=== PATIENT | female | born 1980 | race Caucasian/White ===

== ENCOUNTER 2018-09-05 20:48 | Emergency (ER) | payer SELFPAY ==
[~2018-09-05] VITALS: Ht 167.6 cm; Wt 99.8 kg
[~2018-09-05 20:48] MED LIST: ACHYD1T PO; CIPR500T78 PO; DCS100C PO; HYDR-3720 PO; IBP800T PO; METR500T PO; NITR100C3 PO; PHEN-566 PO; PREN1TAB14 PO; PREN1TAB19 PO
--- OUTSIDE RECORDS SUMMARY | 2018-09-05 20:53 | XMS REPORT ---
Author Author [facility] Address [address] [place] [address] Care Team Providers Care Quality Director Name Role Phone ALCIDES SANTILLAN Unavailable PROBLEMS Type Condition ICD9-CM Code FWP07-AV Code Onset Dates Condition Status SNOMED Code Problem Chronic pain syndrome G89.4 Active 924010389 Problem Long-term use of high-risk medication Z79.899 Active 043804510 Problem Low back pain M54.5 Active 729908520 Problem Obesity E66.9 Active 739041322 ALLERGIES No Known Allergies ENCOUNTERS Encounter Location Date Diagnosis [place] [id number] [place] [address] 61178- 2966 Apr, [facility] [place] [id number] [place] [address] 23529- 9684 Apr, Obesity E66.9 and Low back pain M54.5 [place] [id number] [place] [address] 21015- 4509 Mar, Chronic pain syndrome G89.4 [place] [id number] [place] [address] 63740- 8504 Feb, Chronic pain syndrome G89.4 ; Low back pain M54.5 ; Nipple discharge N64.52 ; Submandibular lymphadenopathy R59.0 and Obesity E66.9 [facility] [place] [id number] [place] [address] 85639- 6707 Jan, Low back pain M54.5 [place] [id number] [place] [address] 05622- 8130 Dec, Low back pain M54.5 [place] [address] 62896- 3427 Nov, [facility] [place] [id number] [place] [address] 80361- 0671 Nov, Low back pain M54.5 [facility] [place] [id number] [place] [address] 85623- 0715 Nov, Long-term use of high-risk medication Z79.899 ; Obesity E66.9 and Low back pain M54.5 [facility] [place] [id number] [place] [address] 70568- 5099 Nov, Obesity E66.9 ; Low back pain M54.5 and Long-term use of high-risk medication Z79.899 [facility] [place] [id number] [place] [address] 75122- 7759 Nov, [facility] [place] [id number] [place] [address] 88817- 6489 Oct, Low back pain M54.5 [facility] [place] [id number] [place] [address] 67314- 6778 September, Low back pain M54.5 and Obesity E66.9 [facility] [place] [address] 51627- 3445 Aug, Low back pain M54.5 [facility] [place] [id number] [place] [address] 33905- 0143 Jul, Low back pain M54.5 [facility] [place] [id number] [place] [address] 96042- 5133 Jul, [facility] [place] [id number] [place] [address] 01802- 5599 Jul, Low back pain M54.5 ; Obesity E66.9 and Submandibular lymphadenopathy R59.0 [facility] [place] [id number] [place] [address] 37802- 5440 May, Low back pain M54.5 [facility] [place] [address] 21400- 5226 Apr, Low back pain M54.5 [facility] [place] [address] [facility] [place] [id number] [place] [address] 52235- 2785 Mar, Low back pain M54.5 [facility] [place] [address] [facility] [id number] [place] [address] 74735- 1619 Feb, Low back pain M54.5 [facility] [place] [id number] [place] [address] 93584- 1450 Feb, Low back pain M54.5 [facility] [place] [id number] [place] [address] 44138- 1030 Jan, Low back pain M54.5 [facility] [place] [id number] [place] [address] 34790- 2022 Dec, Low back pain M54.5 ; Chronic pain syndrome G89.4 ; Anterior cervical adenopathy R59.0 and Overweight E66.3 [facility] [place] [id number] [place] [address] 43564- 0586 Dec, Low back pain M54.5 [facility] [place] [id number] [place] [address] 62624- 9084 Nov, Low back pain M54.5 [facility] [place] [id number] [place] [address] 09611- 9709 Oct, Low back pain M54.5 [facility] [place] [id number] [place] [address] 64721- 0174 September, Low back pain M54.5 ; Chronic pain syndrome G89.4 and Obesity E66.9 [facility] [place] [id number] [place] [address] 32265- 2993 September, Low back pain M54.5 [facility] [place] [id number] [place] [address] 00985- 4946 Aug, Low back pain M54.5 [facility] [place] [id number] [place] [address] 47899- 2479 Jul, Low back pain M54.5 [facility] [place] [id number] [place] [address] 88305- 9991 Jul, Anterior cervical adenopathy R59.0 [facility] [place] [id number] [place] [address] 87670- 0510 Jul, [facility] [place] [id number] [place] [address] 53636- 0464 Jul, Low back pain M54.5 ; Obesity E66.9 and Anterior cervical adenopathy R59.0 [facility] [place] [id number] [place] [address] 77154- 0486 May, [facility] [place] [id number] [place] [address] 90567- 4451 Apr, [facility] [place] [id number] [place] [address] 52773- 4942 Mar, Low back pain M54.5 and Obesity E66.9 [facility] [place] [id number] [place] [address] 15921- 7245 Feb, [facility] [place] [id number] [place] [address] 30345- 7813 Jan, [facility] [place] [id number] [place] [address] 88849- 3471 Jan, [facility] [place] [id number] [place] [address] 35721- 6556 Dec, Low back pain M54.5 and Obesity E66.9 [facility] [place] [id number] [place] [address] 31399- 9464 Nov, Low back pain M54.5 and Obesity E66.9 [facility] [place] [id number] [place] [address] 47821- 8024 Oct, Low back pain M54.5 and Obesity E66.9 [facility] [place] [id number] [place] [address] 78291- 4945 Oct, Low back pain M54.5 ; Obesity E66.9 and Long-term use of high-risk medication Z79.899 [facility] [place] [id number] [place] [address] 78416- 5103 September, [facility] [place] [address] 12921- 3378 September, Low back pain M54.5 ; Obesity E66.9 and Otitis externa of left ear H60.92 [facility] [place] [id number] [place] [address] 92654- 5979 Jul, [facility] [place] [id number] [place] [address] 31208- 1322 Jul, [facility] [place] [id number] [place] [address] 67640- 5458 Jul, Low back pain M54.5 and Obesity E66.9 [facility] [place] [id number] [place] [address] 51716- 5682 May, Low back pain M54.5 ; Obesity E66.9 and History of long- term use of multiple prescription drugs Z92.29 [facility] [id number] [place] [address] [id number] Apr, Encounter for dental examination Z01.20 [facility] [id number] [place] [address] [id number] Apr, Encounter for dental examination Z01.20 [facility] [place] [id number] [place] [address] 56529- 8821 Apr, [facility] [place] [id number] [place] [address] 78328- 0627 Apr, Low back pain M54.5 and Obesity E66.9 [facility] [place] [id number] [place] [address] 17517- 1184 Mar, Low back pain M54.5 and Obesity E66.9 [facility] [place] [id number] [place] [address] 17984- 8149 Feb, Lumbago 724.2 and Obesity, unspecified 278.00 [facility] [place] [id number] [place] [address] 45157- 7495 Jan, Unspecified episodic mood disorder 296.90 and Anxiety state , unspecified 300.00 [place] [address] 79100- 0995 Jan, Lumbago 724.2 and Obesity, unspecified 278.00 [place] [address] 63735- 2039 Jan, [place] [id number] [place] [address] 88380- 6794 Dec, Lumbago 724.2 and Obesity, unspecified 278.00 [place] [id number] [place] [address] 58983- 5103 Nov, Lumbago 724.2 and Obesity, unspecified 278.00 [place] [id number] [place] [address] 91271- 4969 Oct, Lumbago 724.2 and Obesity, unspecified 278.00 [place] [id number] [place] [address] 35552- 7859 September, Otitis externa of left ear 380.10 ; Ear pain 388.70 and Tooth decayed 521.00 [place] [id number] [place] [address] 56637- 8010 September, Lumbago 724.2 ; Obesity, unspecified 278.00 ; Other chronic pain 338.29 and Unspecified symptom associated with female genital organs 625.9 [place] [id number] [place] [address] 31201- 1471 Aug, [place] [address] 27363- 2546 Aug, [facility] [place] [facility] [address] [id number] [place] [address]- 7910 Jul, [facility] [place] [facility] [address] [id number] [place] [address]- 1331 Jul, [facility] [place] [facility] [address] [id number] [place] [address]- 7185 Jul, [facility] [place] [facility] [address] [id number] [place] [address]- 5996 Jul, [facility] [place] [facility] [address] [id number] [place] [address]- 2210 May, [facility] [place] [facility] [address] [id number] [place] [address]- 4183 May, [facility] [place] [facility] [address] [id number] [address]- 0238 May, [facility] [place] [facility] [address] [id number] [place] [address]- 2025 May, [facility] [place] [facility] [address] [id number] [place] [address]- 4803 Apr, [facility] [place] [facility] [address] [id number] [place] [address]- 5450 Apr, [facility] [place] [facility] [address] [id number] [place] [address]- 7530 Mar, [facility] [place] [facility] [address] [id number] [place] [address]- 0461 Mar, [facility] [place] [facility] [address] [id number] [place] [address]- 3126 Feb, [facility] [place] [facility] [address] [id number] [place]- 5465 Feb, [facility] [place] [facility] [address] [id number] [place] [address]- 4239 Jan, [facility] [place] [facility] [address] [id number] [place] [address]- 6712 Jan, [facility] [place] [facility] [address] [id number] [place] [address]- 6223 Dec, [facility] [place] [facility] [address] [id number] [place] [address]- 0986 Dec, [facility] [place] [facility] [address] [id number] [place] [address]- 4643 Nov, [facility] [place] [facility] [address] [id number] [place] [address]- 3984 Nov, [facility] [place] [facility] [address] [id number] [place] [address]- 3712 Nov, [facility] [place] [facility] [address] [id number] [place] [address]- 3342 Nov, [facility] [place] [facility] [address] [id number] [place] [address]- 4230 Oct, [facility] [place] [facility] [address] [id number] [place] [address]- 6764 Oct, [facility] [place] [facility] [address] [id number] [place] [address]- 2874 Apr, [facility] [place] [facility] [address] [id number] [place] [address]- 8184 Apr, [facility] [place] [facility] [address] [id number] [place] [address]- 6937 Nov, [facility] [place] [facility] [address] [id number] [place] [address]- 2659 Nov, [facility] [place] [facility] [address] [id number] [place] [address]- 2546 Jul, [facility] [place] [facility] [address] [id number] [place] [address]- 2546 Jul, [facility] [place] [facility] [address] [id number] [place] [address]- 2772 Jan, [facility] [place] [address] [facility] [id number] [place] [address]- 2156 Jul, IMMUNIZATIONS No Known Immunizations SOCIAL HISTORY Never Assessed REASON FOR VISIT Weight and pain management Rad Mckeon MA PLAN OF CARE Activity Details Follow Up 4 Weeks. 3 Months Reason:weight. Pain VITAL SIGNS Height 66 in 2018-05-10 Weight 216.2 lbs 2018-05-10 Temperature 97.9 degrees Fahrenheit 2018-05-10 Heart Rate 63 bpm 2018-05-10 Respiratory Rate 18 2018-05-10 BMI 34.89 kg/m2 2018-05-10 Blood pressure systolic 122 mmHg 2018-05-10 Blood pressure diastolic 70 mmHg 2018-05-10 MEDICATIONS Medication Instructions Dosage Frequency Start Date End Date Duration Status Hydrocodone-Acetaminophen 10-325 MG Orally every 8 hours PRN pain- Must last 28 days 1 Tablet Apr, 28 days Active Phentermine HCl 37.5 mg Orally Once a day 1 tablet 24h 28 days Active RESULTS No Results PROCEDURES No Known procedures INSTRUCTIONS MEDICATIONS ADMINISTERED No Known Medications MEDICAL (GENERAL) HISTORY Type Description Date Medical History chronic pain Medical History obesity Medical History hernia Medical History headache Medical History PCOS (Polycystic Ovary Syndrome) Surgical History cholecystectomy Berger) 02/2008 Surgical History hernia repair-umbilical 02/2008 Surgical History partial hysterectomy (Александр) 08/2013 Surgical History section 2007,2012,2013 Surgical History carpal tunnel release (B) Surgical History salpingectomy (R) r/t ectopic Hospitalization History Surgery(s)/Childbirth(s) only
--- OUTSIDE RECORDS SUMMARY | 2018-09-05 20:53 | XMS REPORT ---
Author Author Migration, Doctor Organization [facility] Address Unknown Phone Unavailable Care Team Providers Care Deputy General Counsel Name Role Phone Migration, Doctor Unavailable Unavailable PROBLEMS Type Condition ICD9-CM Code [id number] Code Onset Dates Condition Status SNOMED Code Problem Long-term use of high-risk medication Z79.899 Active 471842377 Problem Chronic pain syndrome G89.4 Active 810752101 Problem Obesity E66.9 Active 212563358 Problem Low back pain M54.5 Active 810751197 ALLERGIES No Information ENCOUNTERS Encounter Location Date Diagnosis [place] [id number] [place] [address] 78980- 8570 Aug, [facility] [address] 9[address]23- 2240 Jul, Low back pain M54.5 [facility] [id number] [place] [address] 47583- 8223 Jul, Low back pain M54.5 [facility] [id number] [place] [address] 51409- 5949 May, Low back pain M54.5 [facility] [id number] [place] [address] 54638- 0618 Apr, [facility] [address] 01223- 5582 Apr, Obesity E66.9 and Low back pain M54.5 [facility] [address] 23381- 0324 Mar, Chronic pain syndrome G89.4 [facility] [id number] [place] [address] 54689- 5905 17 Feb, 2018 Chronic pain syndrome G89.4 ; Low back pain M54.5 ; Nipple discharge N64.52 ; Submandibular lymphadenopathy R59.0 and Obesity E66.9 [facility] [id number] [place] [address] 39837- 4740 Jan, Low back pain M54.5 [facility] [id number] [place] [address] 87863- 3983 Dec, Low back pain M54.5 [facility] [address] 14655- 0077 Nov, [facility] [id number] [place] [address] 48442- 1126 Nov, Low back pain M54.5 [facility] [id number] [place] [address] 66856- 4073 Nov, Long-term use of high-risk medication Z79.899 ; Obesity E66.9 and Low back pain M54.5 [facility] [id number] [place] [address] 06949- 5791 Nov, Obesity E66.9 ; Low back pain M54.5 and Long-term use of high-risk medication Z79.899 [facility] [id number] [place] [address] 60174- 5519 Nov, [facility] [id number] [place] [address] 39979- 5474 Oct, Low back pain M54.5 [facility] [id number] [place] [address] 13262- 7771 September, Low back pain M54.5 and Obesity E66.9 [facility] [id number] [place] [address] 77132- 9635 Aug, Low back pain M54.5 [facility] [id number] [place] [address] 67929- 7843 Jul, Low back pain M54.5 [facility] [address] 64567- 9329 Jul, [facility] [address] [facility] [id number] [place] [address] 14065- 7619 Jul, Low back pain M54.5 ; Obesity E66.9 and Submandibular lymphadenopathy R59.0 [facility] [id number] [place] [address] 68608- 8114 May, Low back pain M54.5 [facility] [address] 62329- 0628 Apr, Low back pain M54.5 [facility] [address] 85374- 9077 Mar, Low back pain M54.5 [facility] [id number] [place] [address] 13486- 6417 Feb, Low back pain M54.5 [facility] [address] 00824- 3299 Feb, Low back pain M54.5 [facility] [address] 19783- 1793 Jan, Low back pain M54.5 [facility] [id number] [place] [address] 04675- 2713 Dec, Low back pain M54.5 ; Chronic pain syndrome G89.4 ; Anterior cervical adenopathy R59.0 and Overweight E66.3 [facility] [id number] [place] [address] 35776- 3029 Dec, Low back pain M54.5 [facility] [id number] [place] [address] 85976- 4606 Nov, Low back pain M54.5 [facility] [id number] [place] [address] 53832- 8823 Oct, Low back pain M54.5 [facility] [id number] [place] [address] 93592- 3375 September, Low back pain M54.5 ; Chronic pain syndrome G89.4 and Obesity E66.9 [facility] [id number] [place] [address] 89575- 8361 September, Low back pain M54.5 [facility] [id number] [place] [address] 07698- 1205 Aug, Low back pain M54.5 [facility] [id number] [place] [address] 00213- 8575 Jul, Low back pain M54.5 [facility] [id number] [place] [address] 32047- 8132 Jul, Anterior cervical adenopathy R59.0 [facility] [id number] [place] [address] 55669- 1379 Jul, [facility] [id number] [place] [address] 97645- 8062 Jul, Low back pain M54.5 ; Obesity E66.9 and Anterior cervical adenopathy R59.0 [facility] [id number] [place] [address] 80195- 5129 May, [facility] [id number] [place] [address] 75728- 6221 Apr, [facility] [id number] [place] [address] 62217- 9255 Mar, Low back pain M54.5 and Obesity E66.9 [facility] [id number] [place] [address] 13665- 3329 Feb, [facility] [id number] [place] [address] 06921- 2382 22 Jan, 2016 [facility] [id number] [place] [address] 91950- 8259 19 Jan, 2016 [facility] [id number] [place] [address] 53235- 9450 Dec, Low back pain M54.5 and Obesity E66.9 [facility] [id number] [place] [address] 61174- 8237 Nov, Low back pain M54.5 and Obesity E66.9 [facility] [id number] [place] [address] 67207- 2067 Oct, Low back pain M54.5 and Obesity E66.9 [facility] [id number] [place] [address] 55492- 1873 Oct, Low back pain M54.5 ; Obesity E66.9 and Long-term use of high-risk medication Z79.899 [facility] [id number] [place] [address] 27157- 3309 September, [place] [address] 65410- 2314 September, Low back pain M54.5 ; Obesity E66.9 and Otitis externa of left ear H60.92 [facility] [id number] [place] [address] 19305- 9694 Jul, [facility] [id number] [place] [address] 99974- 4171 Jul, [facility] [id number] [place] [address] 00656- 6009 Jul, Low back pain M54.5 and Obesity E66.9 [facility] [id number] [place] [address] 26857- 2125 May, Low back pain M54.5 ; Obesity E66.9 and History of long- term use of multiple prescription drugs Z92.29 [facility] [id number] [place] [address] [id number] Apr, Encounter for dental examination Z01.20 [facility] [id number] [place] [address] [id number] Apr, Encounter for dental examination Z01.20 [facility] [id number] [place] [address] 62909- 9863 Apr, [facility] [id number] [place] [address] 665851- 9624 Apr, Low back pain M54.5 and Obesity E66.9 [place] [address] 264473- 4370 Mar, Low back pain M54.5 and Obesity E66.9 [place] [id number] [place] [address] 64363- 4429 Feb, Lumbago 724.2 and Obesity, unspecified 278.00 [place] [id number] [place] [address] 19483- 4003 Jan, Unspecified episodic mood disorder 296.90 and Anxiety state , unspecified 300.00 [place] [id number] [place] [address] 52291- 9328 Jan, Lumbago 724.2 and Obesity, unspecified 278.00 [place] [id number] [place] [address] 39806- 8209 Jan, [facility] [id number] [place] [address] 13732- 9408 Dec, Lumbago 724.2 and Obesity, unspecified 278.00 [place] [id number] [place] [address] 40431- 3017 Nov, Lumbago 724.2 and Obesity, unspecified 278.00 [place] [id number] [place] [address] 95667- 7352 Oct, Lumbago 724.2 and Obesity, unspecified 278.00 [place] [id number] [place] [address] [id number]- 9424 September, Otitis externa of left ear 380.10 ; Ear pain 388.70 and Tooth decayed 521.00 [facility] [address] [address]- 6239 September, Lumbago 724.2 ; Obesity, unspecified 278.00 ; Other chronic pain 338.29 and Unspecified symptom associated with female genital organs 625.9 [facility] [address] [address]- 2143 Aug, [facility] [id number] [address]- 7736 Aug, [facility] [address] [address]- 4786 Jul, [facility] [id number] [address]- 9586 Jul, [facility] [address] [address]- 2946 Jul, [facility] [address] [address]- 8076 Jul, [facility] [address] [address]- 9938 May, [facility] [address] [address]- 9006 May, [facility] [address] [address]- 7418 May, [facility] [address] [address]- 5116 May, [facility] [address] [address]- 7356 Apr, [facility] [address] [address]- 5856 Apr, [facility] [id number] [address]- 7036 Mar, [facility] [id number] [place] [address]- 5137 Mar, [facility] [place] [facility] [address] [id number] [place] [address]- 0608 Feb, [facility] [place] [facility] [address] [id number] [place] [address]- 6040 Feb, [facility] [place] [facility] [address] [id number] [place] [address]- 2669 Jan, [facility] [place] [facility] [address] [id number] [place] [address]- 3721 Jan, [facility] [place] [facility] [address] [id number] [place] [address]- 8829 Dec, [facility] [place] [facility] [address] [id number] [place] [address]- 2850 Dec, [facility] [place] [facility] [address] [id number] [place] [address]- 3125 Nov, [facility] [place] [facility] [address] [id number] [place] [address]- 9894 Nov, [facility] [place] [facility] [address] [id number] [place] [address]- 4020 Nov, [facility] [place] [facility] [address] [id number] [place] [address]- 1742 Nov, [facility] [place] [facility] [address] [id number] [place] [address]- 6991 Oct, [facility] [place] [facility] [address] [id number] [place] [address]- 4542 Oct, [facility] [place] [facility] [address] [id number] [place] [address]- 5329 Apr, [facility] [place] [facility] [address] [id number] [place] [address]- 6486 Apr, [facility] [place] [facility] [address] [id number] [place] [address]- 0302 Nov, [facility] [address] [facility] [id number] [address]- 6816 Nov, [facility] [address] [facility] [id number] [address]- 2546 Jul, [facility] [address] [facility] [id number] [address]- 2546 Jul, [facility] [id number] [address]- 2546 Jan, [facility] [address] [facility] [id number] [address]- 7256 Jul, IMMUNIZATIONS No Known Immunizations SOCIAL HISTORY Never Assessed [place]AS[place]ISIT [facility] [place] VITAL SIGNS MEDICATIONS Medication Instructions Dosage Frequency Start Date End Date Duration Status Hydrocodone-Acetaminophen 10-325 mg 1 Tablet by Oral route every 8 hours PRN MUST LAST 30 DAYS Jul, Active phentermine 37.5 mg 1 capsule by Oral route 1 time per day for 30 day(s) DX - OBESITY May, Active RESULTS No Results PROCEDURES No Known [...]
--- OUTSIDE RECORDS SUMMARY | 2018-09-05 20:54 | XMS REPORT ---
Author Author KING ALCIDES [facility] Address [address] [place] [address] Care Team Providers Care [employer] Maintenance Consultant Name Role Phone ALCIDES SANTILLAN Unavailable PROBLEMS Type Condition ICD9-CM Code CFK87-WT Code Onset Dates Condition Status SNOMED Code Problem Chronic pain syndrome G89.4 Active 806124411 Problem Long-term use of high-risk medication Z79.899 Active 940674123 Problem Low back pain M54.5 Active 251296301 Problem Obesity E66.9 Active 373077580 ALLERGIES No Information ENCOUNTERS Encounter Location Date Diagnosis [place] [id number] [address] Mar, [facility] [address] [address] Mar, Chronic pain syndrome G89.4 [facility] [address] [address]- [address] Feb, Chronic pain syndrome G89.4 ; Low back pain M54.5 ; Nipple discharge N64.52 ; Submandibular lymphadenopathy R59.0 and Obesity E66.9 [facility] [address] [place] [id number] [place] [address]01- 2282 Jan, Low back pain M54.5 [facility] [address] [place] [id number] [place] [address] 21202- 5906 Dec, Low back pain M54.5 [facility] [address] [address]- [address] Nov, [facility] [address] 327[address]- 9965 Nov, Low back pain M54.5 [facility] [address] [place] [id number] [place] [address] 76215- 8511 Nov, Long-term use of high-risk medication Z79.899 ; Obesity E66.9 and Low back pain M54.5 [facility] [address] [place] [id number] [place] [address] 31291- 8568 Nov, Obesity E66.9 ; Low back pain M54.5 and Long-term use of high-risk medication Z79.899 [facility] [address] [place] [id number] [place] [address] 94494- 4419 Nov, [facility] [address] [place] [id number] [place] [address] 70397- 8831 Oct, Low back pain M54.5 [facility] [address] [place] [id number] [place] [address] 45245- 4891 September, Low back pain M54.5 and Obesity E66.9 [facility] [address] [place] [id number] [place] [address] 78394- 0604 Aug, Low back pain M54.5 [facility] [address] [place] [id number] [place] [address] 70082- 5387 Jul, Low back pain M54.5 [facility] [address] [place] [id number] [place] [address] 17462- 8289 Jul, [facility] [address] [place] [id number] [place] [address] 24804- 3825 Jul, Low back pain M54.5 ; Obesity E66.9 and Submandibular lymphadenopathy R59.0 [facility] [address] [place] [id number] [place] [address] 88632- 9052 May, Low back pain M54.5 [facility] [address] [place] [id number] [place] [address] 50770- 2700 Apr, Low back pain M54.5 [facility] [address] [place] [id number] [place] [address] 57159- 3475 Mar, Low back pain M54.5 [facility] [address] [place] [id number] [place] [address] 23114- 0314 Feb, Low back pain M54.5 [facility] [address] [facility] [id number] [place] [address] 52429- 1077 Feb, Low back pain M54.5 [facility] [address] [place] [id number] [place] [address] 84761- 4997 Jan, Low back pain M54.5 [facility] [address] [place] [id number] [place] [address] 65150- 1528 Dec, Low back pain M54.5 ; Chronic pain syndrome G89.4 ; Anterior cervical adenopathy R59.0 and Overweight E66.3 [facility] [address] [place] [id number] [place] [address] 17062- 2097 Dec, Low back pain M54.5 [facility] [address] [place] [id number] [place] [address] 06393- 4777 Nov, Low back pain M54.5 [facility] [address] [place] [id number] [place] [address] 49005- 3178 Oct, Low back pain M54.5 [facility] [address] [place] [id number] [place] [address] 63614- 0873 September, Low back pain M54.5 ; Chronic pain syndrome G89.4 and Obesity E66.9 [facility] [address] [place] [id number] [place] [address] 04603- 6498 September, Low back pain M54.5 [facility] [address] [place] [id number] [place] [address] 10917- 9045 Aug, Low back pain M54.5 [facility] [address] [place] [id number] [place] [address] 00224- 0092 Jul, Low back pain M54.5 [facility] [address] [place] [id number] [place] [address] 77523- 3957 Jul, Anterior cervical adenopathy R59.0 [facility] [id number] [place] [address] 66652- 3708 Jul, [facility] [address] [place] [id number] [place] [address] 63433- 7578 Jul, Low back pain M54.5 ; Obesity E66.9 and Anterior cervical adenopathy R59.0 [facility] [address] [place] [id number] [place] [address] 12181- 3874 May, [facility] [id number] [place] [address] 82229- 1699 Apr, [facility] [address] [place] [id number] [place] [address] 60466- 4869 Mar, Low back pain M54.5 and Obesity E66.9 [facility] [address] [place] [id number] [place] [address] 97920- 8247 Feb, [facility] [address] [place] [id number] [place] [address] 65080- 0121 Jan, [facility] [address] [place] [id number] [place] [address] 44383- 8915 Jan, [facility] [address] [place] [id number] [place] [address] 81518- 4482 Dec, Low back pain M54.5 and Obesity E66.9 [facility] [id number] [place] [address] 63985- 7972 Nov, Low back pain M54.5 and Obesity E66.9 [facility] [id number] [place] [address] 12747- 5179 Oct, Low back pain M54.5 and Obesity E66.9 [facility] [address] [place] [id number] [place] [address] 71792- 8121 Oct, Low back pain M54.5 ; Obesity E66.9 and Long-term use of high-risk medication Z79.899 [facility] [address] [place] [id number] [place] [address] 33954- 7693 September, [facility] [address] [place] [id number] [place] [address] 09597- 8648 September, Low back pain M54.5 ; Obesity E66.9 and Otitis externa of left ear H60.92 [facility] [address] 12131- 6961 Jul, [facility] [address] [place] [id number] [place] [address] 72808- 9082 Jul, [facility] [address] [place] [id number] [place] [address] 97285- 0288 Jul, Low back pain M54.5 and Obesity E66.9 [facility] [address] [place] [id number] [place] [address] 69151- 2814 May, Low back pain M54.5 ; Obesity E66.9 and History of long- term use of multiple prescription drugs Z92.29 [facility] [id number] [place] [address] [id number] Apr, Encounter for dental examination Z01.20 [facility] [address] [place] [id number] [place] [address] [id number] Apr, Encounter for dental examination Z01.20 [facility] [address] [place] [id number] [place] [address] 46949- 3576 Apr, [facility] [address] [place] [id number] [place] [address] 65373- 8868 Apr, Low back pain M54.5 and Obesity E66.9 [facility] [address] [place] [id number] [place] [address] 13814- 3015 Mar, Low back pain M54.5 and Obesity E66.9 [facility] [address] [place] [id number] [place] [address] 87905- 5004 Feb, Lumbago 724.2 and Obesity, unspecified 278.00 [facility] [address] [address]- 9367 Jan, Unspecified episodic mood disorder 296.90 and Anxiety state , unspecified 300.00 [facility] [address] [place] [id number] [place] [address] 07775- 7941 Jan, Lumbago 724.2 and Obesity, unspecified 278.00 [facility] [address] [place] [id number] [place] [address] 06889- 4166 Jan, [facility] [address] [place] [id number] [place] [address] 00435- 0663 Dec, Lumbago 724.2 and Obesity, unspecified 278.00 [place] [address] [place] [id number] [place] [address] 73951- 1407 Nov, Lumbago 724.2 and Obesity, unspecified 278.00 [place] [address] [place] [id number] [place] [address] 08860- 7896 Oct, Lumbago 724.2 and Obesity, unspecified 278.00 [place] [address] [place] [id number] [place] [address] 74802- 3410 September, Otitis externa of left ear 380.10 ; Ear pain 388.70 and Tooth decayed 521.00 [place] [address] [place] [id number] [place] [address] 45656- 3496 September, Lumbago 724.2 ; Obesity, unspecified 278.00 ; Other chronic pain 338.29 and Unspecified symptom associated with female genital organs 625.9 [place] [address] [place] [id number] [place] [address] 66501- 6001 Aug, [place] [address] [place] [id number] [place] [address] 81978- 6757 Aug, [place] [address] [place] [id number] [place] [address] 26459- 6397 Jul, [facility] [place] [facility] [address] [id number] [place] [address]- 2417 Jul, [facility] [place] [facility] [address] [id number] [place] [address]- 8406 Jul, [facility] [place] [facility] [address] [id number] [place] [address]- 7968 Jul, [facility] [place] [facility] [address] [id number] [place] [address]- 6801 May, [facility] [place] [facility] [address] [id number] [place] [address]- 5177 May, [facility] [place] [facility] [address] [id number] [place] [address]- 5751 May, [facility] [place] [facility] [address] [id number] [place] [address]- 1904 May, [facility] [place] [facility] [address] [id number] [place] [address]- 6443 Apr, [facility] [place] [facility] [address] [id number] [place] [address]- 9990 Apr, [facility] [place] [facility] [address] [id number] [place] [address]- 2139 Mar, [facility] [place] [facility] [address] [id number] [place] [address]- 0485 Mar, [facility] [place] [facility] [address] [id number] [place] [address]- 5087 Feb, [facility] [place] [facility] [address] [id number] [place] [address]- 9501 Feb, [facility] [place] [facility] [address] [id number] [place] [address]- 9681 Jan, [facility] [place] [facility] [address] [id number] [place] [address]- 8875 Jan, [facility] [place] [facility] [address] [id number] [place] [address]- 0316 Dec, [facility] [address] [facility] [id number] [place] [address]998 Dec, [facility] [address] [facility] [id number] [place] [address]- 3207 Nov, [facility] [address] [facility] [id number] [place] [address]- 0116 Nov, [facility] [address] [facility] [id number] [place] [address]- 6652 Nov, [facility] [address] [facility] [id number] [place] [address]- 0973 Nov, [facility] [address] [facility] [id number] [place] [address]- 4908 Oct, [facility] [address] [facility] [id number] [place] [address]- 5681 Oct, [facility] [address] [facility] [id number] [place] [address]- 3204 Apr, [facility] [address] [facility] [id number] [place] [address]32 Apr, [facility] [address] [facility] [id number] [place] [address]- 8578 Nov, [facility] [address] [facility] [id number] [address]- 5519 Nov, [facility] [address] [facility] [id number] 5908 Jul, [facility] [address] [facility] [id number] [place] [address]- 1430 Jul, [facility] [address] [facility] [id number] [address]- 7776 Jan, [facility] [address] [facility] [id number] [place] 7102 Jul, IMMUNIZATIONS No Known Immunizations SOCIAL HISTORY Never Assessed REASON FOR VISIT Controlled refill 04/13 PLAN OF CARE VITAL SIGNS MEDICATIONS Medication Instructions Dosage Frequency Start Date End Date Duration Status Hydrocodone-Acetaminophen 10-325 MG Orally every 8 hours PRN pain- Must last 28 days 1 Tablet Mar, 28 days Active RESULTS No Results PROCEDURES [...]
--- OUTSIDE RECORDS SUMMARY | 2018-09-05 20:54 | XMS REPORT ---
Author Author ALCIDSE SANTILLAN [facility] Address [address] [place] [address] Care Team Providers Care Lath Hand Name Role Phone LOBO SANTILLANTA Unavailable PROBLEMS Type Condition ICD9-CM Code IVS51-WQ Code Onset Dates Condition Status SNOMED Code Problem Chronic pain syndrome G89.4 Active 412719851 Problem Long-term use of high-risk medication Z79.899 Active 715609280 Problem Low back pain M54.5 Active 282136664 Problem Obesity E66.9 Active 187034092 ALLERGIES No Information ENCOUNTERS Encounter Location Date Diagnosis [place] [id number] [address] Jan, Low back pain M54.5 [facility] [address] [address] Dec, Low back pain M54.5 [facility] [address] [place] [id number] [place] [address] 65604- 2677 Nov, [facility] [address] [id number] [place] [address] 40008- 5027 Nov, Low back pain M54.5 [facility] [address] [address] Nov, Long-term use of high-risk medication Z79.899 ; Obesity E66.9 and Low back pain M54.5 [facility] [address] [address]- [address] Nov, Obesity E66.9 ; Low back pain M54.5 and Long-term use of high-risk medication Z79.899 [facility] [address] [id number] [place] [address] 26132- 2728 Nov, [facility] [address] [facility] [id number] [place] [address] 07396- 1240 Oct, Low back pain M54.5 [facility] [address] [facility] [id number] [place] [address] 35406- 4366 September, Low back pain M54.5 and Obesity E66.9 [facility] [address] [id number] [place] [address] 18892- 2435 Aug, Low back pain M54.5 [facility] [address] [place] [id number] [place] [address] 20951- 7847 Jul, Low back pain M54.5 [facility] [address] [id number] [place] [address] 18994- 1659 Jul, [facility] [id number] [place] [address] 74643- 6628 Jul, Low back pain M54.5 ; Obesity E66.9 and Submandibular lymphadenopathy R59.0 [facility] [address] [id number] [place] [address] 08766- 2763 May, Low back pain M54.5 [facility] [address] [place] [id number] [place] [address] 77961- 3028 Apr, Low back pain M54.5 [facility] [address] [place] [id number] [place] [address] 79690- 9501 Mar, Low back pain M54.5 [facility] [address] [place] [id number] [place] [address] 39079- 8470 Feb, Low back pain M54.5 [facility] [address] [id number] [place] [address] 35478- 5792 03 Feb, 2017 Low back pain M54.5 [facility] [address] [place] [id number] [place] [address] 85596- 8332 05 Jan, 2017 Low back pain M54.5 [facility] [address] [place] [address] Dec, Low back pain M54.5 ; Chronic pain syndrome G89.4 ; Anterior cervical adenopathy R59.0 and Overweight E66.3 [facility] [id number] [place] [address] 80263- 0722 Dec, Low back pain M54.5 [facility] [address] [id number] [place] [address] 08529- 4875 Nov, Low back pain M54.5 [facility] [address] [place] [id number] [place] [address] 30589- 8499 Oct, Low back pain M54.5 [facility] [address] [place] [id number] [place] [address] 69045- 2621 September, Low back pain M54.5 ; Chronic pain syndrome G89.4 and Obesity E66.9 [facility] [address] [place] [id number] [place] [address] 73127- 7416 September, Low back pain M54.5 [facility] [address] [place] [place] [id number] [place] [address] 65728- 5253 Aug, Low back pain M54.5 [facility] [address] [place] [id number] [place] [address] 96897- 5750 Jul, Low back pain M54.5 [facility] [address] [place] [id number] [place] [address] 42123- 0407 Jul, Anterior cervical adenopathy R59.0 [facility] [address] [place] [place] [id number] [place] [address] 94283- 0347 Jul, [facility] [address] [place] [id number] [place] [address] 78677- 8388 Jul, Low back pain M54.5 ; Obesity E66.9 and Anterior cervical adenopathy R59.0 [facility] [id number] [place] [address] 55650- 4857 May, [facility] [address] [address] 9277 14 Apr, 2016 [facility] [address] [id number] [place] [address] 25662- 8929 Mar, Low back pain M54.5 and Obesity E66.9 [facility] [address] [id number] [place] [address] 40605- 8967 Feb, [facility] [address] [place] [id number] [place] [address] 86789- 7420 Jan, [facility] [address] [place] [id number] [place] [address] 09852- 1105 Jan, [facility] [address] [id number] [place] [address] 89412- 8198 Dec, Low back pain M54.5 and Obesity E66.9 [facility] [address] [id number] [place] [address] 16382- 7410 Nov, Low back pain M54.5 and Obesity E66.9 [facility] [address] [id number] [place] [address] 64249- 1707 Oct, Low back pain M54.5 and Obesity E66.9 [facility] [address] [id number] [place] [address] 21118- 8298 Oct, Low back pain M54.5 ; Obesity E66.9 and Long-term use of high-risk medication Z79.899 [facility] [address] [address]- 6311 September, [facility] [address] [id number] [place] [address] 02000- 8078 September, Low back pain M54.5 ; Obesity E66.9 and Otitis externa of left ear H60.92 [facility] [address] [address]- 5934 Jul, [facility] [address] [place] [id number] [place] [address] 20807- 0580 Jul, [facility] [address] [place] [id number] [place] [address] 55536- 3894 Jul, Low back pain M54.5 and Obesity E66.9 [facility] [address] [id number] [place] [address] 85136- 2551 May, Low back pain M54.5 ; Obesity E66.9 and History of long- term use of multiple prescription drugs Z92.29 [facility] [address] [place] [id number] [place] [address] [id number] Apr, Encounter for dental examination Z01.20 [facility] [address] [id number] Apr, Encounter for dental examination Z01.20 [facility] [address] [place] [id number] [place] [address] 18879- 8526 Apr, [facility] [address] [place] [id number] [place] [address] 00214- 8585 Apr, Low back pain M54.5 and Obesity E66.9 [facility] [address] [place] [id number] [place] [address] 03801- 7563 Mar, Low back pain M54.5 and Obesity E66.9 [facility] [address] [id number] [place] [address] 60137- 2417 Feb, Lumbago 724.2 and Obesity, unspecified 278.00 [facility] [address] [place] [place] [id number] [place] [address] 42914- 9827 Jan, Unspecified episodic mood disorder 296.90 and Anxiety state , unspecified 300.00 [facility] [address] [place] [id number] [place] [address] 75849- 1546 Jan, Lumbago 724.2 and Obesity, unspecified 278.00 [facility] [address] [id number] [place] [address] 70197- 6270 Jan, [facility] [address], [place] [address]- 9381 Dec, Lumbago 724.2 and Obesity, unspecified 278.00 [facility] [address] [place] [place] [id number] [place] [address] 989221- 9976 Nov, Lumbago 724.2 and Obesity, unspecified 278.00 [facility] [address] [id number] [place] [address] 11463- 3193 Oct, Lumbago 724.2 and Obesity, unspecified 278.00 [facility] [address] [id number] [place] [address] 366796- 9424 September, Otitis externa of left ear 380.10 ; Ear pain 388.70 and Tooth decayed 521.00 [facility] [id number] [place] [address] 04048- 1372 September, Lumbago 724.2 ; Obesity, unspecified 278.00 ; Other chronic pain 338.29 and Unspecified symptom associated with female genital organs 625.9 [facility] [address] [address]- 9691 Aug, [facility] [id number] [place] [address] 43637- 4218 Aug, [facility] [address], [place] [address]- 7010 Jul, [facility] [id number] [address]- 9531 Jul, [facility] [address], [place] [address]- 4403 Jul, [facility] [address] [id number] [place] [address] 228773- 3245 Jul, [facility] [address] 3232 May, [facility] [address] [id number] [place] [address]- 2096 May, [facility] [place] [facility] [address] [id number] [place] [address]- 3941 May, [facility] [place] [facility] [address] [id number] [place] [address]- 8910 May, [facility] [place] [facility] [address] [id number] [place] [address]- 9472 Apr, [facility] [place] [facility] [address] [id number] [place] [address]- 9268 Apr, [facility] [place] [facility] [address] [id number] [place] [address]- 4164 Mar, [facility] [place] [facility] [address] [id number] [place] [address]- 2150 Mar, [facility] [place] [facility] [address] [id number] [place] [address]- 9317 Feb, [facility] [place] [facility] [address] [id number] [place] [address]- 7869 Feb, [facility] [place] [facility] [address] [id number] [place] [address]- 9374 Jan, [facility] [place] [facility] [address] [id number] [place] [address]- 0842 Jan, [facility] [place] [facility] [address] [id number] [place] [address]- 6304 Dec, [facility] [place] [facility] [address] [id number] [place] [address]- 2247 Dec, [facility] [place] [facility] [address] [id number] [place] [address]- 6816 Nov, [facility] [place] [facility] [address] [id number] [place] [address]- 9795 Nov, [facility] [place] [facility] [address] [id number] [place] [address]- 6891 Nov, [facility] [id number] [address]- 1035 Nov, [facility] [address], [place] [address]- 5038 Oct, [facility] [address], [place] [address]- 2040 Oct, [facility] [address], [place] [address]- 2482 Apr, [facility] [address], [place] [address]- 9932 Apr, [facility] [address], [place] [address]- 6768 Nov, [facility] [address], [place] [address]- 0657 Nov, [facility] [address], [place] [address]- 9325 Jul, [facility] [address] [place] [address]- 0044 Jul, [facility] [address], [place] [address]- 3154 Jan, [facility] [address], [place] [address]- 3868 Jul, IMMUNIZATIONS No Known Immunizations SOCIAL HISTORY Never Assessed REASON FOR VISIT Controlled Med Refill PLAN OF CARE VITAL SIGNS MEDICATIONS Medication Instructions Dosage Frequency Start Date End Date Duration Status Hydrocodone-Acetaminophen 10-325 MG Orally every 8 hours PRN pain- Must last 28 days 1 Tablet Jan, 28 days Active RESULTS No Results PROCEDURES [...]
--- OUTSIDE RECORDS SUMMARY | 2018-09-05 20:54 | XMS REPORT ---
Author Author KING ALCIDES [facility] Address [address] [place] [address] Care Team Providers Care Retail Business Development Manager Name Role Phone ALCIDES SANTILLAN Unavailable PROBLEMS Type Condition ICD9-CM Code WUM85-FB Code Onset Dates Condition Status SNOMED Code Problem Chronic pain syndrome G89.4 Active 293595026 Problem Long-term use of high-risk medication Z79.899 Active 848078475 Problem Low back pain M54.5 Active 317483504 Problem Obesity E66.9 Active [id number] ALLERGIES No Information ENCOUNTERS Encounter Location Date Diagnosis [place] [id number] [place] [address] 13162- 0674 Apr, [facility] [address] 9[address]45- 4788 Apr, Obesity E66.9 and Low back pain M54.5 [facility] [id number] [place] [address] 90671- 7620 Mar, Chronic pain syndrome G89.4 [facility] [id number] [place] [address] 99071- 3899 Feb, Chronic pain syndrome G89.4 ; Low back pain M54.5 ; Nipple discharge N64.52 ; Submandibular lymphadenopathy R59.0 and Obesity E66.9 [facility] [id number] [place] [address] 57548- 5590 Jan, Low back pain M54.5 [facility] [id number] [place] [address] 46605- 4969 Dec, Low back pain M54.5 [place] [address] 59284- 9465 Nov, [facility] [id number] [place] [address] 84768- 8448 Nov, Low back pain M54.5 [facility] [id number] [place] [address] 19277- 2362 Nov, Long-term use of high-risk medication Z79.899 ; Obesity E66.9 and Low back pain M54.5 [facility] [address] 97967- 2879 Nov, Obesity E66.9 ; Low back pain M54.5 and Long-term use of high-risk medication Z79.899 [facility] [address] 78653- 6044 Nov, [facility] [address] 76155- 9970 Oct, Low back pain M54.5 [facility] [id number] [place] [address] 38459- 4232 September, Low back pain M54.5 and Obesity E66.9 [facility] [address] 27303- 9318 Aug, Low back pain M54.5 [facility] [id number] [place] [address] 81029- 0820 Jul, Low back pain M54.5 [facility] [id number] [place] [address] 00456- 5411 Jul, [facility] [id number] [place] [address] 92456- 4477 Jul, Low back pain M54.5 ; Obesity E66.9 and Submandibular lymphadenopathy R59.0 [facility] [id number] [place] [address] 00691- 2819 May, Low back pain M54.5 [facility] [address] 61382- 9306 Apr, Low back pain M54.5 [facility] [address] [facility] [id number] [place] [address] 85004- 4350 Mar, Low back pain M54.5 [facility] [address] [facility] [id number] [place] [address] 23436- 3339 Feb, Low back pain M54.5 [facility] [id number] [place] [address] 14793- 0527 Feb, Low back pain M54.5 [facility] [id number] [place] [address] 60344- 9968 Jan, Low back pain M54.5 [facility] [id number] [place] [address] 99884- 0954 Dec, Low back pain M54.5 ; Chronic pain syndrome G89.4 ; Anterior cervical adenopathy R59.0 and Overweight E66.3 [facility] [id number] [place] [address] 77885- 9658 Dec, Low back pain M54.5 [facility] [id number] [place] [address] 82320- 6372 Nov, Low back pain M54.5 [facility] [id number] [place] [address] 16714- 3300 Oct, Low back pain M54.5 [facility] [id number] [place] [address] 25192- 8254 September, Low back pain M54.5 ; Chronic pain syndrome G89.4 and Obesity E66.9 [facility] [id number] [place] [address] 88648- 7475 September, Low back pain M54.5 [facility] [address] [facility] [id number] [place] [address] 84840- 1882 Aug, Low back pain M54.5 [facility] [id number] [place] [address] 13215- 3029 Jul, Low back pain M54.5 [facility] [id number] [place] [address] 62358- 8459 Jul, Anterior cervical adenopathy R59.0 [facility] [id number] [place] [address] 37222- 6248 Jul, [facility] [id number] [place] [address] 93581- 5016 Jul, Low back pain M54.5 ; Obesity E66.9 and Anterior cervical adenopathy R59.0 [facility] [id number] [place] [address] 66514- 5125 May, [facility] [id number] [place] [address] 19407- 2051 Apr, [facility] [id number] [place] [address] 15401- 2800 Mar, Low back pain M54.5 and Obesity E66.9 [facility] [id number] [place] [address] 23865- 9361 Feb, [facility] [id number] [place] [address] 25245- 1743 Jan, [facility] [id number] [place] [address] 47744- 9397 Jan, [facility] [id number] [place] [address] 84539- 8271 Dec, Low back pain M54.5 and Obesity E66.9 [facility] [id number] [place] [address] 96696- 9709 Nov, Low back pain M54.5 and Obesity E66.9 [facility] [id number] [place] [address] 34287- 4350 Oct, Low back pain M54.5 and Obesity E66.9 [facility] [id number] [place] [address] 69360- 5676 Oct, Low back pain M54.5 ; Obesity E66.9 and Long-term use of high-risk medication Z79.899 [facility] [id number] [place] [address] 36674- 7090 September, [facility] [address] 21681- 2965 September, Low back pain M54.5 ; Obesity E66.9 and Otitis externa of left ear H60.92 [facility] [id number] [place] [address] 49786- 9139 Jul, [facility] [id number] [place] [address] 83909- 9155 Jul, [facility] [id number] [place] [address] 31441- 4725 Jul, Low back pain M54.5 and Obesity E66.9 [facility] [id number] [place] [address] 37078- 4027 May, Low back pain M54.5 ; Obesity E66.9 and History of long- term use of multiple prescription drugs Z92.29 [facility] [id number] [place] [address] [id number] Apr, Encounter for dental examination Z01.20 [facility] [id number] [place] [address] [id number] Apr, Encounter for dental examination Z01.20 [facility] [id number] [place] [address] 49383- 5068 Apr, [facility] [id number] [place] [address] 00922- 4591 Apr, Low back pain M54.5 and Obesity E66.9 [facility] [id number] [place] [address] 26792- 9142 Mar, Low back pain M54.5 and Obesity E66.9 [facility] [id number] [place] [address] 89365- 7085 Feb, Lumbago 724.2 and Obesity, unspecified 278.00 [facility] [id number] [place] [address] 96177- 1914 Jan, Unspecified episodic mood disorder 296.90 and Anxiety state , unspecified 300.00 [place] [address] 22629- 5710 Jan, Lumbago 724.2 and Obesity, unspecified 278.00 [place] [address] 32916- 3733 Jan, [place] [id number] [place] [address] 87760- 9252 Dec, Lumbago 724.2 and Obesity, unspecified 278.00 [place] [id number] [place] [address] 51563- 1514 Nov, Lumbago 724.2 and Obesity, unspecified 278.00 [place] [address] 79553- 1370 Oct, Lumbago 724.2 and Obesity, unspecified 278.00 [place] [id number] [place] [address] 56105- 9758 September, Otitis externa of left ear 380.10 ; Ear pain 388.70 and Tooth decayed 521.00 [place] [id number] [place] [address] 77344- 8233 September, Lumbago 724.2 ; Obesity, unspecified 278.00 ; Other chronic pain 338.29 and Unspecified symptom associated with female genital organs 625.9 [place] [id number] [place] [address] 57581- 1139 14 Aug, 2014 [place] [address] 62679- 6556 Aug, [facility] [place] [facility] [address] [id number] [place] [address]- 3417 Jul, [facility] [place] [facility] [address] [id number] [place] [address]- 2029 Jul, [facility] [place] [facility] [address] [id number] [place] [address]- 8383 Jul, [facility] [place] [facility] [address] [id number] [place] [address]- 5362 Jul, [facility] [place] [facility] [address] [id number] [place] [address]- 2127 May, [facility] [place] [facility] [address] [id number] [place] [address]- 1834 May, [facility] [place] [facility] [address] [id number] [place] [address]- 1832 May, [facility] [place] [facility] [address] [id number], [place] [address]- 9434 May, [facility] [place] [facility] [address] [id number], [place] [address]- 2416 Apr, [facility] [place] [facility] [address] [id number], [place] [address]- 9165 Apr, [facility] [place] [facility] [address] [id number], [place] [address]- 3061 Mar, [facility] [place] [facility] [address] [id number], [place] [address]- 2819 Mar, [facility] [place] [facility] [address] [id number], [place] [address]- 9233 Feb, [facility] [place] [facility] [address] [id number] 8773 Feb, [facility] [place] [facility] [address] [id number] [place] [address]- 6251 Jan, [facility] [place] [facility] [address] [id number] [place] [address]- 0810 Jan, [facility] [address] [id number] [place] [address]- 3013 Dec, [facility] [place] [facility] [address] [id number] [place] [address]- 5746 Dec, [facility] [place] [facility] [address] [id number] [place] [address]- 0603 Nov, [facility] [place] [facility] [address] [id number] [place] [address]- 7419 Nov, [facility] [place] [facility] [address] [id number] [place] [address]- 3291 Nov, [facility] [place] [facility] [address] [id number] [place] Nov, [facility] [place] [facility] [address] [id number] [place] [address]- 9697 Oct, [facility] [address] [id number] [place] [address]- 0008 Oct, [facility] [place] [facility] [address] [id number] [place] [address]- 3365 Apr, [facility] [address] [id number] [place] [address]- 7694 Apr, [facility] [place] [facility] [address] [id number] [place] [address]- 6796 Nov, [facility] [place] [facility] [address] [id number] [place] [address]- 6996 Nov, [facility] [place] [facility] [address] [id number] [place] [address]- 4966 Jul, [facility] [place] [facility] [address] [id number] [place] [address]- 2546 Jul, [facility] [place] [facility] [address] [id number] [place] [address]- 2293 Jan, [facility] [address] [facility] [id number] [place] [address]- 4984 Jul, IMMUNIZATIONS No Known Immunizations SOCIAL HISTORY Never Assessed REASON FOR VISIT Refill request PLAN OF CARE VITAL SIGNS MEDICATIONS Unknown Medications RESULTS No Results PROCEDURES No Known procedures [...]
--- OUTSIDE RECORDS SUMMARY | 2018-09-05 20:55 | XMS REPORT ---
Author Author ALCIDES SANTILLAN [facility] Address [address] [place] [address] Care Team Providers Care Algebra Tutor Name Role Phone LOBO SANTILLANTA Unavailable PROBLEMS Type Condition ICD9-CM Code DYU42-AV Code Onset Dates Condition Status SNOMED Code Problem Chronic pain syndrome G89.4 Active 541743417 Problem Long-term use of high-risk medication Z79.899 Active 694261454 Problem Low back pain M54.5 Active 486048737 Problem Obesity E66.9 Active [id number] ALLERGIES No Information ENCOUNTERS Encounter Location Date Diagnosis [facility] [id number] [place] [address] 74783- 3615 Dec, Low back pain M54.5 [facility] [id number] [place] [address] 52542- 2470 Nov, [facility] [id number] [place] [address] 51354- 3511 Nov, Low back pain M54.5 [facility] [id number] [place] [address] 16367- 3479 Nov, Long-term use of high-risk medication Z79.899 ; Obesity E66.9 and Low back pain M54.5 [facility] [id number] [place] [address] 42567- 4814 Nov, Obesity E66.9 ; Low back pain M54.5 and Long-term use of high-risk medication Z79.899 [facility] [id number] [place] [address] 90419- 3657 Nov, [facility] [id number] [place] [address] 45769- 3926 Oct, Low back pain M54.5 [facility] [id number] [place] [address] 49120- 7776 September, Low back pain M54.5 and Obesity E66.9 [facility] [id number] [place] [address] 36518- 6156 Aug, Low back pain M54.5 [facility] [id number] [place] [address] 81052- 8256 Jul, Low back pain M54.5 [facility] [address] 14554- 1740 Jul, [facility] [address] 17628- 5939 Jul, Low back pain M54.5 ; Obesity E66.9 and Submandibular lymphadenopathy R59.0 [facility] [address] 65542- 1798 May, Low back pain M54.5 [facility] [id number] [place] [address] 81591- 3687 Apr, Low back pain M54.5 [facility] [id number] [place] [address] 20212- 7011 Mar, Low back pain M54.5 [facility] [id number] [place] [address] 44550- 5855 Feb, Low back pain M54.5 [facility] [id number] [place] [address] 26396- 9137 Feb, Low back pain M54.5 [facility] [id number] [place] [address] 95025- 7860 05 Jan, 2017 Low back pain M54.5 [facility] [id number] [place] [address] 89092- 0526 Dec, Low back pain M54.5 ; Chronic pain syndrome G89.4 ; Anterior cervical adenopathy R59.0 and Overweight E66.3 [facility] [address] [facility] [id number] [address] 8483 Dec, Low back pain M54.5 [facility] [address] [facility] [id number] [place] [address] 6466 Nov, Low back pain M54.5 [facility] [id number] [place] [address] 96442- 8059 Oct, Low back pain M54.5 [facility] [id number] [place] [address] 03593- 8085 September, Low back pain M54.5 ; Chronic pain syndrome G89.4 and Obesity E66.9 [facility] [id number] [place] [address] 95089- 9176 September, Low back pain M54.5 [facility] [id number] [place] [address] 05591- 6897 Aug, Low back pain M54.5 [facility] [id number] [place] [address] 93364- 4782 Jul, Low back pain M54.5 [facility] [id number] [place] [address] 42396- 5381 Jul, Anterior cervical adenopathy R59.0 [facility] [id number] [place] [address] 24598- 4516 Jul, [facility] [address] [facility] [id number] [place] [address] 62965- 2627 Jul, Low back pain M54.5 ; Obesity E66.9 and Anterior cervical adenopathy R59.0 [facility] [id number] [address] 8917 May, [facility] [address] [address]- 6077 Apr, [facility] [id number] [place] [address] 76773- 6033 Mar, Low back pain M54.5 and Obesity E66.9 [facility] [id number] [place] [address] 43595- 7473 Feb, [facility] [id number] [place] [address] 97625- 8591 Jan, [facility] [address] 80106- 1526 Jan, [facility] [id number] [place] [address] 10625- 8674 Dec, Low back pain M54.5 and Obesity E66.9 [facility] [id number] [place] [address] 24481- 6857 Nov, Low back pain M54.5 and Obesity E66.9 [facility] [id number] [place] [address] 65780- 8274 Oct, Low back pain M54.5 and Obesity E66.9 [facility] [id number] [place] [address] 10490- 5241 Oct, Low back pain M54.5 ; Obesity E66.9 and Long-term use of high-risk medication Z79.899 [facility] [id number] [place] [address] 45236- 2628 September, [facility] [id number] [place] [address] 68156- 7219 September, Low back pain M54.5 ; Obesity E66.9 and Otitis externa of left ear H60.92 [facility] [id number] [place] [address] 11319- 1682 Jul, [facility] [id number] [place] [address] 17946- 6295 Jul, [facility] [id number] [place] [address] 74770- 4387 Jul, Low back pain M54.5 and Obesity E66.9 [facility] [id number] [place] [address] 90379- 4361 May, Low back pain M54.5 ; Obesity E66.9 and History of long- term use of multiple prescription drugs Z92.29 [facility] [id number] [place] [address] [id number] Apr, Encounter for dental examination Z01.20 [facility] [id number] [place] [address] [id number] Apr, Encounter for dental examination Z01.20 [facility] [id number] [place] [address] 453875- 1396 Apr, [facility] [id number] [place] [address] 86470- 2581 Apr, Low back pain M54.5 and Obesity E66.9 [facility] [id number] [place] [address] 86245- 2570 Mar, Low back pain M54.5 and Obesity E66.9 [facility] [id number] [place] [address] 98644- 3095 Feb, Lumbago 724.2 and Obesity, unspecified 278.00 [facility] [id number] [place] [address] 88216- 5979 Jan, Unspecified episodic mood disorder 296.90 and Anxiety state , unspecified 300.00 [facility] [id number] [place] [address] 90929- 2393 Jan, Lumbago 724.2 and Obesity, unspecified 278.00 [facility] [id number] [place] [address] 61616- 5584 Jan, [facility] [id number] [place] [address] 30957- 9549 Dec, Lumbago 724.2 and Obesity, unspecified 278.00 [facility] [address] [address]- 1199 Nov, Lumbago 724.2 and Obesity, unspecified 278.00 [facility] [id number] [place] [address] 85950- 1488 Oct, Lumbago 724.2 and Obesity, unspecified 278.00 [facility] [id number] [place] [address] 89911- 1793 September, Otitis externa of left ear 380.10 ; Ear pain 388.70 and Tooth decayed 521.00 [facility] [id number] [place] [address] 60026- 3541 September, Lumbago 724.2 ; Obesity, unspecified 278.00 ; Other chronic pain 338.29 and Unspecified symptom associated with female genital organs 625.9 [facility] [id number] [place] [address] 39305- 4812 Aug, [facility] [id number] [place] [address] 79270- 0736 Aug, [facility] [id number] [place] [address] 88086- 9991 Jul, [facility] [id number] [place] [address] 14309- 3309 Jul, [facility] [id number] [place] [address] 21498- 2065 Jul, [facility] [address] [place] [address] 78565- 5591 Jul, [facility] [id number] [place] [address] 55717- 0025 May, [facility] [id number] [place] [address] 67483- 9923 May, [facility] [id number] [place] [address] 47727- 2546 May, [facility] [place] [facility] [address] [id number] [place] [address]- 0925 May, [facility] [place] [facility] [address] [id number] [place] [address]- 1073 Apr, [facility] [place] [facility] [address] [id number] [place] 4645 Apr, [facility] [place] [facility] [address] [id number] [place] [address]- 5183 Mar, [facility] [place] [facility] [address] [id number] [place] [address]- 8935 Mar, [facility] [place] [facility] [address] [id number] [place] [address]- 5249 Feb, [facility] [place] [facility] [address] [id number] [place] [address]- 2982 Feb, [facility] [place] [facility] [address] [id number] [place] [address]- 2951 Jan, [facility] [place] [facility] [address] [id number] [place] [address]- 2914 Jan, [facility] [place] [facility] [address] [id number] [place] [address]- 3858 Dec, [facility] [place] [facility] [address] [id number] [place] [address]- 1989 Dec, [facility] [place] [facility] [address] [id number] [place] [address]- 2135 Nov, [facility] [place] [facility] [address] [id number] [place] [address]- 5735 Nov, [facility] [place] [facility] [address] [id number] [place] [address]- 5742 Nov, [facility] [place] [facility] [address] [id number] [place] 6263 Nov, [facility] [place] [facility] [id number] [address]- 7106 Oct, [facility] [id number] [address]- 6592 Oct, [facility] [address] [address]- 5426 Apr, [facility] [address] [address]- 1986 Apr, [facility] [address] [address]- 9908 Nov, [facility] [id number] [place] [address] 64333- 6247 Nov, [facility] [address] [address]- 9599 Jul, [facility] [address] [address]- 2239 Jul, [facility] [address] [address]- 3488 Jan, [facility] [address] [address]- 2292 Jul, IMMUNIZATIONS No Known Immunizations SOCIAL HISTORY Never Assessed REASON FOR VISIT Lab (walk-in) PLAN OF CARE VITAL SIGNS MEDICATIONS Unknown Medications RESULTS No Results PROCEDURES Procedure Date Ordered Result Body Site DRUG TEST PRSMV CHEM ANLYZR December 16, 2017 INSTRUCTIONS MEDICATIONS ADMINISTERED No Known Medications MEDICAL [...]
--- OUTSIDE RECORDS SUMMARY | 2018-09-05 20:55 | XMS REPORT ---
Author [facility] Address [address] [place] [address] Care Team Providers Care Licensing Engineer Name Role Phone LOBO SANTILLANTA Unavailable PROBLEMS Type Condition ICD9-CM Code [id number] Code Onset Dates Condition Status SNOMED Code Problem Chronic pain syndrome G89.4 Active 984292125 Problem Long-term use of high-risk medication Z79.899 Active 315010663 Problem Low back pain M54.5 Active 347386887 Problem Obesity E66.9 Active [id number] ALLERGIES No Information ENCOUNTERS Encounter Location Date Diagnosis [place] [id number] [address] Jan, Low back pain M54.5 [facility] [address] 47[address]- [address] Dec, Low back pain M54.5 [facility] [address] [place] [id number] [place] [address] 47480- 0660 Nov, [facility] [address] [place] [id number] [place] [address] 92732- 2515 Nov, Low back pain M54.5 [facility] [address] [address]- 5787 Nov, Long-term use of high-risk medication Z79.899 ; Obesity E66.9 and Low back pain M54.5 [facility] [address] [address]- 3[address] Nov, Obesity E66.9 ; Low back pain M54.5 and Long-term use of high-risk medication Z79.899 [facility] [address] [place] [id number] [place] [address] 48108- 5361 Nov, [facility] [address] [facility] [id number] [place] [address] 43619- 0770 Oct, Low back pain M54.5 [facility] [address] [facility] [id number] [place] [address] 88772- 9851 September, Low back pain M54.5 and Obesity E66.9 [facility] [address] [place] [id number] [place] [address] 71076- 5506 Aug, Low back pain M54.5 [facility] [address] [place] [id number] [place] [address] 29020- 7043 Jul, Low back pain M54.5 [facility] [address] [place] [id number] [place] [address] 91118- 7343 Jul, [facility] [address] [place] [id number] [place] [address] 73079- 9586 Jul, Low back pain M54.5 ; Obesity E66.9 and Submandibular lymphadenopathy R59.0 [facility] [address] [place] [id number] [place] [address] 53330- 5780 May, Low back pain M54.5 [facility] [address] [place] [id number] [place] [address] 64134- 1375 Apr, Low back pain M54.5 [facility] [address] [place] [id number] [place] [address] 67571- 6171 Mar, Low back pain M54.5 [facility] [address] [place] [id number] [place] [address] 82531- 0269 Feb, Low back pain M54.5 [facility] [address] [place] [id number] [place] [address] 49843- 1262 03 Feb, 2017 Low back pain M54.5 [facility] [address] [place] [id number] [place] [address] 71538- 4300 05 Jan, 2017 Low back pain M54.5 [facility] [address] [place] [address] Dec, Low back pain M54.5 ; Chronic pain syndrome G89.4 ; Anterior cervical adenopathy R59.0 and Overweight E66.3 [facility] [address] [place] [id number] [place] [address] 28638- 0372 Dec, Low back pain M54.5 [facility] [address] [place] [id number] [place] [address] 67563- 4874 Nov, Low back pain M54.5 [facility] [address] [place] [id number] [place] [address] 35518- 8220 Oct, Low back pain M54.5 [facility] [address] [place] [id number] [place] [address] 16873- 2087 September, Low back pain M54.5 ; Chronic pain syndrome G89.4 and Obesity E66.9 [facility] [address] [place] [id number] [place] [address] 38537- 8888 September, Low back pain M54.5 [facility] [address] [place] [id number] [place] [address] 37682- 9080 Aug, Low back pain M54.5 [facility] [address] [place] [id number] [place] [address] 00036- 4233 Jul, Low back pain M54.5 [facility] [address] [place] [id number] [place] [address] 71482- 6836 Jul, Anterior cervical adenopathy R59.0 [facility] [address] [place] [id number] [place] [address] 63019- 0132 Jul, [facility] [address] [place] [id number] [place] [address] 99441- 1448 Jul, Low back pain M54.5 ; Obesity E66.9 and Anterior cervical adenopathy R59.0 [facility] [id number] [place] [address] 04644- 7723 May, [facility] [address] [address]- [address]17 14 Apr, 2016 [facility] [address] [place] [id number] [place] [address] 29953- 6511 Mar, Low back pain M54.5 and Obesity E66.9 [facility] [address] [place] [id number] [place] [address] 36611- 9736 Feb, [facility] [address] [place] [id number] [place] [address] 74069- 6649 Jan, [facility] [address] [place] [id number] [place] [address] 21151- 6654 Jan, [facility] [address] [place] [id number] [place] [address] 65081- 9525 Dec, Low back pain M54.5 and Obesity E66.9 [facility] [address] [place] [id number] [place] [address] 00163- 5987 Nov, Low back pain M54.5 and Obesity E66.9 [facility] [address] [place] [id number] [place] [address] 23445- 7683 Oct, Low back pain M54.5 and Obesity E66.9 [facility] [address] [place] [id number] [place] [address] 97959- 7997 Oct, Low back pain M54.5 ; Obesity E66.9 and Long-term use of high-risk medication Z79.899 [facility] [address] [address]- [address]26 September, [facility] [address] [place] [id number] [place] [address] 55531- 4140 September, Low back pain M54.5 ; Obesity E66.9 and Otitis externa of left ear H60.92 [facility] [address] [address]- 1499 Jul, [facility] [address] [place] [id number] [place] [address] 69357- 1227 Jul, [facility] [address] [place] [id number] [place] [address] 07848- 4887 Jul, Low back pain M54.5 and Obesity E66.9 [facility] [address] [place] [id number] [place] [address] 23335- 4681 May, Low back pain M54.5 ; Obesity E66.9 and History of long- term use of multiple prescription drugs Z92.29 [facility] [address] [place] [id number] [place] [address] [id number] Apr, Encounter for dental examination Z01.20 [facility] [address] [id number] Apr, Encounter for dental examination Z01.20 [facility] [address] [place] [id number] [place] [address] 24419- 9696 Apr, [facility] [address] [place] [id number] [place] [address] 42006- 3990 Apr, Low back pain M54.5 and Obesity E66.9 [facility] [address] [place] [id number] [place] [address] 27437- 0248 Mar, Low back pain M54.5 and Obesity E66.9 [facility] [address] [place] [id number] [place] [address] 98604- 6684 Feb, Lumbago 724.2 and Obesity, unspecified 278.00 [facility] [address] [place] [id number] [place] [address] 52023- 1040 Jan, Unspecified episodic mood disorder 296.90 and Anxiety state , unspecified 300.00 [facility] [address] [place] [id number] [place] [address] 65064- 2556 Jan, Lumbago 724.2 and Obesity, unspecified 278.00 [facility] [address] [place] [id number] [place] [address] 04267- 8252 Jan, [facility] [address] [address]- 5572 Dec, Lumbago 724.2 and Obesity, unspecified 278.00 [facility] [address] [place] [id number] [place] [address] 998403- 8762 Nov, Lumbago 724.2 and Obesity, unspecified 278.00 [facility] [address] [place] [id number] [place] [address] 63058- 6359 Oct, Lumbago 724.2 and Obesity, unspecified 278.00 [facility] [address] [place] [id number] [place] [address] 794041- 1447 September, Otitis externa of left ear 380.10 ; Ear pain 388.70 and Tooth decayed 521.00 [facility] [address] [place] [id number] [place] [address] 64246- 5836 September, Lumbago 724.2 ; Obesity, unspecified 278.00 ; Other chronic pain 338.29 and Unspecified symptom associated with female genital organs 625.9 [facility] [address] [address]- 2964 Aug, [facility] [address] [place] [id number] [place] [address] 89703- 6717 Aug, [facility] [address] [address]- 8369 Jul, [facility] [id number] [address]- 4972 Jul, [facility] [address] [address]- 9217 Jul, [facility] [address] [place] [id number] [place] [address] 809020- 6425 Jul, [facility] [address] [address]120 May, [facility] [address] [place] [id number] [place] [address]- 7366 May, [facility] [place] [facility] [address] [id number] [place] [address]- 8382 May, [facility] [place] [facility] [address] [id number] [place] [address]- 3850 May, [facility] [place] [facility] [address] [id number] [place] [address]- 3499 Apr, [facility] [place] [facility] [address] [id number] [place] [address]- 4352 Apr, [facility] [place] [facility] [address] [id number] [place] [address]- 5693 Mar, [facility] [place] [facility] [address] [id number] [place] [address]- 1233 Mar, [facility] [place] [facility] [address] [id number] [place] [address]- 2967 Feb, [facility] [place] [facility] [address] [id number] [place] [address]- 8353 Feb, [facility] [place] [facility] [address] [id number] [place] [address]- 3947 Jan, [facility] [place] [facility] [address] [id number] [place] [address]- 7081 Jan, [facility] [place] [facility] [address] [id number] [place] [address]- 7460 Dec, [facility] [place] [facility] [address] [id number] [place] [address]- 9394 Dec, [facility] [place] [facility] [address] [id number] [place] [address]- 3048 Nov, [facility] [place] [facility] [address] [id number] [place] [address]- 3155 Nov, [facility] [place] [facility] [address] [id number] [place] [address]- 8636 Nov, [facility] [id number] [address]- 2964 Nov, [facility] [address] [address]- 0384 Oct, [facility] [address] [address]- 3038 Oct, [facility] [address] [address]- 3643 Apr, [facility] [address] [address]- 3722 Apr, [facility] [address] [address]- 2603 Nov, [facility] [address] [address]- 6879 Nov, [facility] [address] [address]- 0634 Jul, [facility] [address] [address]- 8289 Jul, [facility] [address] [address]- 6488 Jan, [facility] [id number] [address]- 1422 Jul, IMMUNIZATIONS No Known Immunizations SOCIAL HISTORY Never Assessed REASON FOR VISIT Hydrocodone 01/18 PLAN OF CARE VITAL SIGNS MEDICATIONS Medication Instructions Dosage Frequency Start Date End Date Duration Status Hydrocodone-Acetaminophen 10-325 MG Orally every 8 hours PRN pain- Must last 28 days 1 Tablet Dec, 28 days Active RESULTS No Results PROCEDURES [...]
--- OUTSIDE RECORDS SUMMARY | 2018-09-05 20:55 | XMS REPORT ---
Author Author ALCIDES SANTILLAN [facility] Address [address] [place] [address] Care Team Providers Care Door Tender Name Role Phone LOBO SANTILLANTA Unavailable PROBLEMS Type Condition ICD9-CM Code ZEL58-PN Code Onset Dates Condition Status SNOMED Code Problem Chronic pain syndrome G89.4 Active 307104540 Problem Long-term use of high-risk medication Z79.899 Active 706145214 Problem Low back pain M54.5 Active 394304257 Problem Obesity E66.9 Active [id number] ALLERGIES No Information ENCOUNTERS Encounter Location Date Diagnosis [facility] [id number] [place] [address] 12911- 3103 Dec, Low back pain M54.5 [facility] [id number] [place] [address] 49112- 0179 Nov, [facility] [id number] [place] [address] 73950- 6406 Nov, Low back pain M54.5 [facility] [id number] [place] [address] 11895- 7703 Nov, Long-term use of high-risk medication Z79.899 ; Obesity E66.9 and Low back pain M54.5 [facility] [id number] [place] [address] 32077- 6868 Nov, Obesity E66.9 ; Low back pain M54.5 and Long-term use of high-risk medication Z79.899 [facility] [id number] [place] [address] 96516- 9421 Nov, [facility] [id number] [place] [address] 16573- 4146 Oct, Low back pain M54.5 [facility] [id number] [place] [address] 24110- 4420 September, Low back pain M54.5 and Obesity E66.9 [facility] [id number] [place] [address] 96152- 3456 Aug, Low back pain M54.5 [facility] [id number] [place] [address] 93857- 4956 Jul, Low back pain M54.5 [facility] [address] 87623- 3585 Jul, [facility] [address] 76470- 2959 Jul, Low back pain M54.5 ; Obesity E66.9 and Submandibular lymphadenopathy R59.0 [facility] [address] 13031- 4133 May, Low back pain M54.5 [facility] [id number] [place] [address] 65223- 9733 Apr, Low back pain M54.5 [facility] [id number] [place] [address] 53763- 5138 Mar, Low back pain M54.5 [facility] [id number] [place] [address] 88414- 1862 Feb, Low back pain M54.5 [facility] [id number] [place] [address] 78901- 1776 Feb, Low back pain M54.5 [facility] [id number] [place] [address] 69129- 4624 05 Jan, 2017 Low back pain M54.5 [facility] [id number] [place] [address] 11358- 8989 Dec, Low back pain M54.5 ; Chronic pain syndrome G89.4 ; Anterior cervical adenopathy R59.0 and Overweight E66.3 [facility] [address] [facility] [id number] [address]- 2479 Dec, Low back pain M54.5 [facility] [address] [facility] [id number] [address]- 2386 Nov, Low back pain M54.5 [facility] [id number] [place] [address] 76947- 9644 Oct, Low back pain M54.5 [facility] [id number] [place] [address] 34777- 4126 September, Low back pain M54.5 ; Chronic pain syndrome G89.4 and Obesity E66.9 [facility] [id number] [place] [address] 14905- 1287 September, Low back pain M54.5 [facility] [id number] [place] [address] 03091- 6984 Aug, Low back pain M54.5 [facility] [id number] [place] [address] 13590- 1925 Jul, Low back pain M54.5 [facility] [id number] [place] [address] 06616- 5618 Jul, Anterior cervical adenopathy R59.0 [facility] [id number] [place] [address] 17069- 2671 Jul, [facility] [address] [facility] [id number] [place] [address] 33944- 3117 Jul, Low back pain M54.5 ; Obesity E66.9 and Anterior cervical adenopathy R59.0 [facility] [address] [id number] [address]- 4626 May, [facility] [address] [address]- 9074 Apr, [facility] [id number] [place] [address] 85235- 3956 Mar, Low back pain M54.5 and Obesity E66.9 [facility] [id number] [place] [address] 14999- 2786 Feb, [facility] [id number] [place] [address] 74333- 8296 Jan, [facility] [address] 89283- 8288 Jan, [facility] [id number] [place] [address] 40982- 1183 Dec, Low back pain M54.5 and Obesity E66.9 [facility] [id number] [place] [address] 46007- 0298 Nov, Low back pain M54.5 and Obesity E66.9 [facility] [id number] [place] [address] 03641- 6076 Oct, Low back pain M54.5 and Obesity E66.9 [facility] [id number] [place] [address] 36553- 7119 Oct, Low back pain M54.5 ; Obesity E66.9 and Long-term use of high-risk medication Z79.899 [facility] [id number] [place] [address] 41820- 5106 September, [facility] [id number] [place] [address] 66115- 5380 September, Low back pain M54.5 ; Obesity E66.9 and Otitis externa of left ear H60.92 [facility] [id number] [place] [address] 74655- 2997 Jul, [facility] [id number] [place] [address] 09169- 7634 Jul, [facility] [id number] [place] [address] 45848- 7521 Jul, Low back pain M54.5 and Obesity E66.9 [facility] [id number] [place] [address] 12597- 0709 May, Low back pain M54.5 ; Obesity E66.9 and History of long- term use of multiple prescription drugs Z92.29 [facility] [id number] [place] [address] [id number] Apr, Encounter for dental examination Z01.20 [facility] [id number] [place] [address] [id number] Apr, Encounter for dental examination Z01.20 [facility] [id number] [place] [address] 940536- 9026 Apr, [facility] [id number] [place] [address] 86079- 7241 Apr, Low back pain M54.5 and Obesity E66.9 [facility] [id number] [place] [address] 53204- 7105 Mar, Low back pain M54.5 and Obesity E66.9 [facility] [id number] [place] [address] 22818- 4224 Feb, Lumbago 724.2 and Obesity, unspecified 278.00 [facility] [id number] [place] [address] 38656- 2111 Jan, Unspecified episodic mood disorder 296.90 and Anxiety state , unspecified 300.00 [facility] [id number] [place] [address] 37958- 6216 Jan, Lumbago 724.2 and Obesity, unspecified 278.00 [facility] [id number] [place] [address] 59800- 6860 Jan, [facility] [id number] [place] [address] 46483- 6473 Dec, Lumbago 724.2 and Obesity, unspecified 278.00 [facility] [address] [address]- 8571 Nov, Lumbago 724.2 and Obesity, unspecified 278.00 [facility] [id number] [place] [address] 83455- 5175 Oct, Lumbago 724.2 and Obesity, unspecified 278.00 [facility] [id number] [place] [address] 58424- 8242 September, Otitis externa of left ear 380.10 ; Ear pain 388.70 and Tooth decayed 521.00 [facility] [id number] [place] [address] 69005- 8240 September, Lumbago 724.2 ; Obesity, unspecified 278.00 ; Other chronic pain 338.29 and Unspecified symptom associated with female genital organs 625.9 [facility] [id number] [place] [address] 81422- 1170 Aug, [facility] [id number] [place] [address] 41115- 1118 Aug, [facility] [id number] [place] [address] 04866- 0220 Jul, [facility] [id number] [place] [address] 94949- 8576 Jul, [facility] [id number] [place] [address] 43362- 1575 Jul, [facility] [id number] [place] [address] 15983- 4034 Jul, [facility] [id number] [place] [address] 55041- 0248 May, [facility] [id number] [place] [address] 04676- 3072 May, [facility] [id number] [place] [address] 62305- 2546 May, [facility] [place] [facility] [address] [id number] [place] [address]- 0618 May, [facility] [place] [facility] [address] [id number] [place] [address]- 0246 Apr, [facility] [place] [facility] [address] [id number] [place] 9923 Apr, [facility] [place] [facility] [address] [id number] [place] [address]- 6882 Mar, [facility] [place] [facility] [address] [id number] [place] [address]- 5838 Mar, [facility] [place] [facility] [address] [id number] [place] [address]- 6340 Feb, [facility] [place] [facility] [address] [id number] [place] [address]- 2313 Feb, [facility] [place] [facility] [address] [id number] [place] [address]- 8888 Jan, [facility] [place] [facility] [address] [id number] [place] [address]- 6734 Jan, [facility] [place] [facility] [address] [id number] [place] [address]- 7275 Dec, [facility] [place] [facility] [address] [id number] [place] [address]- 6891 Dec, [facility] [place] [facility] [address] [id number] [place] [address]- 9213 Nov, [facility] [place] [facility] [address] [id number] [place] [address]- 9626 Nov, [facility] [place] [facility] [address] [id number] [place] [address]- 5810 Nov, [facility] [place] [facility] [address] [id number] [place] 0271 Nov, [facility] [place] [facility] [id number] [address]- 5256 Oct, [facility] [id number] [address]- 5256 Oct, [facility] [address] [address]- 6766 Apr, [facility] [address] [address]- 1216 Apr, [facility] [address] [address]- 7846 Nov, [facility] [address] [address]- 6626 Nov, [facility] [address] [address]- 7756 Jul, [facility] [address] [address]- 1776 Jul, [facility] [address] [address]- 2713 Jan, [facility] [address] [address]- 7696 Jul, IMMUNIZATIONS No Known Immunizations SOCIAL HISTORY Never Assessed REASON FOR VISIT PLAN OF CARE VITAL SIGNS MEDICATIONS Medication Instructions Dosage Frequency Start Date End Date Duration Status Hydrocodone-Acetaminophen 10-325 MG Orally every 8 hours PRN pain- Must last 28 days 1 Tablet Nov, Dec, 28 days Active RESULTS No Results [...]
--- OUTSIDE RECORDS SUMMARY | 2018-09-05 20:55 | XMS REPORT ---
Author Author ALCIDES SANTILLAN [facility] Address [address] [place] [address] Care Team Providers Care Inseam Trimmer Name Role Phone LOBO SANTILLANTA Unavailable PROBLEMS Type Condition ICD9-CM Code CRV09-LJ Code Onset Dates Condition Status SNOMED Code Problem Chronic pain syndrome G89.4 Active 029251947 Problem Long-term use of high-risk medication Z79.899 Active 584839274 Problem Low back pain M54.5 Active 970707500 Problem Obesity E66.9 Active 305009003 ALLERGIES No Information ENCOUNTERS Encounter Location Date Diagnosis [facility] [id number] [place] [address] 58429- 1412 Dec, Low back pain M54.5 [facility] [id number] [place] [address] 65423- 0985 Nov, [facility] [id number] [place] [address] 61965- 4372 Nov, Low back pain M54.5 [facility] [id number] [place] [address] 22247- 3249 Nov, Long-term use of high-risk medication Z79.899 ; Obesity E66.9 and Low back pain M54.5 [facility] [id number] [place] [address] 32266- 1425 Nov, Obesity E66.9 ; Low back pain M54.5 and Long-term use of high-risk medication Z79.899 [facility] [id number] [place] [address] 12640- 6086 Nov, [facility] [id number] [place] [address] 50178- 5266 Oct, Low back pain M54.5 [facility] [id number] [place] [address] 90466- 0264 September, Low back pain M54.5 and Obesity E66.9 [facility] [id number] [place] [address] 29679- 1436 Aug, Low back pain M54.5 [facility] [id number] [place] [address] 46277- 0376 Jul, Low back pain M54.5 [facility] [address] 71350- 7046 Jul, [facility] [address] 23328- 8952 Jul, Low back pain M54.5 ; Obesity E66.9 and Submandibular lymphadenopathy R59.0 [facility] [address] 59277- 7949 May, Low back pain M54.5 [facility] [id number] [place] [address] 04051- 9150 Apr, Low back pain M54.5 [facility] [id number] [place] [address] 39560- 7617 Mar, Low back pain M54.5 [facility] [id number] [place] [address] 01988- 2766 Feb, Low back pain M54.5 [facility] [id number] [place] [address] 35264- 1682 Feb, Low back pain M54.5 [facility] [id number] [place] [address] 69620- 7990 05 Jan, 2017 Low back pain M54.5 [facility] [id number] [place] [address] 37913- 9506 Dec, Low back pain M54.5 ; Chronic pain syndrome G89.4 ; Anterior cervical adenopathy R59.0 and Overweight E66.3 [facility] [address] [facility] [id number] [address]277 Dec, Low back pain M54.5 [facility] [address] [facility] [id number] [address]- 4946 Nov, Low back pain M54.5 [facility] [id number] [place] [address] 72397- 3407 Oct, Low back pain M54.5 [facility] [id number] [place] [address] 54357- 9047 September, Low back pain M54.5 ; Chronic pain syndrome G89.4 and Obesity E66.9 [facility] [id number] [place] [address] 61764- 0621 September, Low back pain M54.5 [facility] [id number] [place] [address] 83842- 6415 Aug, Low back pain M54.5 [facility] [id number] [place] [address] 57097- 7372 Jul, Low back pain M54.5 [facility] [id number] [place] [address] 39837- 8640 Jul, Anterior cervical adenopathy R59.0 [facility] [address] [place] [address] 48129- 1289 Jul, [facility] [address] [facility] [id number] [place] [address] 24722- 5511 Jul, Low back pain M54.5 ; Obesity E66.9 and Anterior cervical adenopathy R59.0 [facility] [address] [id number] [address]- 0982 May, [facility] [address] [address]- 0202 Apr, [facility] [id number] [place] [address] 03614- 8774 Mar, Low back pain M54.5 and Obesity E66.9 [facility] [id number] [place] [address] 15016- 9678 Feb, [facility] [id number] [place] [address] 02966- 0596 Jan, [facility] [address] 02937- 5504 Jan, [facility] [id number] [place] [address] 13055- 5344 Dec, Low back pain M54.5 and Obesity E66.9 [facility] [id number] [place] [address] 83469- 9696 Nov, Low back pain M54.5 and Obesity E66.9 [facility] [id number] [place] [address] 66918- 3188 Oct, Low back pain M54.5 and Obesity E66.9 [facility] [id number] [place] [address] 44627- 0723 Oct, Low back pain M54.5 ; Obesity E66.9 and Long-term use of high-risk medication Z79.899 [facility] [id number] [place] [address] 49414- 0870 September, [facility] [id number] [place] [address] 47721- 2892 September, Low back pain M54.5 ; Obesity E66.9 and Otitis externa of left ear H60.92 [facility] [id number] [place] [address] 88870- 6612 Jul, [facility] [id number] [place] [address] 91782- 2889 Jul, [facility] [id number] [place] [address] 17169- 2585 Jul, Low back pain M54.5 and Obesity E66.9 [facility] [id number] [place] [address] 91103- 1839 May, Low back pain M54.5 ; Obesity E66.9 and History of long- term use of multiple prescription drugs Z92.29 [facility] [address] [place] [address] [id number] Apr, Encounter for dental examination Z01.20 [facility] [id number] [place] [address] [id number] Apr, Encounter for dental examination Z01.20 [facility] [id number] [place] [address] 259938- 6336 Apr, [facility] [id number] [place] [address] 76153- 7510 Apr, Low back pain M54.5 and Obesity E66.9 [facility] [id number] [place] [address] 49611- 7458 Mar, Low back pain M54.5 and Obesity E66.9 [facility] [id number] [place] [address] 65413- 9835 Feb, Lumbago 724.2 and Obesity, unspecified 278.00 [facility] [id number] [place] [address] 80685- 2104 Jan, Unspecified episodic mood disorder 296.90 and Anxiety state , unspecified 300.00 [facility] [id number] [place] [address] 32307- 3647 Jan, Lumbago 724.2 and Obesity, unspecified 278.00 [facility] [id number] [place] [address] 19117- 9686 Jan, [facility] [id number] [place] [address] 91646- 4617 Dec, Lumbago 724.2 and Obesity, unspecified 278.00 [facility] [address] [address]- 4678 Nov, Lumbago 724.2 and Obesity, unspecified 278.00 [facility] [id number] [place] [address] 66078- 7668 Oct, Lumbago 724.2 and Obesity, unspecified 278.00 [facility] [id number] [place] [address] 63677- 4972 September, Otitis externa of left ear 380.10 ; Ear pain 388.70 and Tooth decayed 521.00 [facility] [id number] [place] [address] 74116- 8281 September, Lumbago 724.2 ; Obesity, unspecified 278.00 ; Other chronic pain 338.29 and Unspecified symptom associated with female genital organs 625.9 [facility] [id number] [place] [address] 13311- 1057 Aug, [facility] [id number] [place] [address] 28587- 5927 Aug, [facility] [id number] [place] [address] 52605- 6840 Jul, [facility] [id number] [place] [address] 60594- 8339 Jul, [facility] [id number] [place] [address] 51066- 5030 Jul, [facility] [address] [place] [address] 63364- 1136 Jul, [facility] [id number] [place] [address] 66703- 0375 May, [facility] [id number] [place] [address] 15777- 8258 May, [facility] [id number] [place] [address] 96520- 2546 May, [facility] [place] [facility] [address] [id number] [place] [address]- 0233 May, [facility] [place] [facility] [address] [id number] [place] [address]- 7174 Apr, [facility] [place] [facility] [address] [id number] [place]- 3394 Apr, [facility] [place] [facility] [address] [id number] [place] [address]- 6967 Mar, [facility] [place] [facility] [address] [id number] [place] [address]- 3746 Mar, [facility] [place] [facility] [address] [id number] [place] [address]- 3550 Feb, [facility] [place] [facility] [address] [id number] [place] [address]- 0553 Feb, [facility] [place] [facility] [address] [id number] [place] [address]- 6796 Jan, [facility] [place] [facility] [address] [id number] [place] [address]- 4183 Jan, [facility] [place] [facility] [address] [id number] [place] [address]- 6231 Dec, [facility] [place] [facility] [address] [id number] [place] [address]- 7705 Dec, [facility] [place] [facility] [address] [id number] [place] [address]- 6264 Nov, [facility] [place] [facility] [address] [id number] [place] [address]- 6906 Nov, [facility] [place] [facility] [address] [id number] [place] [address]- 0752 Nov, [facility] [place] [facility] [address] [id number] [place] 0116 Nov, [facility] [place] [facility] [id number] [address]- 9676 Oct, [facility] [id number] [address]- 7335 Oct, [facility] [address] [address]- 0646 Apr, [facility] [id number] [address]- 8016 Apr, [facility] [address] [address]- 5979 Nov, [facility] [address] [address]- 6000 Nov, [facility] [address] [address]- 0974 Jul, [facility] [address] [address]- 8514 Jul, [facility] [address] [address]- 3729 Jan, [facility] [id number] [address]- 3627 Jul, IMMUNIZATIONS No Known Immunizations SOCIAL HISTORY Never Assessed REASON FOR VISIT Requests return call PLAN OF CARE VITAL SIGNS MEDICATIONS Unknown [...]
--- OUTSIDE RECORDS SUMMARY | 2018-09-05 20:56 | XMS REPORT ---
Author Author FOSTER PRINCE Organization [facility] Address [address] [place] [address] Care Team Providers Care Chinchilla Farmer Name Role Phone FOSTER PRINCE Unavailable PROBLEMS Type Condition ICD9-CM Code HAV41-WS Code Onset Dates Condition Status SNOMED Code Problem Chronic pain syndrome G89.4 Active 234404553 Problem Long-term use of high-risk medication Z79.899 Active 820932891 Problem Low back pain M54.5 Active 022768995 Problem Obesity E66.9 Active 458944180 ALLERGIES No Information ENCOUNTERS Encounter Location Date Diagnosis [facility] [id number] [place] [address] 71481- 3356 Dec, Low back pain M54.5 [facility] [id number] [place] [address] 69711- 1173 Nov, [facility] [id number] [place] [address] 40325- 8003 Nov, Low back pain M54.5 [facility] [id number] [place] [address] 43782- 9391 Nov, Long-term use of high-risk medication Z79.899 ; Obesity E66.9 and Low back pain M54.5 [facility] [id number] [place] [address] 58840- 4714 Nov, Obesity E66.9 ; Low back pain M54.5 and Long-term use of high-risk medication Z79.899 [facility] [id number] [place] [address] 96765- 0101 Nov, [facility] [id number] [place] [address] 27848- 2258 Oct, Low back pain M54.5 [facility] [id number] [place] [address] 14199- 3318 September, Low back pain M54.5 and Obesity E66.9 [facility] [id number] [place] [address] 95712- 4799 Aug, Low back pain M54.5 [facility] [address] 62984- 5601 Jul, Low back pain M54.5 [facility] [address] 19325- 0441 Jul, [facility] [address] 63499- 4897 Jul, Low back pain M54.5 ; Obesity E66.9 and Submandibular lymphadenopathy R59.0 [facility] [address] 93452- 5312 May, Low back pain M54.5 [facility] [id number] [place] [address] 42638- 8532 Apr, Low back pain M54.5 [facility] [id number] [place] [address] 75581- 2645 Mar, Low back pain M54.5 [facility] [id number] [place] [address] 27684- 9380 Feb, Low back pain M54.5 [facility] [id number] [place] [address] 52817- 1339 Feb, Low back pain M54.5 [facility] [id number] [place] [address] 10245- 2608 05 Jan, 2017 Low back pain M54.5 [facility] [id number] [place] [address] 42733- 2266 Dec, Low back pain M54.5 ; Chronic pain syndrome G89.4 ; Anterior cervical adenopathy R59.0 and Overweight E66.3 [facility] [address] [facility] [id number] [place] [address] 11410- 9731 Dec, Low back pain M54.5 [facility] [address] [facility] [id number] [place] [address] 32265- 6235 Nov, Low back pain M54.5 [facility] [id number] [place] [address] 44998- 9665 Oct, Low back pain M54.5 [facility] [address] [facility] [id number] [place] [address] 16024- 4475 September, Low back pain M54.5 ; Chronic pain syndrome G89.4 and Obesity E66.9 [facility] [id number] [place] [address] 77805- 6505 September, Low back pain M54.5 [facility] [address] [facility] [id number] [place] [address] 79078- 9936 Aug, Low back pain M54.5 [facility] [address] [facility] [id number] [place] [address] 15483- 6118 Jul, Low back pain M54.5 [facility] [address] [facility] [id number] [place] [address] 77237- 7459 Jul, Anterior cervical adenopathy R59.0 [facility] [id number] [place] [address] 20270- 5242 Jul, [facility] [address] [facility] [id number] [place] [address] 64407- 5227 Jul, Low back pain M54.5 ; Obesity E66.9 and Anterior cervical adenopathy R59.0 [facility] [address] [facility] [id number], [place] [address]- 9451 May, [facility] [id number] [place] [address] 77487- 9501 Apr, [facility] [id number] [place] [address]- 3994 Mar, Low back pain M54.5 and Obesity E66.9 [facility] [id number] [place] [address] 48521- 1565 Feb, [facility] [id number] [place] [address] 49945- 8724 Jan, [facility] [id number] [place] [address] 35815- 7200 Jan, [facility] [id number] [place] [address] 59365- 7708 Dec, Low back pain M54.5 and Obesity E66.9 [facility] [id number] [place] [address] 34212- 6415 Nov, Low back pain M54.5 and Obesity E66.9 [facility] [id number] [place] [address] 34015- 1302 Oct, Low back pain M54.5 and Obesity E66.9 [facility] [id number] [place] [address] 33522- 8259 Oct, Low back pain M54.5 ; Obesity E66.9 and Long-term use of high-risk medication Z79.899 [facility] [id number] [place] [address] 49976- 9422 September, [facility] [id number] [place] [address] 29893- 5276 September, Low back pain M54.5 ; Obesity E66.9 and Otitis externa of left ear H60.92 [facility] [id number] [place] [address] 96773- 9069 Jul, [facility] [id number] [place] [address] 63230- 0029 Jul, [facility] [id number] [place] [address] 42049- 4562 03 Jul, 2015 Low back pain M54.5 and Obesity E66.9 [facility] [address] 61603- 4382 May, Low back pain M54.5 ; Obesity E66.9 and History of long- term use of multiple prescription drugs Z92.29 [facility] [id number] [place] [address] [id number] Apr, Encounter for dental examination Z01.20 [facility] [id number] [place] [address] [id number] Apr, Encounter for dental examination Z01.20 [facility] [address] 25854- 1776 Apr, [facility] [id number] [place] [address] 70862- 6659 Apr, Low back pain M54.5 and Obesity E66.9 [facility] [id number] [place] [address] 11380- 5820 Mar, Low back pain M54.5 and Obesity E66.9 [facility] [id number] [place] [address] 58973- 0907 Feb, Lumbago 724.2 and Obesity, unspecified 278.00 [facility] [id number] [place] [address] 97801- 3229 Jan, Unspecified episodic mood disorder 296.90 and Anxiety state , unspecified 300.00 [facility] [id number] [place] [address] 04398- 9497 Jan, Lumbago 724.2 and Obesity, unspecified 278.00 [facility] [id number] [place] [address] 60609- 7940 Jan, [facility] [id number] [place] [address] 88393- 2272 Dec, Lumbago 724.2 and Obesity, unspecified 278.00 [facility] [address] [address]- 9274 Nov, Lumbago 724.2 and Obesity, unspecified 278.00 [facility] [address]- 8404 Oct, Lumbago 724.2 and Obesity, unspecified 278.00 [facility] [id number] [place] [address] 35742- 8820 September, Otitis externa of left ear 380.10 ; Ear pain 388.70 and Tooth decayed 521.00 [facility] [id number] [place] [address] 946206- 2616 September, Lumbago 724.2 ; Obesity, unspecified 278.00 ; Other chronic pain 338.29 and Unspecified symptom associated with female genital organs 625.9 [facility] [id number] [place] [address] 43530- 1683 Aug, [facility] [address] [address]- 2428 Aug, [facility] [id number] [place] [address] 05201- 6811 Jul, [facility] [address] [address]- 9022 Jul, [facility] [id number] [address]- 7313 Jul, [facility] [id number] [id number]- 3701 Jul, [facility] [id number] [place] [address] 136299- 2611 May, [facility] [id number] 1321 May, [facility] [id number] [place] [address] [place] [address]- 1183 May, [facility] [place] [facility] [address] [id number] [place] [address]- 2650 May, [facility] [place] [facility] [address] [id number] [place] [address]- 1298 Apr, [facility] [place] [facility] [address] [id number] [place] [address]- 8389 Apr, [facility] [place] [facility] [address] [id number] [place] [address]- 5588 Mar, [facility] [place] [facility] [address] [id number] [place] [address]- 3093 Mar, [facility] [place] [facility] [address] [id number] [place] [address]- 8217 Feb, [facility] [place] [facility] [address] [id number] [place] [address]- 8457 Feb, [facility] [place] [facility] [address] [id number] [place] [address]- 2449 Jan, [facility] [place] [facility] [address] [id number] [place] [address]- 9433 Jan, [facility] [place] [facility] [address] [id number] [place] [address]- 2854 Dec, [facility] [place] [facility] [address] [id number] [place] [address]- 0003 Dec, [facility] [place] [facility] [address] [id number] [place] [address]- 6069 Nov, [facility] [place] [facility] [address] [id number] [place] [address]- 8657 Nov, [facility] [place] [facility] [address] [id number] [place] [address]- 9696 Nov, [facility] [place] [facility] [address] [id number] [place] 8214 Nov, [facility] [place] [facility] [id number], [place] [address]- 1790 Oct, [facility] [id number] [address]- 4855 Oct, [facility] [address] [place] [address]- 5436 Apr, [facility] [address], [place] [address]- 2964 Apr, [facility] [address], [place] [address]- 6282 Nov, [facility] [address] [place] [address]- 7814 Nov, [facility] [address], [place] [address]- 2221 Jul, [facility] [address] [place] [address]- 6604 Jul, [facility] [id number] [address]- 2327 Jan, [facility] [address], [place] [address]- 5051 Jul, IMMUNIZATIONS No Known Immunizations SOCIAL HISTORY Never Assessed REASON FOR VISIT Controlled Med Refill PLAN OF CARE VITAL SIGNS MEDICATIONS Medication Instructions Dosage Frequency Start Date End Date Duration Status Hydrocodone-Acetaminophen 10-325 MG Orally every 8 hours PRN pain- Must last 28 days 1 Tablet Oct, 28 days Active RESULTS No Results PROCEDURES [...]
--- OUTSIDE RECORDS SUMMARY | 2018-09-05 20:56 | XMS REPORT ---
Author Author ALCIDES SANTILLAN [facility] Address [address] [place] [address] Care Team Providers Care Resident Hall Director Name Role Phone LOBO SANTILLANTA Unavailable PROBLEMS Type Condition ICD9-CM Code [id number] Code Onset Dates Condition Status SNOMED Code Problem Chronic pain syndrome G89.4 Active 581908418 Problem Long-term use of high-risk medication Z79.899 Active 928961089 Problem Low back pain M54.5 Active 176257353 Problem Obesity E66.9 Active 897375604 ALLERGIES No Known Allergies ENCOUNTERS Encounter Location Date Diagnosis [facility] [id number] [place] [address] 27940- 7734 Dec, Low back pain M54.5 [facility] [id number] [place] [address] 41409- 4098 Nov, [facility] [id number] [place] [address] 01018- 1856 Nov, Low back pain M54.5 [facility] [id number] [place] [address] 12654- 6869 Nov, Long-term use of high-risk medication Z79.899 ; Obesity E66.9 and Low back pain M54.5 [facility] [id number] [place] [address] 20044- 6961 Nov, Obesity E66.9 ; Low back pain M54.5 and Long-term use of high-risk medication Z79.899 [facility] [id number] [place] [address] 10227- 2821 Nov, [facility] [id number] [place] [address] 34299- 1481 Oct, Low back pain M54.5 [facility] [id number] [place] [address] 28476- 7907 September, Low back pain M54.5 and Obesity E66.9 [facility] [id number] [place] [address] 70627- 6066 Aug, Low back pain M54.5 [facility] [id number] [place] [address] 63500- 5436 Jul, Low back pain M54.5 [facility] [id number] [place] [address] 46362- 0979 Jul, [facility] [id number] [place] [address] 05455- 2223 Jul, Low back pain M54.5 ; Obesity E66.9 and Submandibular lymphadenopathy R59.0 [facility] [id number] [place] [address] 46540- 5235 May, Low back pain M54.5 [facility] [id number] [place] [address] 87464- 5289 Apr, Low back pain M54.5 [facility] [id number] [place] [address] 28610- 9258 Mar, Low back pain M54.5 [facility] [id number] [place] [address] 74539- 7695 Feb, Low back pain M54.5 [facility] [id number] [place] [address] 45737- 3996 Feb, Low back pain M54.5 [facility] [id number] [place] [address] 85530- 0891 05 Jan, 2017 Low back pain M54.5 [facility] [id number] [place] [address] 75505- 6116 Dec, Low back pain M54.5 ; Chronic pain syndrome G89.4 ; Anterior cervical adenopathy R59.0 and Overweight E66.3 [facility] [address] [facility] [id number] [address] 4296 Dec, Low back pain M54.5 [facility] [address] [facility] [id number], [place] [address] 7616 Nov, Low back pain M54.5 [facility] [id number] [place] [address] 79724- 9809 Oct, Low back pain M54.5 [facility] [address] [facility] [id number] [place] [address] 52090- 3385 September, Low back pain M54.5 ; Chronic pain syndrome G89.4 and Obesity E66.9 [facility] [address] [id number] [address] 8951 September, Low back pain M54.5 [facility] [id number] [place] [address] 98625- 5999 Aug, Low back pain M54.5 [facility] [id number] [place] [address] 52124- 1275 Jul, Low back pain M54.5 [facility] [id number] [place] [address] 57684- 4925 Jul, Anterior cervical adenopathy R59.0 [facility] [id number] [place] [address] 94964- 5717 Jul, [facility] [address] [facility] [id number], [place] [address] 1323 Jul, Low back pain M54.5 ; Obesity E66.9 and Anterior cervical adenopathy R59.0 [facility] [address] [facility] [id number], [place] [address] 2712 May, [facility] [address] [id number] [address]- 5644 Apr, [facility] [id number] [place] [address] 96702- 6344 Mar, Low back pain M54.5 and Obesity E66.9 [facility] [id number] [place] [address] 83108- 3440 Feb, [facility] [id number] [place] [address] 54048- 4034 Jan, [facility] [address] 17005- 0643 Jan, [facility] [id number] [place] [address] 23723- 4734 Dec, Low back pain M54.5 and Obesity E66.9 [facility] [id number] [place] [address] 83906- 2894 Nov, Low back pain M54.5 and Obesity E66.9 [facility] [id number] [place] [address] 90013- 7957 Oct, Low back pain M54.5 and Obesity E66.9 [facility] [id number] [place] [address] 91206- 3642 Oct, Low back pain M54.5 ; Obesity E66.9 and Long-term use of high-risk medication Z79.899 [facility] [id number] [place] [address] 85105- 5995 September, [facility] [id number] [place] [address] 70900- 2464 September, Low back pain M54.5 ; Obesity E66.9 and Otitis externa of left ear H60.92 [facility] [id number] [place] [address] 55639- 1228 Jul, [facility] [id number] [place] [address] 93102- 6740 Jul, [facility] [id number] [place] [address] 34108- 0049 Jul, Low back pain M54.5 and Obesity E66.9 [facility] [id number] [place] [address] 45093- 6314 May, Low back pain M54.5 ; Obesity E66.9 and History of long- term use of multiple prescription drugs Z92.29 [facility] [id number] [place] [address] [id number] Apr, Encounter for dental examination Z01.20 [facility] [id number] [place] [address] [id number] Apr, Encounter for dental examination Z01.20 [facility] [id number] [place] [address] 474598- 1396 Apr, [facility] [id number] [place] [address] 97837- 5660 Apr, Low back pain M54.5 and Obesity E66.9 [facility] [id number] [place] [address] 00729- 3870 Mar, Low back pain M54.5 and Obesity E66.9 [facility] [id number] [place] [address] 59037- 1512 Feb, Lumbago 724.2 and Obesity, unspecified 278.00 [facility] [id number] [place] [address] 12600- 9026 Jan, Unspecified episodic mood disorder 296.90 and Anxiety state , unspecified 300.00 [facility] [id number] [place] [address] 25645- 0408 Jan, Lumbago 724.2 and Obesity, unspecified 278.00 [facility] [id number] [place] [address] 12662- 0076 Jan, [facility] [id number] [place] [address] 67280- 7457 Dec, Lumbago 724.2 and Obesity, unspecified 278.00 [facility] [address] [address]- 1459 Nov, Lumbago 724.2 and Obesity, unspecified 278.00 [facility] [id number] [place] [address] 60770- 4675 Oct, Lumbago 724.2 and Obesity, unspecified 278.00 [facility] [id number] [place] [address] 62521- 0927 September, Otitis externa of left ear 380.10 ; Ear pain 388.70 and Tooth decayed 521.00 [facility] [id number] [place] [address] 78917- 8465 September, Lumbago 724.2 ; Obesity, unspecified 278.00 ; Other chronic pain 338.29 and Unspecified symptom associated with female genital organs 625.9 [facility] [id number] [place] [address] 67522- 5010 Aug, [facility] [id number] [place] [address] 05713- 3140 Aug, [facility] [id number] [place] [address] 61811- 0544 Jul, [facility] [id number] [place] [address] 64667- 4331 Jul, [facility] [id number] [place] [address] 41716- 8138 Jul, [facility] [address] [address]- 8720 Jul, [facility] [id number] [place] [address] 33676- 9526 May, [facility] [id number] [address]- 5261 May, [facility] [id number] [place] [address] 90943- 8180 May, [facility] [place] [facility] [address] [id number] [place] [address]- 6427 May, [facility] [place] [facility] [address] [id number] [place] 9652 Apr, [facility] [place] [facility] [address] [id number] [place] 2702 Apr, [facility] [place] [facility] [address] [id number] [place] [address]- 9578 Mar, [facility] [place] [facility] [address] [id number] [place] [address]- 7252 Mar, [facility] [place] [facility] [address] [id number] [place] [address]- 5413 Feb, [facility] [place] [facility] [address] [id number] [place] [address]- 7790 Feb, [facility] [place] [facility] [address] [id number] [place] [address]- 2901 Jan, [facility] [place] [facility] [address] [id number] [place] [address]- 9451 Jan, [facility] [place] [facility] [address] [id number] [place] [address]- 3956 Dec, [facility] [place] [facility] [address] [id number] [place] [address]- 4495 Dec, [facility] [place] [facility] [address] [id number] [place] [address]- 8421 Nov, [facility] [place] [facility] [address] [id number] [place] [address]- 4710 Nov, [facility] [place] [facility] [address] [id number] [place] [address]- 9583 Nov, [facility] [place] [facility] [address] [id number] [place] [address]- 7745 Nov, [facility] [place] [facility] [id number] [address]- 2226 Oct, [facility] [id number] [address]- 1865 Oct, [facility] [address] [address]- 8326 Apr, [facility] [address] [address]- 5026 Apr, [facility] [address] [address]- 6456 Nov, [facility] [id number] [place] [address] 01291- 6934 Nov, [facility] [address] [address]- 2665 Jul, [facility] [address] [address]- 4843 Jul, [facility] [id number] [address]- 7943 Jan, [facility] [address] [address]- 1908 Jul, IMMUNIZATIONS No Known Immunizations SOCIAL HISTORY Never Assessed REASON FOR VISIT Transition of Care-mpolshakMA, Pain management for knee and back and weight management. PLAN OF CARE Activity Details Follow Up 3 months or as indicated by lab Reason:pain/weight loss VITAL SIGNS Height 66 in 2017-12-10 Weight 215 lbs 2017-12-10 Temperature 97.7 degrees Fahrenheit 2017-12-10 Heart Rate 78 bpm 2017-12-10 Respiratory Rate 18 2017-12-10 BMI 34.70 kg/m2 2017-12-10 Blood pressure systolic 115 mmHg 2017-12-10 Blood pressure diastolic 70 mmHg 2017-12-10 MEDICATIONS Medication Instructions Dosage Frequency Start Date End Date Duration Status Hydrocodone-Acetaminophen 10-325 MG Orally every 8 hours PRN pain- Must last 28 days 1 Tablet 14 Oct, 2017 28 days Active Phentermine HCl 37.5 MG Orally Once a day 1 capsule 24h Nov, Dec, 28 days Active RESULTS No [...]
--- OUTSIDE RECORDS SUMMARY | 2018-09-05 20:56 | XMS REPORT ---
Author Author FOSTER PRINCE Organization [facility] Address [address] [place] [address] Care Team Providers Care De Icer Finisher Name Role Phone FOSTER PRINCE Unavailable PROBLEMS Type Condition ICD9-CM Code [id number] Code Onset Dates Condition Status SNOMED Code Problem Chronic pain syndrome G89.4 Active 873925264 Problem Long-term use of high-risk medication Z79.899 Active 448654535 Problem Low back pain M54.5 Active 389574869 Problem Obesity E66.9 Active [id number] ALLERGIES No Information ENCOUNTERS Encounter Location Date Diagnosis [facility] [id number] [place] [address] 65056- 5373 Dec, Low back pain M54.5 [facility] [id number] [place] [address] 82433- 9873 Nov, [facility] [id number] [place] [address] 93102- 6880 Nov, Low back pain M54.5 [facility] [id number] [place] [address] 36452- 3373 Nov, Long-term use of high-risk medication Z79.899 ; Obesity E66.9 and Low back pain M54.5 [facility] [id number] [place] [address] 20031- 5961 Nov, Obesity E66.9 ; Low back pain M54.5 and Long-term use of high-risk medication Z79.899 [facility] [id number] [place] [address] 24599- 1477 Nov, [facility] [id number] [place] [address] 19918- 3061 Oct, Low back pain M54.5 [facility] [id number] [place] [address] 34655- 8778 September, Low back pain M54.5 and Obesity E66.9 [facility] [id number] [place] [address] 32814- 6959 Aug, Low back pain M54.5 [facility] [address] 62599- 6504 Jul, Low back pain M54.5 [facility] [address] 07534- 2781 Jul, [facility] [address] 73234- 8575 Jul, Low back pain M54.5 ; Obesity E66.9 and Submandibular lymphadenopathy R59.0 [facility] [address] 63420- 6263 May, Low back pain M54.5 [facility] [id number] [place] [address] 00465- 8961 Apr, Low back pain M54.5 [facility] [id number] [place] [address] 55698- 3815 Mar, Low back pain M54.5 [facility] [id number] [place] [address] 20034- 2691 Feb, Low back pain M54.5 [facility] [id number] [place] [address] 11099- 5404 Feb, Low back pain M54.5 [facility] [id number] [place] [address] 33110- 9139 05 Jan, 2017 Low back pain M54.5 [facility] [id number] [place] [address] 71704- 6800 Dec, Low back pain M54.5 ; Chronic pain syndrome G89.4 ; Anterior cervical adenopathy R59.0 and Overweight E66.3 [facility] [address] [facility] [id number] [place] [address] 00401- 9596 Dec, Low back pain M54.5 [facility] [address] [facility] [id number] [place] [address] 69188- 3374 Nov, Low back pain M54.5 [facility] [id number] [place] [address] 67501- 3451 Oct, Low back pain M54.5 [facility] [address] [facility] [id number] [place] [address] 85862- 2065 September, Low back pain M54.5 ; Chronic pain syndrome G89.4 and Obesity E66.9 [facility] [id number] [place] [address] 91798- 5396 September, Low back pain M54.5 [facility] [address] [facility] [id number] [place] [address] 52042- 8317 Aug, Low back pain M54.5 [facility] [address] [facility] [id number] [place] [address] 00209- 9149 Jul, Low back pain M54.5 [facility] [address] [facility] [id number] [place] [address] 10553- 1700 Jul, Anterior cervical adenopathy R59.0 [facility] [id number] [place] [address] 71106- 8655 Jul, [facility] [address] [facility] [id number] [place] [address] 42204- 1933 Jul, Low back pain M54.5 ; Obesity E66.9 and Anterior cervical adenopathy R59.0 [facility] [address] [facility] [id number] [address] 3699 May, [facility] [id number] [place] [address] 75707- 0847 Apr, [facility] [address] [address] 4774 Mar, Low back pain M54.5 and Obesity E66.9 [facility] [id number] [place] [address] 78121- 4125 Feb, [facility] [id number] [place] [address] 36240- 8695 Jan, [facility] [id number] [place] [address] 51398- 3085 Jan, [facility] [id number] [place] [address] 49779- 8788 Dec, Low back pain M54.5 and Obesity E66.9 [facility] [id number] [place] [address] 89810- 6008 Nov, Low back pain M54.5 and Obesity E66.9 [facility] [id number] [place] [address] 00675- 6297 Oct, Low back pain M54.5 and Obesity E66.9 [facility] [id number] [place] [address] 95165- 7365 Oct, Low back pain M54.5 ; Obesity E66.9 and Long-term use of high-risk medication Z79.899 [facility] [id number] [place] [address] 95459- 8459 September, [facility] [id number] [place] [address] 61743- 2371 September, Low back pain M54.5 ; Obesity E66.9 and Otitis externa of left ear H60.92 [facility] [id number] [place] [address] 05345- 3224 Jul, [facility] [id number] [place] [address] 29039- 5952 Jul, [facility] [id number] [place] [address] 34517- 8633 03 Jul, 2015 Low back pain M54.5 and Obesity E66.9 [facility] [address] 39307- 0123 May, Low back pain M54.5 ; Obesity E66.9 and History of long- term use of multiple prescription drugs Z92.29 [facility] [id number] [place] [address] [id number] Apr, Encounter for dental examination Z01.20 [facility] [id number] [place] [address] [id number] Apr, Encounter for dental examination Z01.20 [facility] [address] 30437- 5106 Apr, [facility] [id number] [place] [address] 17950- 3288 Apr, Low back pain M54.5 and Obesity E66.9 [facility] [id number] [place] [address] 15517- 0296 Mar, Low back pain M54.5 and Obesity E66.9 [facility] [id number] [place] [address] 60625- 0741 Feb, Lumbago 724.2 and Obesity, unspecified 278.00 [facility] [id number] [place] [address] 24631- 8664 Jan, Unspecified episodic mood disorder 296.90 and Anxiety state , unspecified 300.00 [facility] [id number] [place] [address] 57449- 5589 Jan, Lumbago 724.2 and Obesity, unspecified 278.00 [facility] [id number] [place] [address] 59578- 6168 Jan, [facility] [id number] [place] [address] 33174- 9897 Dec, Lumbago 724.2 and Obesity, unspecified 278.00 [facility] [address] [address]- 4517 Nov, Lumbago 724.2 and Obesity, unspecified 278.00 [facility] [address] 0580 Oct, Lumbago 724.2 and Obesity, unspecified 278.00 [facility] [id number] [place] [address] 56786- 8089 September, Otitis externa of left ear 380.10 ; Ear pain 388.70 and Tooth decayed 521.00 [facility] [id number] [place] [address] 917259- 3077 September, Lumbago 724.2 ; Obesity, unspecified 278.00 ; Other chronic pain 338.29 and Unspecified symptom associated with female genital organs 625.9 [facility] [id number] [place] [address] 18973- 3796 Aug, [facility] [address] [address]- 3877 Aug, [facility] [id number] [place] [address] 95073- 1872 Jul, [facility] [address] [address]- 1357 Jul, [facility] [id number] [address]- 6948 Jul, [facility] [address] 9961 Jul, [facility] [id number] [place] [address] 322841- 8472 May, [facility] [address] 7964 May, [facility] [id number] [place] [address] [place] [address]- 0034 May, [facility] [place] [facility] [address] [id number] [place] [address]- 5120 May, [facility] [place] [facility] [address] [id number] [place] [address]- 8633 Apr, [facility] [place] [facility] [address] [id number] [place] [address]- 5981 Apr, [facility] [place] [facility] [address] [id number] [place] [address]- 8520 Mar, [facility] [place] [facility] [address] [id number] [place] [address]- 7209 Mar, [facility] [place] [facility] [address] [id number] [place] [address]- 8446 Feb, [facility] [place] [facility] [address] [id number] [place] [address]- 2763 Feb, [facility] [place] [facility] [address] [id number] [place] [address]- 6754 Jan, [facility] [place] [facility] [address] [id number] [place] [address]- 1245 Jan, [facility] [place] [facility] [address] [id number] [place] [address]- 2528 Dec, [facility] [place] [facility] [address] [id number] [place] [address]- 3740 Dec, [facility] [place] [facility] [address] [id number] [place] [address]- 4180 Nov, [facility] [place] [facility] [address] [id number] [place] [address]- 7634 Nov, [facility] [place] [facility] [address] [id number] [place] [address]- 5695 Nov, [facility] [place] [facility] [address] [id number] [place] 5103 Nov, [facility] [place] [facility] [id number] [address]- 1726 Oct, [facility] [id number] [address]- 4327 Oct, [facility] [address] [place] [address]- 8346 Apr, [facility] [address] [place] [address]- 1169 Apr, [facility] [address] [place] [address]- 8269 Nov, [facility] [address] [place] [address]- 1476 Nov, [facility] [address] [place] [address]- 1986 Jul, [facility] [address] [place] [address]- 0746 Jul, [facility] [id number] [address]- 0754 Jan, [facility] [address], [place] [address]- 7815 Jul, IMMUNIZATIONS No Known Immunizations SOCIAL HISTORY Never Assessed REASON FOR VISIT Medication refill request PLAN OF CARE VITAL SIGNS MEDICATIONS [...]
--- OUTSIDE RECORDS SUMMARY | 2018-09-05 20:57 | XMS REPORT ---
Author Author FOSTER PRINCE [facility] Address [address] [place] [address] Care Team Providers Care Trouble Shooter Name Role Phone FOSTER PRINCE Unavailable PROBLEMS Type Condition ICD9-CM Code [id number] Code Onset Dates Condition Status SNOMED Code Problem Chronic pain syndrome G89.4 Active 529049223 Problem Long-term use of high-risk medication Z79.899 Active 527655322 Problem Low back pain M54.5 Active 014766909 Problem Obesity E66.9 Active [id number] ALLERGIES No Information ENCOUNTERS Encounter Location Date Diagnosis [place] [id number] [place] [address] 82920- 5993 Nov, [facility] [id number] [place] [address] 33491- 1233 Nov, Low back pain M54.5 [place] [id number] [place] [address] 72208- 7570 Nov, Long-term use of high-risk medication Z79.899 ; Obesity E66.9 and Low back pain M54.5 [place] [id number] [place] [address] 25144- 2567 Nov, Obesity E66.9 ; Low back pain M54.5 and Long-term use of high-risk medication Z79.899 [place] [id number] [place] [address] 36802- 3741 Nov, [place] [id number] [place] [address] 58947- 1227 Oct, Low back pain M54.5 [place] [id number] [place] [address] 07518- 8977 September, Low back pain M54.5 and Obesity E66.9 [facility] [id number] [place] [address] 56968- 6693 Aug, Low back pain M54.5 [facility] [id number] [place] [address] 69814- 4757 Jul, Low back pain M54.5 [facility] [address] 19067- 0416 Jul, [facility] [address] 38225- 1193 Jul, Low back pain M54.5 ; Obesity E66.9 and Submandibular lymphadenopathy R59.0 [facility] [id number] [place] [address] 34182- 7792 May, Low back pain M54.5 [facility] [address] 28826- 7076 Apr, Low back pain M54.5 [facility] [address] 55395- 8016 Mar, Low back pain M54.5 [facility] [id number] [place] [address] 49708- 8296 Feb, Low back pain M54.5 [facility] [address] 38647- 7082 Feb, Low back pain M54.5 [facility] [id number] [place] [address] 87539- 1336 Jan, Low back pain M54.5 [facility] [address] 12764- 0364 Dec, Low back pain M54.5 ; Chronic pain syndrome G89.4 ; Anterior cervical adenopathy R59.0 and Overweight E66.3 [facility] [address] 46707- 6425 Dec, Low back pain M54.5 [facility] [id number] [place] [address] 76487- 5396 Nov, Low back pain M54.5 [facility] [id number] [place] [address] 42898- 2091 Oct, Low back pain M54.5 [facility] [id number] [place] [address] 72873- 8565 September, Low back pain M54.5 ; Chronic pain syndrome G89.4 and Obesity E66.9 [facility] [id number] [place] [address] 06269- 0086 September, Low back pain M54.5 [facility] [id number] [place] [address] 60235- 4042 Aug, Low back pain M54.5 [facility] [id number] [place] [address] 30482- 8073 Jul, Low back pain M54.5 [facility] [id number] [place] [address] 75299- 6826 Jul, Anterior cervical adenopathy R59.0 [facility] [id number] [place] [address] 66283- 6101 Jul, [facility] [id number] [place] [address] 24156- 4355 Jul, Low back pain M54.5 ; Obesity E66.9 and Anterior cervical adenopathy R59.0 [facility] [id number] [place] [address] 05145- 1030 May, [facility] [id number] [place] [address] 69842- 7208 Apr, [facility] [id number] [place] [address] 35562- 1989 Mar, Low back pain M54.5 and Obesity E66.9 [facility] [id number] [address]- 8963 Feb, [facility] [id number] [place] [address] 19439- 1860 Jan, [facility] [id number] [place] [address] 78872- 0538 Jan, [facility] [address] 71723- 5156 Dec, Low back pain M54.5 and Obesity E66.9 [facility] [id number] [place] [address] 89499- 4651 Nov, Low back pain M54.5 and Obesity E66.9 [facility] [id number] [place] [address] 59345- 2084 Oct, Low back pain M54.5 and Obesity E66.9 [facility] [id number] [place] [address] 31852- 4936 Oct, Low back pain M54.5 ; Obesity E66.9 and Long-term use of high-risk medication Z79.899 [facility] [id number] [place] [address] 93818- 5488 September, [facility] [id number] [place] [address] 42268- 1468 September, Low back pain M54.5 ; Obesity E66.9 and Otitis externa of left ear H60.92 [facility] [id number] [place] [address] 63757- 7170 Jul, [facility] [id number] [place] [address] 06286- 3783 Jul, [facility] [id number] [place] [address] 96652- 9991 Jul, Low back pain M54.5 and Obesity E66.9 [facility] [address] [address]- 4414 May, Low back pain M54.5 ; Obesity E66.9 and History of long- term use of multiple prescription drugs Z92.29 [facility] [address] [id number] Apr, Encounter for dental examination Z01.20 [facility] [address] [id number] Apr, Encounter for dental examination Z01.20 [facility] [id number] [place] [address] 475210- 5648 Apr, [facility] [id number] [place] [address] 40777- 1360 Apr, Low back pain M54.5 and Obesity E66.9 [facility] [id number] [place] [address] 90429- 8994 Mar, Low back pain M54.5 and Obesity E66.9 [facility] [id number] [place] [address] 20065- 0967 Feb, Lumbago 724.2 and Obesity, unspecified 278.00 [facility] [id number] [place] [address] 30709- 9413 Jan, Unspecified episodic mood disorder 296.90 and Anxiety state , unspecified 300.00 [facility] [id number] [place] [address] 84438- 8193 Jan, Lumbago 724.2 and Obesity, unspecified 278.00 [facility] [id number] [place] [address] 88047- 9371 Jan, [facility] [id number] [place] [address] 12615- 7559 Dec, Lumbago 724.2 and Obesity, unspecified 278.00 [facility] [id number] [place] [address] 10968- 7678 Nov, Lumbago 724.2 and Obesity, unspecified 278.00 [facility] [id number] [place] [address] 99643- 1705 Oct, Lumbago 724.2 and Obesity, unspecified 278.00 [facility] [id number] [place] [address] 37941- 5165 September, Otitis externa of left ear 380.10 ; Ear pain 388.70 and Tooth decayed 521.00 [facility] [id number] [place] [address] 92288- 1845 September, Lumbago 724.2 ; Obesity, unspecified 278.00 ; Other chronic pain 338.29 and Unspecified symptom associated with female genital organs 625.9 [facility] [id number] [place] [address] 57340- 0732 Aug, [facility] [id number] [place] [address] 64850- 8045 Aug, [facility] [id number] [place] [address] 32002- 8566 Jul, [facility] [id number] [place] [address] 61242- 2049 Jul, [facility] [address] [address]- 5967 Jul, [facility] [id number] [place] [address] 01886- 3959 Jul, [facility] [address] [address]- 8272 May, [facility] [id number] [place] [address] 96666- 9185 May, [facility] [address]- 1451 May, [facility] [id number] [place] [address] 53326- 2718 May, [facility] [place] [facility] [address] [id number] [place] 8835 Apr, [facility] [place] [facility] [address] [id number] [place] [address]- 4744 Apr, [facility] [place] [facility] [address] [id number] [place] [address]- 1590 Mar, [facility] [place] [facility] [address] [id number] [place] [address]- 6276 Mar, [facility] [place] [facility] [address] [id number] [place] [address]- 9939 Feb, [facility] [place] [facility] [address] [id number] [place] [address]- 4368 Feb, [facility] [place] [facility] [address] [id number] [place] [address]- 7780 Jan, [facility] [place] [facility] [address] [id number] [place] [address]- 1405 Jan, [facility] [place] [facility] [address] [id number] [place] [address]- 4097 Dec, [facility] [place] [facility] [address] [id number] [place] [address]- 4861 Dec, [facility] [place] [facility] [address] [id number] [place] [address]- 9480 Nov, [facility] [place] [facility] [address] [id number] [address]- 5416 Nov, [facility] [place] [facility] [address] [id number] [place] [address]- 2333 Nov, [facility] [place] [facility] [address] [id number] [place] [address]- 5379 Nov, [facility] [place] [facility] [address] [id number] [place] [address]- 2671 Oct, [facility] [place] [facility] [id number] [address]- 2546 Oct, [facility] [id number] [address]- 2506 Apr, [facility] [address] [address]- 5926 Apr, [facility] [id number] [address]- 1826 Nov, [facility] [address] [address]- 2546 Nov, [facility] [address] [address]- 2136 Jul, [facility] [address] [address]- 2546 Jul, [facility] [address] [address]- 5316 Jan, [facility] [id number] [address]- 6306 Jul, IMMUNIZATIONS No Known Immunizations SOCIAL HISTORY Never Assessed REASON FOR VISIT Controlled Med Refill PLAN OF CARE VITAL SIGNS MEDICATIONS Medication Instructions Dosage Frequency Start Date End Date Duration Status Hydrocodone-Acetaminophen 10-325 MG Orally every 8 hours PRN pain- Must last 28 days 1 Tablet Aug, 28 days Active RESULTS No Results PROCEDURES [...]
--- OUTSIDE RECORDS SUMMARY | 2018-09-05 20:57 | XMS REPORT ---
Author Author [facility] PRIN[facility] Address [address] [place] [address] Care Team Providers Care Process Tank Tender Name Role Phone FOSTER PRINCE Unavailable PROBLEMS Type Condition ICD9-CM Code [id number] Code Onset Dates Condition Status SNOMED Code Problem Chronic pain syndrome G89.4 Active 493444696 Problem Long-term use of high-risk medication Z79.899 Active 234686701 Problem Low back pain M54.5 Active 540218024 Problem Obesity E66.9 Active 358344847 ALLERGIES No Information ENCOUNTERS Encounter Location Date Diagnosis [facility] [id number] [place] [address] 19613- 2031 Nov, Long-term use of high-risk medication Z79.899 ; Obesity E66.9 and Low back pain M54.5 [place] [id number] 17108- 7092 Nov, Obesity E66.9 ; Low back pain M54.5 and Long-term use of high-risk medication Z79.899 [facility] [id number] [place] [address] 95183- 7030 Nov, [facility] [id number] [place] [address] 72672- 7706 Oct, Low back pain M54.5 [facility] [id number] [place] [address] 81471- 0599 September, Low back pain M54.5 and Obesity E66.9 [facility] [id number] [place] [address] 90184- 9915 17 Aug, 2017 Low back pain M54.5 [facility] [address] [place] [address]- 2306 Jul, Low back pain M54.5 [facility] [address] 27969- 6949 Jul, [facility] [address] 22431- 0633 Jul, Low back pain M54.5 ; Obesity E66.9 and Submandibular lymphadenopathy R59.0 [facility] [address] 79006- 9069 May, Low back pain M54.5 [facility] [address] 66997- 0213 Apr, Low back pain M54.5 [facility] [address] 36425- 0888 Mar, Low back pain M54.5 [facility] [address] 79010- 4576 Feb, Low back pain M54.5 [facility] [address] 71775- 1497 Feb, Low back pain M54.5 [facility] [address] 23240- 9825 Jan, Low back pain M54.5 [facility] [address] 49492- 0294 Dec, Low back pain M54.5 ; Chronic pain syndrome G89.4 ; Anterior cervical adenopathy R59.0 and Overweight E66.3 [facility] [address] 60249- 3458 Dec, Low back pain M54.5 [facility] [address] 85218- 2505 Nov, Low back pain M54.5 [facility] [address] [place] [address]- 2905 Oct, Low back pain M54.5 [facility] [id number] [place] [address] 58732- 9956 September, Low back pain M54.5 ; Chronic pain syndrome G89.4 and Obesity E66.9 [facility] [id number] [place] [address] 17475- 4514 September, Low back pain M54.5 [facility] [id number] [place] [address] 80499- 8507 Aug, Low back pain M54.5 [facility] [id number] [place] [address] 26421- 6827 Jul, Low back pain M54.5 [facility] [id number] [place] [address] 64347- 6041 Jul, Anterior cervical adenopathy R59.0 [facility] [id number] [place] [address] 45319- 8210 Jul, [facility] [id number] [place] [address] 43553- 3061 Jul, Low back pain M54.5 ; Obesity E66.9 and Anterior cervical adenopathy R59.0 [facility] [id number] [place] [address] 27983- 5956 May, [facility] [id number] [place] [address] 52032- 9453 Apr, [facility] [id number] [place] [address] 19945- 2669 16 Mar, 2016 Low back pain M54.5 and Obesity E66.9 [facility] [id number] [place] [address] 48002- 5496 Feb, [facility] [id number] [place] [address] 31466- 4505 Jan, [facility] [address] [address]- 3967 Jan, [facility] [id number] [place] [address] 96950- 3807 Dec, Low back pain M54.5 and Obesity E66.9 [facility] [id number] [place] [address] 14463- 4427 Nov, Low back pain M54.5 and Obesity E66.9 [facility] [id number] [place] [address] 21889- 0636 Oct, Low back pain M54.5 and Obesity E66.9 [facility] [id number] [place] [address] 96390- 6160 Oct, Low back pain M54.5 ; Obesity E66.9 and Long-term use of high-risk medication Z79.899 [facility] [id number] [place] [address] 41423- 7228 September, [facility] [id number] [place] [address] 96893- 2134 September, Low back pain M54.5 ; Obesity E66.9 and Otitis externa of left ear H60.92 [facility] [address] [place] [address] 89974- 1338 Jul, [facility] [id number] [place] [address] 33105- 2409 Jul, [facility] [id number] [place] [address] 29935- 1689 Jul, Low back pain M54.5 and Obesity E66.9 [facility] [id number] [place] [address] 69182- 6433 May, Low back pain M54.5 ; Obesity E66.9 and History of long- term use of multiple prescription drugs Z92.29 [facility] [address] [place] [address] [id number] Apr, Encounter for dental examination Z01.20 [facility] [id number] [id number] Apr, Encounter for dental examination Z01.20 [facility] [address], [place] [address]- 2546 Apr, [facility] [address] [place] [address] 365650- 5106 Apr, Low back pain M54.5 and Obesity E66.9 [facility] [address] [place] [address] 50128- 0349 Mar, Low back pain M54.5 and Obesity E66.9 [facility] [address] [place] [address] 147270- 0746 Feb, Lumbago 724.2 and Obesity, unspecified 278.00 [facility] [address] [place] [address] 70658- 2486 Jan, Unspecified episodic mood disorder 296.90 and Anxiety state , unspecified 300.00 [facility] [id number] [place] [address] 41595- 2366 Jan, Lumbago 724.2 and Obesity, unspecified 278.00 [facility] [address] [address]- 0685 Jan, [facility] [id number] [place] [address] 99893- 5058 Dec, Lumbago 724.2 and Obesity, unspecified 278.00 [facility] [address] [place] [address] 66923- 9268 Nov, Lumbago 724.2 and Obesity, unspecified 278.00 [facility] [address] [place] [address] 656179- 2037 Oct, Lumbago 724.2 and Obesity, unspecified 278.00 [facility] [address] [address]- 8610 September, Otitis externa of left ear 380.10 ; Ear pain 388.70 and Tooth decayed 521.00 [facility] [address] [address]- 6627 September, Lumbago 724.2 ; Obesity, unspecified 278.00 ; Other chronic pain 338.29 and Unspecified symptom associated with female genital organs 625.9 [facility] [id number] [place] [address] 94043- 2957 Aug, [facility] [id number] [place] [address] 19833- 6086 Aug, [facility] [id number] [place] [address] 68465- 9556 Jul, [facility] [id number] [place] [address] 68637- 6034 Jul, [facility] [id number] [place] [address] 85216- 8391 Jul, [facility] [id number] [place] [address] 466195- 6132 Jul, [facility] [address], [place] [address]- 1994 May, [facility] [address] [place] [address] 395690- 9006 May, [facility] [address] [address]- 5316 May, [facility] [id number] [place] [address] 40523- 0626 May, [facility] [address], [place] [address]- 2546 Apr, [facility] [address] [place] [address] 92936- 3426 Apr, [facility] [place] [facility] [address] [id number] [place] [address]- 7175 Mar, [facility] [place] [facility] [address] [id number] [place] [address]- 0923 Mar, [facility] [place] [facility] [address] [id number] [place] [address]- 4556 Feb, [facility] [place] [facility] [address] [id number] [place] [address]- 7961 Feb, [facility] [place] [facility] [address] [id number] [place] [address]- 8697 Jan, [facility] [place] [facility] [address] [id number] [place] [address]- 4452 Jan, [facility] [place] [facility] [address] [id number] [place] [address]- 7681 Dec, [facility] [place] [facility] [address] [id number] [place] [address]- 3906 Dec, [facility] [place] [facility] [address] [id number] [place] [address]- 9694 Nov, [facility] [place] [facility] [address] [id number] [place] [address]- 1233 Nov, [facility] [place] [facility] [address] [id number] [place] [address]- 8710 Nov, [facility] [place] [facility] [address] [id number] [address]- 3699 Nov, [facility] [place] [facility] [address] [id number] [place] [address]- 5888 Oct, [facility] [place] [facility] [address] [id number] [place] [address]- 3246 Oct, [facility] [place] [facility] [address] [id number] [place] [address]- 9108 Apr, [facility] [place] [facility] [address] [id number] [address]- 5756 Apr, [facility] [id number] [address]- 1746 Nov, [facility] [id number], [place] [address]- 3066 Nov, [facility] [id number] [address]- 2546 Jul, [facility] [id number] [address]- 2546 Jul, [facility] [id number] [address]- 7536 Jan, [facility] [id number], [place] [address]- 9786 Jul, IMMUNIZATIONS No Known Immunizations SOCIAL HISTORY Never Assessed REASON FOR VISIT med refill PLAN OF CARE VITAL SIGNS MEDICATIONS Medication Instructions Dosage Frequency Start Date End Date Duration Status Hydrocodone-Acetaminophen 10-325 MG Orally every 8 hours PRN pain- Must last 28 days 1 Tablet Jul, 28 days Active RESULTS No Results PROCEDURES [...]
--- OUTSIDE RECORDS SUMMARY | 2018-09-05 20:57 | XMS REPORT ---
Author Author FOSTER PRINCE [facility] Address [address] [place] [address] Care Team Providers Care Internet Sales Associate Name Role Phone FOSTER PRINCE Unavailable PROBLEMS Type Condition ICD9-CM Code KKS43-RH Code Onset Dates Condition Status SNOMED Code Problem Chronic pain syndrome G89.4 Active 171721244 Problem Long-term use of high-risk medication Z79.899 Active 653834363 Problem Low back pain M54.5 Active 199967211 Problem Obesity E66.9 Active 540122928 ALLERGIES No Information ENCOUNTERS Encounter Location Date Diagnosis [place] [id number] [place] [address] 87646- 2456 Nov, [facility] [id number] [place] [address] 59497- 7594 Nov, Low back pain M54.5 [place] [id number] [place] [address] 36010- 0339 Nov, Long-term use of high-risk medication Z79.899 ; Obesity E66.9 and Low back pain M54.5 [facility] [id number] [place] [address] 01488- 3025 Nov, Obesity E66.9 ; Low back pain M54.5 and Long-term use of high-risk medication Z79.899 [place] [id number] [place] [address] 54342- 6362 Nov, [place] [id number] [place] [address] 12025- 2124 Oct, Low back pain M54.5 [place] [id number] [place] [address] 35900- 4877 September, Low back pain M54.5 and Obesity E66.9 [facility] [id number] [place] [address] 69037- 4815 Aug, Low back pain M54.5 [facility] [id number] [place] [address] 48074- 0722 Jul, Low back pain M54.5 [facility] [address] 53385- 3913 Jul, [facility] [address] 31597- 3892 Jul, Low back pain M54.5 ; Obesity E66.9 and Submandibular lymphadenopathy R59.0 [facility] [id number] [place] [address] 85696- 9149 May, Low back pain M54.5 [facility] [address] 83439- 5215 Apr, Low back pain M54.5 [facility] [address] 97168- 6561 Mar, Low back pain M54.5 [facility] [id number] [place] [address] 46880- 0544 Feb, Low back pain M54.5 [facility] [address] 97124- 0144 Feb, Low back pain M54.5 [facility] [id number] [place] [address] 85644- 9050 Jan, Low back pain M54.5 [facility] [address] 36672- 2050 Dec, Low back pain M54.5 ; Chronic pain syndrome G89.4 ; Anterior cervical adenopathy R59.0 and Overweight E66.3 [facility] [address] 72405- 4820 Dec, Low back pain M54.5 [facility] [id number] [place] [address] 08071- 6177 Nov, Low back pain M54.5 [facility] [id number] [place] [address] 34037- 4212 Oct, Low back pain M54.5 [facility] [id number] [place] [address] 73057- 3818 September, Low back pain M54.5 ; Chronic pain syndrome G89.4 and Obesity E66.9 [facility] [id number] [place] [address] 66187- 1501 September, Low back pain M54.5 [facility] [id number] [place] [address] 99045- 4500 Aug, Low back pain M54.5 [facility] [id number] [place] [address] 84813- 2101 Jul, Low back pain M54.5 [facility] [id number] [place] [address] 14932- 2236 Jul, Anterior cervical adenopathy R59.0 [facility] [id number] [place] [address] 93240- 5711 Jul, [facility] [id number] [place] [address] 08225- 7113 Jul, Low back pain M54.5 ; Obesity E66.9 and Anterior cervical adenopathy R59.0 [facility] [address] [place] [address] 35187- 5611 May, [facility] [id number] [place] [address] 59455- 6686 Apr, [facility] [id number] [place] [address] 35437- 2723 Mar, Low back pain M54.5 and Obesity E66.9 [facility] [id number], [place] [address]- 0843 Feb, [facility] [id number] [place] [address] 01919- 8152 Jan, [facility] [id number] [place] [address] 27783- 3717 Jan, [facility] [address] 70783- 7148 Dec, Low back pain M54.5 and Obesity E66.9 [facility] [id number] [place] [address] 74241- 3901 Nov, Low back pain M54.5 and Obesity E66.9 [facility] [id number] [place] [address] 81963- 4521 Oct, Low back pain M54.5 and Obesity E66.9 [facility] [id number] [place] [address] 96659- 4820 Oct, Low back pain M54.5 ; Obesity E66.9 and Long-term use of high-risk medication Z79.899 [facility] [id number] [place] [address] 62796- 4786 September, [facility] [id number] [place] [address] 41096- 4132 September, Low back pain M54.5 ; Obesity E66.9 and Otitis externa of left ear H60.92 [facility] [id number] [place] [address] 63814- 5978 Jul, [facility] [id number] [place] [address] 43937- 4422 Jul, [facility] [id number] [place] [address] 20920- 5411 Jul, Low back pain M54.5 and Obesity E66.9 [facility] [address], [place] [address]- 2443 May, Low back pain M54.5 ; Obesity E66.9 and History of long- term use of multiple prescription drugs Z92.29 [facility] [address] [id number] Apr, Encounter for dental examination Z01.20 [facility] [address] [id number] Apr, Encounter for dental examination Z01.20 [facility] [id number] [place] [address] 532236- 4972 Apr, [facility] [id number] [place] [address] 88394- 4366 Apr, Low back pain M54.5 and Obesity E66.9 [facility] [id number] [place] [address] 23417- 8730 Mar, Low back pain M54.5 and Obesity E66.9 [facility] [address] [place] [address] 13958- 3827 Feb, Lumbago 724.2 and Obesity, unspecified 278.00 [facility] [id number] [place] [address] 53700- 9773 Jan, Unspecified episodic mood disorder 296.90 and Anxiety state , unspecified 300.00 [facility] [address] [place] [address] 76574- 4348 Jan, Lumbago 724.2 and Obesity, unspecified 278.00 [facility] [address] [place] [address] 87965- 9350 Jan, [facility] [id number] [place] [address] 22134- 9926 Dec, Lumbago 724.2 and Obesity, unspecified 278.00 [facility] [id number] [place] [address] 20565- 1000 Nov, Lumbago 724.2 and Obesity, unspecified 278.00 [facility] [address] [place] [address] 71477- 0474 Oct, Lumbago 724.2 and Obesity, unspecified 278.00 [facility] [id number] [place] [address] 49986- 7777 September, Otitis externa of left ear 380.10 ; Ear pain 388.70 and Tooth decayed 521.00 [facility] [id number] [place] [address] 18414- 0007 September, Lumbago 724.2 ; Obesity, unspecified 278.00 ; Other chronic pain 338.29 and Unspecified symptom associated with female genital organs 625.9 [facility] [id number] [place] [address] 88408- 0137 Aug, [facility] [id number] [place] [address] 09987- 8044 Aug, [facility] [id number] [place] [address] 77678- 1062 Jul, [facility] [id number] [place] [address] 37183- 7733 Jul, [facility] [address], [place] [address]- 7911 Jul, [facility] [id number] [place] [address] 67540- 7841 Jul, [facility] [address], [place] [address]- 7508 May, [facility] [id number] [place] [address] 96573- 5713 May, [facility] [address] 4686 May, [facility] [id number] [place] [address] 21974- 1067 May, [facility] [place] [facility] [address] [id number] [place] 7467 Apr, [facility] [place] [facility] [address] [id number] [place] [address]- 3593 Apr, [facility] [place] [facility] [address] [id number] [place] [address]- [address] Mar, [facility] [place] [facility] [address] [id number] [place] [address] Mar, [facility] [place] [facility] [address] [id number] [place] [address] Feb, [facility] [place] [facility] [address] [id number] [place] [address] Feb, [facility] [place] [facility] [address] [id number] [place] [address] Jan, [facility] [place] [facility] [address] [id number] [place] [address] Jan, [facility] [place] [facility] [address] [id number] [place] [address] Dec, [facility] [place] [facility] [address] [id number] [place] [address] Dec, [facility] [place] [facility] [address] [id number] [place] [address] Nov, [facility] [place] [facility] [address] [id number], [place] [address] Nov, [facility] [place] [facility] [address] [id number] [place] [address] Nov, [facility] [place] [facility] [address] [id number] [place] [address] Nov, [facility] [place] [facility] [address] [id number] [place] [address] Oct, [facility] [place] [facility] [address] [id number] [address] Oct, [facility] [address] [id number], [place] [address] Apr, [facility] [id number], [place] [address] Apr, [facility] [address] [id number], [place] [address] Nov, [facility] [id number], [place] [address] Nov, [facility] [id number], [place] [address] Jul, [facility] [id number], [place] [address] Jul, [facility] [id number], [place] [address] Jan, [facility] [address] [id number], [place] [address] Jul, IMMUNIZATIONS No Known Immunizations SOCIAL HISTORY Never Assessed REASON FOR VISIT Controlled Med Refill PLAN OF CARE VITAL SIGNS MEDICATIONS Medication Instructions Dosage Frequency Start Date End Date Duration Status Hydrocodone-Acetaminophen 10-325 MG Orally every 8 hours PRN pain- Must last 28 days 1 Tablet September, 28 days Active RESULTS No Results PROCEDURES [...]
--- OUTSIDE RECORDS SUMMARY | 2018-09-05 20:58 | XMS REPORT ---
Author Author JOE CREWS Organization [employer] Address Unknown Phone Unavailable Care Team Providers Care Dock Or Pier Laborer Name Role Phone JOE CREWS CP Unavailable Allergies No Known Allergies Problems Problem Type Condition ICD-9 Code Onset Dates Condition Status Problem Obesity, unspecified 278.00 Active Problem Other chronic pain 338.29 Active Problem Lumbago 724.2 Active Problem Unspecified symptom associated with female genital organs 625.9 Active Medications No Known Medications Results No Known Results Summary Purpose [employer] Submission
--- OUTSIDE RECORDS SUMMARY | 2018-09-05 20:58 | XMS REPORT ---
Author Author JOE CREWS Organization [employer] Address Unknown Phone Unavailable Care Team Providers Care Aerospace Engineer Name Role Phone JOE CREWS CP Unavailable Allergies No Known Allergies Problems Problem Type Condition ICD-9 Code Onset Dates Condition Status Assessment Anxiety state, unspecified 300.00 Active Problem Anxiety state, unspecified 300.00 Active Problem Lumbago 724.2 Active Problem Unspecified episodic mood disorder 296.90 Active Problem Unspecified symptom associated with female genital organs 625.9 Active Assessment Unspecified episodic mood disorder 296.90 Active Problem Obesity, unspecified 278.00 Active Problem Other chronic pain 338.29 Active Medications No Known Medications Procedures Procedure Coding System Code Date Psych diagnostic evaluation, established patient CPT-4 01473 Feb 18, 2015 Results No Known Results Summary Purpose [employer] Submission
--- OUTSIDE RECORDS SUMMARY | 2018-09-05 20:58 | XMS REPORT ---
Author Author FOSTER PRINCE Organization [employer] Address Unknown Phone Unavailable Care Team Providers Care [employer] Principal Name Role Phone FOSTER PRINCE CP Unavailable Allergies, Adverse Reactions, Alerts Substance Reaction Event Type N.K.D.A. Info Not Available Non Drug Allergy Problems Problem Type Condition ICD-9 Code Onset Dates Condition Status Problem Obesity, unspecified 278.00 Active Problem Other chronic pain 338.29 Active Problem Lumbago 724.2 Active Assessment Obesity, unspecified 278.00 Active Problem Unspecified symptom associated with female genital organs 625.9 Active Assessment Lumbago 724.2 Active Medications Medication Code System Code Instructions Start Date End Date Status Dosage Hydrocodone-Acetaminophen [facility] [address]-77 10-325 MG Orally every 8 hours PRN pain [address] Di[address] HCl [address] [facility] [address]-89 75 MG Orally Once a day Feb 12, 2015 Mar 14, 2015 1 tablet Procedures Procedure Coding System Code Date Office Visit, Est Pt., Level 3 CPT-4 18585 Feb 12, 2015 Vital Signs Date/Time: Feb 12, 2015 Temperature 97.9 F Weight 201.8 lbs Height 66 in BMI 32.57 Index Blood Pressure Diastolic 78 mmHg Blood Pressure Systolic 118 mmHg Cardiac Monitoring Heart Rate 80 bpm Results No Known Results Summary Purpose [employer] Submission
--- OUTSIDE RECORDS SUMMARY | 2018-09-05 20:58 | XMS REPORT ---
Author Author FOSTER PRINCE [facility] Address [address] [place] [address] Care Team Providers Care Receiving Inspector Name Role Phone FOSTER PRINCE Unavailable PROBLEMS Type Condition ICD9-CM Code [id number] Code Onset Dates Condition Status SNOMED Code Problem Chronic pain syndrome G89.4 Active 983549774 Problem Long-term use of high-risk medication Z79.899 Active 208897385 Problem Low back pain M54.5 Active 133640577 Problem Obesity E66.9 Active 348268634 ALLERGIES No Known Allergies ENCOUNTERS Encounter Location Date Diagnosis [place] [id number] [place] [address] 24453- 6898 13 Oct, 2017 Low back pain M54.5 [facility] [id number] [place] [address] 04917- 1823 September, Low back pain M54.5 and Obesity E66.9 [place] [id number] [place] [address] 72036- 4427 Aug, Low back pain M54.5 [place] [id number] [place] [address] 32277- 5608 Jul, Low back pain M54.5 [facility] [id number] [place] [address] 59830- 7385 Jul, [facility] [address] [address]- [address]35 Jul, Low back pain M54.5 ; Obesity E66.9 and Submandibular lymphadenopathy R59.0 [facility] [id number] [place] [address] 34868- 1775 May, Low back pain M54.5 [facility] [address] [facility] [id number] [address] 7661 Apr, Low back pain M54.5 [facility] [id number] [place] [address] 09946- 2383 Mar, Low back pain M54.5 [facility] [id number] [place] [address] 73404- 2832 Feb, Low back pain M54.5 [facility] [id number] [place] [address] 62625- 8281 Feb, Low back pain M54.5 [facility] [id number] [place] [address] 85411- 5329 Jan, Low back pain M54.5 [facility] [id number] [place] [address] 68804- 2735 Dec, Low back pain M54.5 ; Chronic pain syndrome G89.4 ; Anterior cervical adenopathy R59.0 and Overweight E66.3 [facility] [id number] [place] [address] 28739- 3267 Dec, Low back pain M54.5 [facility] [id number] [place] [address] 85806- 4973 Nov, Low back pain M54.5 [facility] [id number] [place] [address] 99292- 5142 Oct, Low back pain M54.5 [facility] [id number] [place] [address] 09591- 7432 September, Low back pain M54.5 ; Chronic pain syndrome G89.4 and Obesity E66.9 [facility] [id number] [place] [address] 72330- 9600 September, Low back pain M54.5 [facility] [id number] [place] [address] 67181- 1051 Aug, Low back pain M54.5 [facility] [id number] [place] [address] 73138- 8779 Jul, Low back pain M54.5 [facility] [id number] [place] [address] 82894- 5068 Jul, Anterior cervical adenopathy R59.0 [facility] [id number] [place] [address] 15250- 2929 Jul, [facility] [id number] [place] [address] 15373- 0834 Jul, Low back pain M54.5 ; Obesity E66.9 and Anterior cervical adenopathy R59.0 [facility] [id number] [place] [address] 97406- 1455 May, [facility] [id number] [place] [address] 57337- 2717 Apr, [facility] [id number] [place] [address] 69116- 1152 Mar, Low back pain M54.5 and Obesity E66.9 [facility] [id number] [place] [address] 22116- 5422 Feb, [facility] [id number] [place] [address] 86869- 0923 Jan, [facility] [id number] [place] [address] 30972- 5558 Jan, [facility] [id number] [place] [address] 13002- 8920 Dec, Low back pain M54.5 and Obesity E66.9 [facility] [id number] [place] [address] 77350- 7833 Nov, Low back pain M54.5 and Obesity E66.9 [facility] [id number] [place] [address] 42266- 2715 Oct, Low back pain M54.5 and Obesity E66.9 [facility] [id number] [place] [address] 38599- 7051 Oct, Low back pain M54.5 ; Obesity E66.9 and Long-term use of high-risk medication Z79.899 [facility] [id number] [place] [address] 83458- 8589 September, [facility] [address] 56918- 4667 September, Low back pain M54.5 ; Obesity E66.9 and Otitis externa of left ear H60.92 [facility] [address] 11682- 1901 Jul, [facility] [id number] [place] [address] 62724- 2678 Jul, [facility] [address] 55028- 2213 Jul, Low back pain M54.5 and Obesity E66.9 [facility] [address] 03531- 2605 May, Low back pain M54.5 ; Obesity E66.9 and History of long- term use of multiple prescription drugs Z92.29 [facility] [id number] [place] [address] [id number] Apr, Encounter for dental examination Z01.20 [facility] [id number] [place] [address] [id number] Apr, Encounter for dental examination Z01.20 [facility] [id number] [place] [address] 10192- 1349 Apr, [facility] [id number] [place] [address] 32331- 9479 Apr, Low back pain M54.5 and Obesity E66.9 [facility] [id number] [place] [address] 60827- 5383 Mar, Low back pain M54.5 and Obesity E66.9 [place] [id number] [place] [address] 46961- 6961 Feb, Lumbago 724.2 and Obesity, unspecified 278.00 [place] [id number] [place] [address] 24893- 8811 Jan, Unspecified episodic mood disorder 296.90 and Anxiety state , unspecified 300.00 [place] [id number] [place] [address] 45694- 2395 Jan, Lumbago 724.2 and Obesity, unspecified 278.00 [place] [id number] [place] [address] 65089- 3799 Jan, [place] [id number] [place] [address] 62804- 3165 Dec, Lumbago 724.2 and Obesity, unspecified 278.00 [place] [id number] [place] [address] 89249- 4816 Nov, Lumbago 724.2 and Obesity, unspecified 278.00 [place] [id number] [place] [address] 36137- 5509 Oct, Lumbago 724.2 and Obesity, unspecified 278.00 [place] [id number] [place] [address] 39288- 4799 September, Otitis externa of left ear 380.10 ; Ear pain 388.70 and Tooth decayed 521.00 [place] [id number] [place] [address] 43299- 7224 September, Lumbago 724.2 ; Obesity, unspecified 278.00 ; Other chronic pain 338.29 and Unspecified symptom associated with female genital organs 625.9 [place] [id number] [place] [address] 38636- 7196 Aug, [facility] [place] [facility] [address] [id number] [place] [address]- 3427 Aug, [facility] [place] [facility] [address] [id number] [place] [address]- 1697 Jul, [facility] [place] [facility] [address] [id number] [place] [address]- 5602 Jul, [facility] [place] [facility] [address] [id number] [place] [address]- 0693 Jul, [facility] [place] [facility] [address] [id number] [place] [address]- 1449 Jul, [facility] [place] [facility] [address] [id number] [place] [address]- 9018 May, [facility] [place] [facility] [address] [id number] [place] [address]- 0478 May, [facility] [place] [facility] [address] [id number] [place] [address]- 6330 May, [facility] [place] [facility] [address] [id number] [place] [address]- 8089 May, [facility] [place] [facility] [address] [id number] [place] [address]- 5794 Apr, [facility] [place] [facility] [address] [id number] [place] [address]- 4568 Apr, [facility] [place] [facility] [address] [id number] [address]- 4068 Mar, [facility] [place] [facility] [address] [id number] [place] [address]- 3918 Mar, [facility] [place] [facility] [address] [id number] [place] [address]- 0514 Feb, [facility] [place] [facility] [address] [id number] [place] [address]- 8917 Feb, [facility] [place] [facility] [address] [id number] [place] [address]- 1704 Jan, [facility] [place] [facility] [address] [id number] [place] [address]- 3285 Jan, [facility] [place] [facility] [address] [id number] [place] [address]- 3686 Dec, [facility] [place] [facility] [address] [id number] [place] [address]- 0989 Dec, [facility] [place] [facility] [address] [id number] [place] [address]- 5829 Nov, [facility] [place] [facility] [address] [id number] [place] [address]- 1800 Nov, [facility] [place] [facility] [address] [id number] [place] [address]- 4775 Nov, [facility] [place] [facility] [address] [id number] [place] [address]- 6150 Nov, [facility] [place] [facility] [address] [id number] [place] [address]- 9758 Oct, [facility] [place] [facility] [address] [id number] [place] [address]- 1895 Oct, [facility] [place] [facility] [address] [id number] [place] [address]- 8162 Apr, [facility] [place] [facility] [address] [id number] [place] [address]- 9442 Apr, [facility] [place] [facility] [address] [id number] [place] [address]- 9879 Nov, [facility] [place] [facility] [address] [id number] [place] [address]- 4682 Nov, [facility] [place] [facility] [address] [id number] [place] [address]- 6995 Jul, [facility] [place] [facility] [address] [id number] [place] [address]- 1757 Jul, [facility] [place] [facility] [address] [facility] [id number] [place] [address]- 1096 13 Jan, 2011 [facility] [address] [facility] [id number] [place] [address]- 0927 11 Jul, 2010 IMMUNIZATIONS No Known Immunizations SOCIAL HISTORY Never Assessed REASON FOR VISIT Pain management (chronic) due tomorrow, ktramauri orr-Elle, Would like to discuss weight loss PLAN OF CARE Activity Details Follow Up 4 Weeks weight, 3 Months pain Reason:weight VITAL SIGNS Height 66 in 2017-07-20 Weight 222.7 lbs 2017-07-20 Temperature 97.3 degrees Fahrenheit 2017-07-20 Heart Rate 78 bpm 2017-07-20 Respiratory Rate 2017-07-20 BMI 35.94 kg/m2 2017-07-20 Blood pressure systolic 124 mmHg 2017-07-20 Blood pressure diastolic 78 mmHg 2017-07-20 MEDICATIONS Medication Instructions Dosage Frequency Start Date End Date Duration Status Phentermine HCl 37.5 MG Orally Once a day 1 tablet 24h 28 days Active Hydrocodone-Acetaminophen 10-325 MG Orally every 8 hours PRN pain- Must last 28 days 1 Tablet Jul, 28 days Active RESULTS Name Result Date Reference Range CBC w/MANUAL DIFF 2017-07-20 WHITE BLOOD CELL COUNT 11.9 3.8-10.8 RED BLOOD CELL COUNT 5.34 3.80-5.10 HEMOGLOBIN 16.0 11.7-15.5 HEMATOCRIT 45.7 35.0-45.0 MCV 85.6 80.0-100.0 MCH 30.0 27.0-33.0 MCHC 35.0 32.0-36.0 RDW 13.0 11.0-15.0 PLATELET COUNT 350 140-400 MPV 10.0 7.5-12.5 DIFFERENTIAL, MANUAL 2017-07-20 ABSOLUTE NEUTROPHILS 7116 [phone] ABSOLUTE BAND NEUTROPHILS 119 0-750 ABSOLUTE LYMPHOCYTES 3499 850-3900 ABSOLUTE MONOCYTES 928 200-950 ABSOLUTE EOSINOPHILS 119 15-500 ABSOLUTE BASOPHILS 119 0-200 NEUTROPHILS 59.8 BAND NEUTROPHILS 1.0 LYMPHOCYTES 29.4 MONOCYTES 7.8 EOSINOPHILS 1.[address] Scan : Neck Soft Tissue w/ Contrast 2017-07-26 PROCEDURES Procedure Date Ordered Result Body Site MANUAL CELL COUNT, EACH Jul 20, 2017 VENIPUNCT, ROUTINE* Jul 20, 2017 INSTRUCTIONS MEDICATIONS ADMINISTERED No Known Medications [...]
--- OUTSIDE RECORDS SUMMARY | 2018-09-05 20:58 | XMS REPORT ---
Author Author FOSTER PRINCE [facility] Address [address] [place] [address] Care Team Providers Care Business Continuity Specialist Name Role Phone FOSTER PRINCE Unavailable PROBLEMS Type Condition ICD9-CM Code FSW77-VD Code Onset Dates Condition Status SNOMED Code Problem Chronic pain syndrome G89.4 Active 600358593 Problem Long-term use of high-risk medication Z79.899 Active 268937401 Problem Low back pain M54.5 Active 115817294 Problem Obesity E66.9 Active 920116230 ALLERGIES No Information ENCOUNTERS Encounter Location Date Diagnosis [facility] [id number] [place] [address] 67301- 6558 Oct, Low back pain M54.5 [facility] [id number] [place] [address] 10090- 9890 September, Low back pain M54.5 and Obesity E66.9 [facility] [id number] [place] [address] 19842- 1372 Aug, Low back pain M54.5 [facility] [id number] [place] [address] 36852- 9464 Jul, Low back pain M54.5 [facility] [id number] [place] [address] 81224- 3393 Jul, [facility] [address] [address]- [address]103 Jul, Low back pain M54.5 ; Obesity E66.9 and Submandibular lymphadenopathy R59.0 [facility] [id number] [place] [address] 25783- 8114 May, Low back pain M54.5 [facility] [address] [address] Apr, Low back pain M54.5 [facility] [id number] [place] [address] 13808- 3156 Mar, Low back pain M54.5 [facility] [id number] [place] [address] 60860- 7686 Feb, Low back pain M54.5 [facility] [id number] [place] [address] 89548- 4097 Feb, Low back pain M54.5 [facility] [id number] [place] [address] 02334- 6545 Jan, Low back pain M54.5 [facility] [id number] [place] [address] 72381- 4739 Dec, Low back pain M54.5 ; Chronic pain syndrome G89.4 ; Anterior cervical adenopathy R59.0 and Overweight E66.3 [facility] [id number] [place] [address] 69617- 3048 Dec, Low back pain M54.5 [facility] [id number] [place] [address] 59574- 8922 Nov, Low back pain M54.5 [facility] [id number] [place] [address] 17103- 6672 Oct, Low back pain M54.5 [facility] [id number] [place] [address] 10696- 7220 September, Low back pain M54.5 ; Chronic pain syndrome G89.4 and Obesity E66.9 [facility] [id number] [place] [address] 71446- 2672 September, Low back pain M54.5 [facility] [id number] [place] [address] 67895- 4714 Aug, Low back pain M54.5 [facility] [address] [facility] [id number] [address] 9[address] Jul, Low back pain M54.5 [facility] [id number] [place] [address] 94520- 9401 Jul, Anterior cervical adenopathy R59.0 [facility] [id number] [place] [address] 90694- 7490 Jul, [facility] [id number] [place] [address] 35198- 2199 Jul, Low back pain M54.5 ; Obesity E66.9 and Anterior cervical adenopathy R59.0 [facility] [id number] [place] [address] 05049- 9552 May, [facility] [id number] [place] [address] 77834- 7869 Apr, [facility] [id number] [place] [address] 50484- 2135 Mar, Low back pain M54.5 and Obesity E66.9 [facility] [id number] [place] [address] 28006- 5829 Feb, [facility] [id number] [place] [address] 62457- 2982 Jan, [facility] [id number] [place] [address] 20432- 3827 Jan, [facility] [id number] [place] [address] 70117- 2459 Dec, Low back pain M54.5 and Obesity E66.9 [facility] [id number] [place] [address] 42067- 5868 Nov, Low back pain M54.5 and Obesity E66.9 [facility] [id number] [place] [address] 58588- 0211 Oct, Low back pain M54.5 and Obesity E66.9 [facility] [id number] [place] [address] 03446- 9861 Oct, Low back pain M54.5 ; Obesity E66.9 and Long-term use of high-risk medication Z79.899 [facility] [id number] [place] [address] 95549- 7333 September, [facility] [address] 56706- 9278 September, Low back pain M54.5 ; Obesity E66.9 and Otitis externa of left ear H60.92 [facility] [address] 11565- 9108 Jul, [facility] [address] 48439- 1315 Jul, [facility] [address] 79249- 8792 Jul, Low back pain M54.5 and Obesity E66.9 [facility] [id number] [place] [address] 53661- 3880 May, Low back pain M54.5 ; Obesity E66.9 and History of long- term use of multiple prescription drugs Z92.29 [facility] [id number] [place] [address] [id number] Apr, Encounter for dental examination Z01.20 [facility] [id number] [place] [address] [id number] Apr, Encounter for dental examination Z01.20 [facility] [id number] [place] [address] 06371- 6608 Apr, [facility] [id number] [place] [address] 03264- 6249 Apr, Low back pain M54.5 and Obesity E66.9 [facility] [id number] [place] [address] 49609- 4878 Mar, Low back pain M54.5 and Obesity E66.9 [facility] [id number] [place] [address] 39927- 0600 Feb, Lumbago 724.2 and Obesity, unspecified 278.00 [facility] [id number] [place] [address] 53343- 1419 Jan, Unspecified episodic mood disorder 296.90 and Anxiety state , unspecified 300.00 [facility] [id number] [place] [address] 57425- 8192 Jan, Lumbago 724.2 and Obesity, unspecified 278.00 [facility] [id number] [place] [address] 44976- 3364 Jan, [facility] [id number] [place] [address] 35758- 4145 Dec, Lumbago 724.2 and Obesity, unspecified 278.00 [facility] [id number] [place] [address] 28304- 0569 Nov, Lumbago 724.2 and Obesity, unspecified 278.00 [facility] [id number] [place] [address] 70760- 1922 Oct, Lumbago 724.2 and Obesity, unspecified 278.00 [facility] [id number] [place] [address] 59924- 2767 September, Otitis externa of left ear 380.10 ; Ear pain 388.70 and Tooth decayed 521.00 [facility] [id number] [place] [address] 57013- 0714 September, Lumbago 724.2 ; Obesity, unspecified 278.00 ; Other chronic pain 338.29 and Unspecified symptom associated with female genital organs 625.9 [facility] [id number] [place] [address] 88557- 2209 Aug, [facility] [place] [facility] [address] [id number] [place] [address]- 4481 Aug, [facility] [place] [facility] [address] [id number] [place] [address]- 7258 Jul, [facility] [place] [facility] [address] [id number] [place] [address]- 6001 Jul, [facility] [place] [facility] [address] [id number] [place] [address]- 3187 Jul, [facility] [place] [facility] [address] [id number] [place] [address]- 2138 Jul, [facility] [place] [facility] [address] [id number] [place] [address]- 1974 May, [facility] [place] [facility] [address] [id number] [place] [address]- 3728 May, [facility] [place] [facility] [address] [id number] [place] [address]- 1090 May, [facility] [place] [facility] [address] [id number] [place] [address]- 2465 May, [facility] [place] [facility] [address] [id number] [place] [address]- 5180 Apr, [facility] [place] [facility] [address] [id number] [place] [address]- 1784 Apr, [facility] [place] [facility] [address] [id number], [place] [address]- 9333 Mar, [facility] [place] [facility] [address] [id number] [place] [address]- 8432 Mar, [facility] [place] [facility] [address] [id number] [place] [address]- 3950 Feb, [facility] [place] [facility] [address] [id number] [place] [address]- 7964 Feb, [facility] [place] [facility] [address] [id number] [place] [address]- 2456 Jan, [facility] [place] [facility] [address] [id number] [place] 0375 Jan, [facility] [place] [facility] [address] [id number] [place] [address]- 5016 Dec, [facility] [place] [facility] [address] [id number] [place] [address]- 1271 Dec, [facility] [place] [facility] [address] [id number] [place] [address]- 7700 Nov, [facility] [place] [facility] [address] [id number] [place] [address]- 7997 Nov, [facility] [place] [facility] [address] [id number] [place] [address]- 7010 Nov, [facility] [place] [facility] [address] [id number] [place] [address]- 3761 Nov, [facility] [place] [facility] [address] [id number] [place] [address]- 3798 Oct, [facility] [place] [facility] [address] [id number] [place] [address]- 5062 Oct, [facility] [place] [facility] [address] [id number] [place] [address]- 6245 Apr, [facility] [place] [facility] [address] [id number] [place] [address]- 0256 Apr, [facility] [place] [facility] [address] [id number] [place] [address]- 3936 Nov, [facility] [place] [facility] [address] [id number] [place] [address]- 6654 Nov, [facility] [place] [facility] [address] [id number] [place] [address]- 3926 Jul, [facility] [place] [facility] [address] [id number] [place] [address]- 0626 Jul, [facility] [place] [facility] [address] [facility] [id number] [place] [address]- 2015 13 Jan, 2011 [facility] [address] [facility] [id number], [place] [address]- 9080 11 Jul, 2010 IMMUNIZATIONS No Known Immunizations SOCIAL HISTORY Never Assessed REASON FOR VISIT lab results PLAN OF CARE VITAL SIGNS MEDICATIONS Unknown [...]
--- OUTSIDE RECORDS SUMMARY | 2018-09-05 20:58 | XMS REPORT ---
Author Author CINDY CARDONA [employer] Address Unknown Phone Unavailable Care Team Providers Care Sisal Picker Name Role Phone CINDY CARDONA CP Unavailable Allergies, Adverse Reactions, Alerts Substance Reaction Event Type N.K.D.A. Info Not Available Non Drug Allergy Problems Problem Type Condition Code Onset Dates Condition Status Problem Low back pain M54.5 Active Problem Obesity E66.9 Active Problem Encounter for dental examination Z01.20 Active Problem Anxiety state, unspecified 300.00 Active Assessment Encounter for dental examination Z01.20 Active Medications Medication Code System Code Instructions Start Date End Date Status Dosage Phentermine HCl [facility] [address]-79 37.5 MG Orally Once a day- appt needed before next refill 1 tablet Hydrocodone-Acetaminophen [facility] [address]-93 10-325 MG Orally every 8 hours PRN pain-appt needed before next refill 1 Tablet Procedures Procedure Coding System Code Date Periodontal scaling and root CPT-4 D4341 May 28, 2015 Periodontal scaling and root CPT-4 D4341 May 28, 2015 COMP ORAL EVALUATION - NEW/EST PT CPT-4 D0150 May 28, 2015 Vital Signs Date/Time: May 28, 2015 Blood Pressure Diastolic 86 mmHg Blood Pressure Systolic 123 mmHg Results No Known Results Summary Purpose [employer] Submission
--- OUTSIDE RECORDS SUMMARY | 2018-09-05 20:58 | XMS REPORT ---
Author Author YEIMI BRADLEY [employer] Address Unknown Phone Unavailable Care Team Providers Care Portal Administrator Name Role Phone YEIMI BRADLEY CP Unavailable Allergies, Adverse Reactions, Alerts Substance [...] End Date Status Dosage Phentermine HCl [facility] [address]-72 37.5 MG Orally Once a day- appt needed before next refill 1 tablet Hydrocodone-Acetaminophen [facility] [address]-13 10-325 MG Orally every 8 hours PRN pain-appt needed before next refill 1 Tablet Procedures Procedure Coding System Code Date INTRAORL-PERIAPICAL EA ADD FILM CPT-4 D0230 May 23, 2015 INTRAORL-PERIAPICAL EA ADD FILM CPT-4 D0230 May 23, 2015 INTRAORL-PERIAPICAL 1 FILM 88849 CPT-4 D0220 May 23, 2015 PANORAMIC FILM SEE ALSO CODE 27557 CPT-4 D0330 May 23, 2015 BITEWINGS - FOUR FILMS CPT-4 D0274 May 23, 2015 Vital Signs Date/Time: May 23, 2015 Blood Pressure Diastolic 72 mmHg Blood Pressure Systolic 111 mmHg Cardiac Monitoring Heart Rate 68 bpm Results No Known Results Summary Purpose [employer] Submission
--- OUTSIDE RECORDS SUMMARY | 2018-09-05 20:59 | XMS REPORT ---
Author Author FOSTER PRINCE [facility] Address [address] [place] [address] Care Team Providers Care Balancing Machine Operator Name Role Phone FOSTER PRINCE Unavailable PROBLEMS Type Condition ICD9-CM Code PSE38-BT Code Onset Dates Condition Status SNOMED Code Problem Anxiety state, unspecified 300.00 Active 660107512 Problem Anterior cervical adenopathy R59.0 Active 257902752 Problem Chronic pain syndrome G89.4 Active 277511309 Problem Low back pain M54.5 Active 309705397 Problem Obesity E66.9 Active 509081952 Problem Long-term use of high-risk medication Z79.899 Active 492879076 Problem History of long-term use of multiple prescription drugs Z92.29 Active 228179485 ALLERGIES No Information SOCIAL HISTORY Never Assessed PLAN OF CARE VITAL SIGNS MEDICATIONS Medication Instructions Dosage Frequency Start Date End Date Duration Status Hydrocodone-Acetaminophen 10-325 MG Orally every 8 hours PRN pain- Must last 14 days- Must keep appt to refill 1 Tablet Active RESULTS No Results PROCEDURES No Known procedures IMMUNIZATIONS No Known Immunizations MEDICAL (GENERAL) HISTORY Type Description Date Medical [...]
--- OUTSIDE RECORDS SUMMARY | 2018-09-05 20:59 | XMS REPORT ---
Author Author FOSTER PRINCE Organization [employer] Address Unknown Phone Unavailable Care Team Providers Care Computer Language Coder Name Role Phone FOSTER PRINCE CP Unavailable Allergies, Adverse Reactions, Alerts Substance Reaction Event Type N.K.D.A. Info Not Available Non Drug Allergy Problems Problem Type Condition Code Onset Dates Condition Status Assessment Obesity, unspecified 278.00 Active Problem Anxiety state, unspecified 300.00 Active Problem Lumbago 724.2 Active Problem Unspecified episodic mood disorder 296.90 Active Problem Unspecified symptom associated with female genital organs 625.9 Active Assessment Lumbago 724.2 Active Problem Obesity, unspecified 278.00 Active Problem Other chronic pain 338.29 Active Medications Medication Code System Code Instructions Start Date End Date Status Dosage Hydrocodone-Acetaminophen [facility] [address]-18 10-325 MG Orally every 8 hours PRN pain 1 Tablet Diethylpropion HCl ER [facility] [address]-10 75 MG Orally Once a day Apr 11, 2015 1 tablet Procedures Procedure Coding System Code Date Office Visit, Est Pt., Level 3 CPT-4 45453 Mar 12, 2015 Vital Signs Date/Time: Mar 12, 2015 Temperature 97.8 F Weight 202.9 lbs Height 66 in BMI 32.75 Index Blood Pressure Diastolic 80 mmHg Blood Pressure Systolic 118 mmHg Cardiac Monitoring Heart Rate 80 bpm Results No Known Results Summary Purpose [employer] Submission
--- OUTSIDE RECORDS SUMMARY | 2018-09-05 20:59 | XMS REPORT ---
Author Author FOSTER PRINCE [facility] Address [address] [place] [address] Care Team Providers Care Paratransit Operator Name Role Phone FOSTER PRINCE Unavailable PROBLEMS Type Condition ICD9-CM Code NXT04-BH Code Onset Dates Condition Status SNOMED Code Problem Chronic pain syndrome G89.4 Active 388494865 Problem Long-term use of high-risk medication Z79.899 Active 608228505 Problem Low back pain M54.5 Active 946896730 Problem Obesity E66.9 Active [id number] ALLERGIES No Known Allergies ENCOUNTERS Encounter Location Date Diagnosis [place] [id number] [place] [address] 92465- 2688 Aug, Low back pain M54.5 [facility] [id number] [place] [address] 09316- 8423 Jul, Low back pain M54.5 [facility] [id number] [place] [address] 45120- 7247 Jul, [facility] [id number] [place] [address] 83554- 4620 Jul, Low back pain M54.5 ; Obesity E66.9 and Submandibular lymphadenopathy R59.0 [facility] [id number] [place] [address] 27202- 9221 May, Low back pain M54.5 [facility] [address] [address]- 0812 Apr, Low back pain M54.5 [facility] [id number] [place] [address] 17479- 8005 Mar, Low back pain M54.5 [facility] [id number] [place] [address] 67894- 4003 Feb, Low back pain M54.5 [facility] [id number] [place] [address] 30704- 0344 Feb, Low back pain M54.5 [facility] [id number] [place] [address] 69657- 3005 Jan, Low back pain M54.5 [facility] [id number] [place] [address] 95781- 0502 Dec, Low back pain M54.5 ; Chronic pain syndrome G89.4 ; Anterior cervical adenopathy R59.0 and Overweight E66.3 [facility] [id number] [place] [address] 93680- 7540 Dec, Low back pain M54.5 [facility] [id number] [place] [address] 16839- 6400 Nov, Low back pain M54.5 [facility] [id number] [place] [address] 68333- 3379 Oct, Low back pain M54.5 [facility] [id number] [place] [address] 03457- 5516 September, Low back pain M54.5 ; Chronic pain syndrome G89.4 and Obesity E66.9 [facility] [id number] [place] [address] 05442- 9002 September, Low back pain M54.5 [facility] [id number] [place] [address] 40130- 7783 Aug, Low back pain M54.5 [facility] [id number] [place] [address] 65696- 0200 Jul, Low back pain M54.5 [facility] [id number] [place] [address] 80067- 9461 Jul, Anterior cervical adenopathy R59.0 [facility] [id number] [place] [address] 77733- 6402 Jul, [facility] [id number] [place] [address] 83093- 2525 09 Jul, 2016 Low back pain M54.5 ; Obesity E66.9 and Anterior cervical adenopathy R59.0 [facility] [id number] [place] [address] 26546- 7701 May, [facility] [id number] [place] [address] 50906- 2245 Apr, [facility] [id number] [place] [address] 87348- 5173 Mar, Low back pain M54.5 and Obesity E66.9 [facility] [id number] [place] [address] 14044- 6049 Feb, [facility] [id number] [place] [address] 48876- 9318 Jan, [facility] [id number] [place] [address] 15722- 0475 Jan, [facility] [id number] [place] [address] 10410- 7391 Dec, Low back pain M54.5 and Obesity E66.9 [facility] [id number] [place] [address] 03859- 5076 Nov, Low back pain M54.5 and Obesity E66.9 [facility] [id number] [place] [address] 32997- 9180 Oct, Low back pain M54.5 and Obesity E66.9 [facility] [id number] [place] [address] 23779- 2835 Oct, Low back pain M54.5 ; Obesity E66.9 and Long-term use of high-risk medication Z79.899 [facility] [id number] [place] [address]- 4878 September, [facility] [id number] [place] [address] 88287- 5983 September, Low back pain M54.5 ; Obesity E66.9 and Otitis externa of left ear H60.92 [facility] [id number] [place] [address] 28950- 1532 Jul, [facility] [id number] [place] [address] 35438- 2700 Jul, [facility] [id number] [place] [address] 05135- 0642 Jul, Low back pain M54.5 and Obesity E66.9 [facility] [id number] [place] [address] 08922- 8388 May, Low back pain M54.5 ; Obesity E66.9 and History of long- term use of multiple prescription drugs Z92.29 [facility] [id number] [place] [address] [id number] Apr, Encounter for dental examination Z01.20 [facility] [id number] [place] [address] [id number] Apr, Encounter for dental examination Z01.20 [facility] [id number] [place] [address] 06531- 5913 Apr, [facility] [id number] [place] [address] 35254- 0696 Apr, Low back pain M54.5 and Obesity E66.9 [facility] [id number] [place] [address] 79220- 1514 Mar, Low back pain M54.5 and Obesity E66.9 [facility] [id number] [place] [address] 67571- 7487 13 Feb, 2015 Lumbago 724.2 and Obesity, unspecified 278.00 [facility] [id number] [place] [address] 06663- 7498 Jan, Unspecified episodic mood disorder 296.90 and Anxiety state , unspecified 300.00 [place] [id number] [place] [address] 30870- 8694 Jan, Lumbago 724.2 and Obesity, unspecified 278.00 [place] [id number] [place] [address] 73719- 8463 Jan, [place] [id number] [place] [address] 13536- 2459 Dec, Lumbago 724.2 and Obesity, unspecified 278.00 [place] [id number] [place] [address] 12655- 3394 Nov, Lumbago 724.2 and Obesity, unspecified 278.00 [place] [id number] [place] [address] 52828- 5605 Oct, Lumbago 724.2 and Obesity, unspecified 278.00 [place] [id number] [place] [address] 82015- 7963 September, Otitis externa of left ear 380.10 ; Ear pain 388.70 and Tooth decayed 521.00 [place] [id number] [place] [address] 57371- 1790 September, Lumbago 724.2 ; Obesity, unspecified 278.00 ; Other chronic pain 338.29 and Unspecified symptom associated with female genital organs 625.9 [place] [id number] [place] [address] 98079- 9754 Aug, [place] [id number] [place] [address] 13070- 6870 Aug, [facility] [id number] [place] [address] 39139- 7953 Jul, [place] [id number] [place] [address] 64463- 1003 Jul, [facility] [place] [facility] [address] [id number] [place] [address]- 7469 Jul, [facility] [place] [facility] [address] [id number] [place] [address]- 4193 Jul, [facility] [place] [facility] [address] [id number] [place] [address]- 0108 May, [facility] [place] [facility] [address] [id number] [place] [address]- 4503 May, [facility] [place] [facility] [address] [id number] [place] [address]- 9090 May, [facility] [place] [facility] [address] [id number] [place] [address]- 6262 May, [facility] [place] [facility] [address] [id number] [place] 8201 Apr, [facility] [place] [facility] [address] [id number] [place] [address]- 0120 Apr, [facility] [place] [facility] [address] [id number] [place] [address]- 8270 Mar, [facility] [place] [facility] [address] [id number] [place] [address]- 1188 Mar, [facility] [place] [facility] [address] [id number] [place] [address]- 8812 Feb, [facility] [place] [facility] [address] [id number] [place] [address]- 6759 Feb, [facility] [place] [facility] [address] [id number] [place] [address]- 9714 Jan, [facility] [place] [facility] [address] [id number] [place] [address]- 0559 Jan, [facility] [place] [facility] [address] [id number] [place] [address]- 5061 Dec, [facility] [place] [facility] [address] [facility] [id number] [place] [address]- 2006 Dec, [facility] [address] [id number] [place] [address]- 2774 Nov, [facility] [address] [id number] [place] [address]- 8146 Nov, [facility] [address] [facility] [id number] [place] [address]- 8286 Nov, [facility] [address] [id number] [place] [address]- 5776 Nov, [facility] [address] [facility] [id number] [place] [address]- 8239 Oct, [facility] [address] [facility] [id number] [place] [address]- 8936 Oct, [facility] [address] [place] [address]- 3412 Apr, [facility] [address] [facility] [id number] [place] [address]- 2320 Apr, [facility] [id number] [place] [place] [address]- 3959 Nov, [facility] [address] [id number] [address]- 8356 Nov, [facility] [address] [address]- 4536 Jul, [facility] [address] [facility] [id number] [place] [address]- 2296 Jul, [facility] [address] [facility] [id number] [place] [address]- 7806 Jan, [facility] [address] [facility] [id number] [place] [address]- 4636 Jul, IMMUNIZATIONS No Known Immunizations SOCIAL HISTORY Never Assessed REASON FOR VISIT 3 mo fu pain management-[facility], Last filled 01/06/2017, left ear feels like something is in it PLAN OF CARE Activity Details Follow Up 1 month weight 3 month pain Reason:wt/pain VITAL SIGNS Height 66 in 2017-01-27 Weight 207.5 lbs 2017-01-27 Temperature 97.4 degrees Fahrenheit 2017-01-27 Heart Rate 74 bpm 2017-01-27 Respiratory Rate 20 2017-01-27 BMI 33.49 kg/m2 2017-01-27 Blood pressure systolic 108 mmHg 2017-01-27 Blood pressure diastolic 70 mmHg 2017-01-27 MEDICATIONS Medication Instructions Dosage Frequency Start Date End Date Duration Status Hydrocodone-Acetaminophen 10-325 MG Orally every 8 hours PRN pain- Must last 28 days 1 Tablet Dec, 28 days Active Phentermine HCl 37.5 MG Orally Once a day 1 tablet 24h 28 days Active RESULTS Name Result Date Reference Range CBC w/ MANUAL DIFF 2017-01-27 WBC 10.2 3.4-10.8 RBC 5.26 3.77-5.28 Hemoglobin 15.5 11.1-15.9 Hematocrit 45.1 34.0-46.6 MCV 86 79-97 MCH 29.5 26.6-33.0 MCHC 34.4 31.5-35.7 RDW 13.3 12.3-15.4 Platelets 301 150-379 Neutrophils 59 Lymphs 36 Monocytes 3 Eos 0 Basos 2 Neutrophils Absolute 6.0 1.4-7.0 Lymphs (Absolute) 3.7 0.7-3.1 Monocytes(Absolute) 0.3 0.1-0.9 Eos (Absolute Value) 0.0 0.0-0.4 Baso(Absolute) 0.2 0.0-0.2 Differential Comment Note: RBC Comment Note: Normal Platelet Comment Note: Adequate Ultrasound : Soft Tissue (specify location) 2017-02-12 PROCEDURES Procedure Date Ordered Result Body Site MANUAL CELL COUNT, EACH Jan 27, 2017 VENIPUNCT, ROUTINE* Jan 27, 2017 INSTRUCTIONS MEDICATIONS ADMINISTERED No Known Medications [...]
--- OUTSIDE RECORDS SUMMARY | 2018-09-05 20:59 | XMS REPORT ---
Author Author FOSTER PRINCE [facility] Address [address] [place] [address] Care Team Providers Care Warp Knitting Machine Operator Name Role Phone SURESH FOSTER Unavailable PROBLEMS Type Condition ICD9-CM Code BYZ98-GS Code Onset Dates Condition Status SNOMED Code Problem Chronic pain syndrome G89.4 Active 605439141 Problem Long-term use of high-risk medication Z79.899 Active 919240725 Problem Low back pain M54.5 Active 393557733 Problem Obesity E66.9 Active 821410401 ALLERGIES No Information ENCOUNTERS Encounter Location Date Diagnosis [place] [id number] [address] Oct, [facility] [address] [place] [id number] [place] [address] 36452- 6398 September, [facility] [address] [address] September, Low back pain M54.5 and Obesity E66.9 [place] [address] [place] [id number] [place] [address] 27891- 6516 Aug, Low back pain M54.5 [facility] [address] [id number] [place] [address] 45027- 7011 Jul, Low back pain M54.5 [facility] [address] [address]- [address] Jul, [facility] [address] [address]- [address] Jul, Low back pain M54.5 ; Obesity E66.9 and Submandibular lymphadenopathy R59.0 [place] [address] [address]- [address] May, Low back pain M54.5 [facility] [address] [facility] [id number] [place] [address] 82348- 9493 Apr, Low back pain M54.5 [facility] [address] [facility] [id number] [place] [address] 65912- 6856 Mar, Low back pain M54.5 [facility] [address] [facility] [id number] [place] [address] 05671- 0827 Feb, Low back pain M54.5 [facility] [address] [facility] [id number] [place] [address] 06138- 9686 Feb, Low back pain M54.5 [facility] [address] [place] [id number] [place] [address] 61039- 4183 Jan, Low back pain M54.5 [facility] [address] [id number] [place] [address] 72271- 5843 Dec, Low back pain M54.5 ; Chronic pain syndrome G89.4 ; Anterior cervical adenopathy R59.0 and Overweight E66.3 [facility] [address] [id number] [place] [address] 33597- 3184 Dec, Low back pain M54.5 [facility] [address] [address] 8[address] Nov, Low back pain M54.5 [facility] [address] [place] [id number] [place] [address] 77164- 9843 Oct, Low back pain M54.5 [facility] [address] [facility] [id number] [place] [address] 31546- 2089 September, Low back pain M54.5 ; Chronic pain syndrome G89.4 and Obesity E66.9 [facility] [address] [place] [id number] [address] 6[address] September, Low back pain M54.5 [facility] [address] [id number] [address] 67[address] Aug, Low back pain M54.5 [facility] [address] [id number] [place] [address] 13463- 3562 Jul, Low back pain M54.5 [facility] [address] [id number] [place] [address] 88062- 6029 Jul, Anterior cervical adenopathy R59.0 [facility] [address] [id number] [place] [address] 94498- 0464 Jul, [facility] [address] [place] [id number] [place] [address] 64309- 3376 Jul, Low back pain M54.5 ; Obesity E66.9 and Anterior cervical adenopathy R59.0 [facility] [address] [place] [id number] [place] [address] 44527- 8537 May, [facility] [address] [id number] [place] [address] 28494- 7982 Apr, [facility] [address] [id number] [place] [address] 29578- 6685 Mar, Low back pain M54.5 and Obesity E66.9 [facility] [address] [place] [id number] [place] [address] 87410- 1094 Feb, [facility] [address] [id number] [place] [address] 39515- 6502 Jan, [facility] [address] [place] [id number] [place] [address] 84398- 1688 Jan, [facility] [address] [id number] [place] [address] 43718- 1557 Dec, Low back pain M54.5 and Obesity E66.9 [facility] [address] [place] [id number] [place] [address] 68224- 1132 Nov, Low back pain M54.5 and Obesity E66.9 [facility] [address] [place] [id number] [place] [address] 14660- 5538 Oct, Low back pain M54.5 and Obesity E66.9 [facility] [address] [place] [id number] [place] [address] 94184- 7474 Oct, Low back pain M54.5 ; Obesity E66.9 and Long-term use of high-risk medication Z79.899 [facility] [address] 08743- 9559 September, [place] [address] 46180- 7941 September, Low back pain M54.5 ; Obesity E66.9 and Otitis externa of left ear H60.92 [facility] [address] [place] [id number] [place] [address] 10037- 2168 Jul, [place] [address] 52758- 2719 Jul, [facility] [address] [place] [id number] [place] [address] 26732- 9055 Jul, Low back pain M54.5 and Obesity E66.9 [facility] [address] [place] [id number] [place] [address] 86314- 4257 May, Low back pain M54.5 ; Obesity E66.9 and History of long- term use of multiple prescription drugs Z92.29 [facility] [address] [place] [id number] [place] [address] [id number] Apr, Encounter for dental examination Z01.20 [facility] [address] [place] [id number] [place] [address] [id number] Apr, Encounter for dental examination Z01.20 [facility] [address] [id number] [place] [address] 16889- 9176 Apr, [facility] [address] [id number] [place] [address] 70945- 8488 Apr, Low back pain M54.5 and Obesity E66.9 [place] [id number] [place] [address] 28998- 3240 Mar, Low back pain M54.5 and Obesity E66.9 [facility] [address] [place] [id number] [place] [id number]- [address] Feb, Lumbago 724.2 and Obesity, unspecified 278.00 [place] [address] [id number] [place] [address] 41379- 0738 Jan, Unspecified episodic mood disorder 296.90 and Anxiety state , unspecified 300.00 [place] [address] [id number] [place] [address] 10950- 0019 Jan, Lumbago 724.2 and Obesity, unspecified 278.00 [place] [address] [place] [id number] [place] [address] 15551- 4699 Jan, [place] [address] [place] [id number] [place] [address] 67006- 6933 Dec, Lumbago 724.2 and Obesity, unspecified 278.00 [place] [address] [id number] [place] [address] 53329- 1125 Nov, Lumbago 724.2 and Obesity, unspecified 278.00 [place] [address] [id number] [place] [address] 12545- 5655 Oct, Lumbago 724.2 and Obesity, unspecified 278.00 [place] [address] [place] [id number] [place] [address] 27435- 1007 September, Otitis externa of left ear 380.10 ; Ear pain 388.70 and Tooth decayed 521.00 [place] [address] [place] [id number] [place] [address] 50597- 3022 September, Lumbago 724.2 ; Obesity, unspecified 278.00 ; Other chronic pain 338.29 and Unspecified symptom associated with female genital organs 625.9 [place] [address] [place] [id number] [place] [address]- 8339 14 Aug, 2014 [facility] [address] [id number] [place] [address]- 3582 Aug, [facility] [place] [facility] [address] [id number] [place] [address]- 3926 Jul, [facility] [place] [facility] [address] [id number] [place] [address]- 2950 Jul, [facility] [place] [facility] [address] [id number] [place] [address]- 2444 Jul, [facility] [place] [facility] [address] [id number] [place] [address]- 9107 Jul, [facility] [place] [facility] [address] [id number] [place] [address]- 8665 May, [facility] [place] [facility] [address] [id number] [place] [address]- 6948 May, [facility] [place] [facility] [address] [id number] [place] [address]- 1409 May, [facility] [place] [facility] [address] [id number] [place] [address]- 2744 May, [facility] [address] [id number] [place] [address]- 1829 Apr, [facility] [place] [facility] [address] [id number] [place] [address]- 6912 Apr, [facility] [place] [facility] [address] [id number] [place] [address]- 1902 Mar, [facility] [place] [facility] [address] [id number] [place] [address]- 1777 Mar, [facility] [place] [facility] [address] [id number] [place] [address]- 2796 Feb, [facility] [place] [facility] [address] [id number] [place] [address]- 8509 Feb, [facility] [place] [facility] [address] [id number] [place] [address]- 5566 Jan, [facility] [place] [facility] [address] [id number] [place] [address]- 3898 Jan, [facility] [place] [facility] [address] [id number] [place] [address]- 7406 Dec, [facility] [place] [facility] [address] [id number] [place] [address]- 3312 Dec, [facility] [place] [facility] [address] [id number] [place] [address]- 2355 Nov, [facility] [place] [facility] [address] [id number] [place] [address]- 0300 Nov, [facility] [place] [facility] [address] [id number] [place] [address]- 3152 Nov, [facility] [place] [facility] [address] [id number] [place] [address]- 8128 Nov, [facility] [place] [facility] [address] [id number] [place] [address]- 6826 Oct, [facility] [place] [facility] [address] [id number] [place] [address]- 1814 Oct, [facility] [place] [facility] [address] [id number] [place] [address]- 6437 Apr, [facility] [place] [facility] [address] [id number] [place] [address]- 4514 Apr, [facility] [place] [facility] [address] [id number] [place] [address]- 6615 Nov, [facility] [place] [facility] [address] [id number] [place] [address]- 6366 Nov, [facility] [place] [facility] [address] [id number] [place] [address]- 8145 Jul, [facility] [place] [facility] [address] [id number] [place] [address]- 9217 Jul, [facility] [address] [facility] [id number] [place] [address]- 2533 Jan, [facility] [address] [facility] [id number] [place] [address]24 Jul, IMMUNIZATIONS No Known Immunizations SOCIAL HISTORY [...]
--- OUTSIDE RECORDS SUMMARY | 2018-09-05 20:59 | XMS REPORT ---
Author Author FOSTER PRINCE [facility] [employer] Address Unknown Phone Unavailable Care Team Providers Care Raw Scales Operator Name Role Phone FOSTER PRINCE CP Unavailable Allergies, Adverse Reactions, Alerts Substance Reaction Event Type N.K.D.A. Info Not Available Non Drug Allergy Problems Problem Type Condition Code Onset Dates Condition Status Problem Obesity E66.9 Active Problem Anxiety state, unspecified 300.00 Active Problem Low back pain M54.5 Active Assessment Low back pain M54.5 Active Assessment Obesity E66.9 Active Medications Medication Code System Code Instructions Start Date End Date Status Dosage Hydrocodone-Acetaminophen [facility] [address]-13 10-325 MG Orally every 8 hours PRN pain 1 Tablet Diethylpropion HCl [facility] [address]-92 25 MG Orally Three times a day 1 tablet before meals Procedures Procedure Coding System Code Date Office Visit, Est Pt., Level 3 CPT-4 93038 May 02, 2015 Vital Signs Date/Time: May 02, 2015 Temperature 97.2 F Weight 204.7 lbs Height 66 in BMI 33.04 Index Blood Pressure Diastolic 80 mmHg Blood Pressure Systolic 118 mmHg Cardiac Monitoring Heart Rate 80 bpm Results No Known Results Summary Purpose eClinical[employer] Submission
--- OUTSIDE RECORDS SUMMARY | 2018-09-05 20:59 | XMS REPORT ---
Author DARINEL Zavala [facility] [employer] Address Unknown Phone Unavailable Care Team Providers Care Farm Planner Name Role Phone DARINEL SPAIN CP Unavailable Allergies No Known Allergies Problems Problem Type Condition Code Onset Dates Condition Status Problem History of long-term use of multiple prescription drugs Z92.29 Active Problem Encounter for dental examination Z01.20 Active Problem Long-term use of high-risk medication Z79.899 Active Problem Anxiety state, unspecified 300.00 Active Problem Low back pain M54.5 Active Problem Obesity E66.9 Active Medications No Known Medications Results No Known Results Summary Purpose eClinicalWorks Submission
--- OUTSIDE RECORDS SUMMARY | 2018-09-05 21:00 | XMS REPORT ---
Author Author FOSTER PRINCE [facility] [employer] Address Unknown Phone Unavailable Care Team Providers Care Care Center Manager Name Role Phone FOSTER PRINCE CP Unavailable Allergies, Adverse Reactions, Alerts Substance Reaction Event Type N.K.D.A. Info Not Available Non Drug Allergy Problems Problem Type Condition Code Onset Dates Condition Status Assessment History of long-term use of multiple prescription drugs Z92.29 Active Problem Encounter for dental examination Z01.20 Active Problem Low back pain M54.5 Active Problem History of long-term use of multiple prescription drugs Z92.29 Active Assessment Low back pain M54.5 Active Assessment Obesity E66.9 Active Problem Obesity E66.9 Active Problem Anxiety state, unspecified 300.00 Active Medications Medication Code System Code Instructions Start Date End Date Status Dosage Hydrocodone-Acetaminophen [facility] [address]-88 10-325 MG Orally every 8 hours PRN pain- Must last 28 days 1 Tablet Phentermine HCl [facility] [address]-27 37.5 MG Orally Once a day Jul 03, 2015 1 tablet Procedures Procedure Coding System Code Date Office Visit, Est Pt., Level 3 CPT-4 56234 Jun 05, 2015 No Charge CPT-4 01779 Jun 05, 2015 Vital Signs Date/Time: Jun 05, 2015 Temperature 98.7 F Weight 204.6 lbs Height 66 in BMI 33.02 Index Blood Pressure Diastolic 78 mmHg Blood Pressure Systolic 118 mmHg Cardiac Monitoring Heart Rate 78 bpm Results No Known Results Summary Purpose eClinicalWorks Submission
--- OUTSIDE RECORDS SUMMARY | 2018-09-05 21:00 | XMS REPORT ---
Author Author FOSTER PRINCE [facility] Address [address] [place] [address] Care Team Providers Care Aluminum Pourer Name Role Phone FOSTER PRINCE Unavailable PROBLEMS Type Condition ICD9-CM Code GOK60-JG Code Onset Dates Condition Status SNOMED Code Problem Chronic pain syndrome G89.4 Active 356534690 Problem Long-term use of high-risk medication Z79.899 Active 243169673 Problem Low back pain M54.5 Active 721116490 Problem Obesity E66.9 Active 972047460 ALLERGIES No Information ENCOUNTERS Encounter Location Date Diagnosis [place] [id number] [place] [address] 66435- 8907 Oct, Low back pain M54.5 [facility] [id number] [place] [address] 50482- 2001 September, Low back pain M54.5 and Obesity E66.9 [place] [id number] [place] [address] 80707- 3123 Aug, Low back pain M54.5 [place] [id number] [place] [address] 74933- 6735 Jul, Low back pain M54.5 [facility] [id number] [place] [address] 03885- 7528 Jul, [facility] [address] [address]- 2013 Jul, Low back pain M54.5 ; Obesity E66.9 and Submandibular lymphadenopathy R59.0 [facility] [id number] [place] [address] 89004- 9044 May, Low back pain M54.5 [place] [address] [address] Apr, Low back pain M54.5 [facility] [id number] [place] [address] 17861- 5084 Mar, Low back pain M54.5 [facility] [id number] [place] [address] 98436- 9672 Feb, Low back pain M54.5 [facility] [id number] [place] [address] 64721- 5055 Feb, Low back pain M54.5 [facility] [id number] [place] [address] 71865- 3591 Jan, Low back pain M54.5 [facility] [id number] [place] [address] 41098- 9271 Dec, Low back pain M54.5 ; Chronic pain syndrome G89.4 ; Anterior cervical adenopathy R59.[address] [facility] [id number] [place] [address] 21578- 4649 Dec, Low back pain M54.5 [facility] [id number] [place] [address] 44069- 1981 Nov, Low back pain M54.5 [facility] [id number] [place] [address] 35751- 3368 Oct, Low back pain M54.5 [facility] [id number] [place] [address] 99224- 4592 September, Low back pain M54.5 ; Chronic pain syndrome G89.[address] [facility] [id number] [place] [address] 53743- 4954 September, Low back pain M54.5 [facility] [id number] [place] [address] 94636- 8168 Aug, Low back pain M54.5 [facility] [address] [facility] [id number] [address] 3674 Jul, Low back pain M54.5 [facility] [id number] [place] [address] 33516- 3116 Jul, Anterior cervical adenopathy R59.0 [facility] [id number] [place] [address] 39732- 8252 Jul, [facility] [id number] [place] [address] 06577- 6391 Jul, Low back pain M54.5 ; Obesity E66.9 and Anterior cervical adenopathy R59.0 [facility] [id number] [place] [address] 73062- 1128 May, [facility] [id number] [place] [address] 27903- 1248 Apr, [facility] [id number] [place] [address] 39679- 0425 Mar, Low back pain M54.[address] [facility] [id number] [place] [address] 52865- 2515 Feb, [facility] [id number] [place] [address] 43307- 0846 Jan, [facility] [id number] [place] [address] 97326- 3985 Jan, [facility] [id number] [place] [address] 57393- 4185 Dec, Low back pain M54.[address] [facility] [id number] [place] [address] 25613- 8988 Nov, Low back pain M54.[address] [facility] [id number] [place] [address] 14395- 5288 Oct, Low back pain M54.[address] [facility] [id number] [place] [address] 50856- 7074 Oct, Low back pain M54.5 ; Obesity E66.9 and Long-term use of high-risk medication Z79.899 [facility] [id number] [place] [address] 17645- 1341 September, [facility] [address] 82136- 1538 September, Low back pain M54.5 ; Obesity E66.9 and Otitis externa of left ear H60.92 [facility] [address] 74694- 7445 Jul, [facility] [address] 37028- 5302 Jul, [facility] [address] 83301- 4863 Jul, Low back pain M54.[address] [facility] [id number] [place] [address] 85015- 8332 May, Low back pain M54.5 ; Obesity E66.9 and History of long- term use of multiple prescription drugs Z92.29 [facility] [address] [place] [address] [phone] Apr, Encounter for dental examination Z01.20 [facility] [id number] [place] [address] [phone] Apr, Encounter for dental examination Z01.20 [facility] [id number] [place] [address] 58852- 6220 Apr, [facility] [id number] [place] [address] 26231- 3584 Apr, Low back pain M54.[address] [facility] [id number] [place] [address] 82201- 9360 Mar, Low back pain M54.5 and Obesity E66.9 [place] [place] [id number] [place] [address] 09009- 4481 Feb, Lumbago 724.2 and Obesity, unspecified 278.00 [place] [id number] [place] [address] 55811- 3075 Jan, Unspecified episodic mood disorder 296.90 and Anxiety state , unspecified 300.00 [place] [id number] [place] [address] 31184- 3217 Jan, Lumbago 724.2 and Obesity, unspecified 278.00 [place] [place] [id number] [place] [address] 32665- 3266 Jan, [place] [id number] [place] [address] 39897- 7458 Dec, Lumbago 724.2 and Obesity, unspecified 278.00 [place] [id number] [place] [address] 56989- 1562 Nov, Lumbago 724.2 and Obesity, unspecified 278.00 [place] [id number] [place] [address] 52152- 4657 Oct, Lumbago 724.2 and Obesity, unspecified 278.00 [place] [id number] [place] [address] 34716- 7655 September, Otitis externa of left ear 380.10 ; Ear pain 388.70 and Tooth decayed 521.00 [place] [id number] [place] [address] 15376- 3748 September, Lumbago 724.2 ; Obesity, unspecified 278.00 ; Other chronic pain 338.29 and Unspecified symptom associated with female genital organs 625.9 [place] [id number] [place] [address] 49547- 2161 Aug, [facility] [place] [facility] [address] [id number] [place] [address]- 9667 Aug, [facility] [place] [facility] [address] [id number] [place] [address]- 7061 Jul, [facility] [place] [facility] [address] [id number] [place] [address]- 9714 Jul, [facility] [place] [facility] [address] [id number] [place] [address]- 3796 Jul, [facility] [place] [facility] [address] [id number] [place] [address]- 9384 Jul, [facility] [place] [facility] [address] [id number] [place] [address]- 6498 May, [facility] [place] [facility] [address] [id number] [place] [address]- 0202 May, [facility] [place] [facility] [address] [id number] [place] [address]- 7692 May, [facility] [place] [facility] [address] [id number] [place] [address]- 2342 May, [facility] [place] [facility] [address] [id number] [place] [address]- 9466 Apr, [facility] [place] [facility] [address] [id number] [place] [address]- 0273 Apr, [facility] [place] [facility] [address] [id number] [address]- 7457 Mar, [facility] [place] [facility] [address] [id number] [place] [address]- 5870 Mar, [facility] [place] [facility] [address] [id number] [place] [address]- 9005 Feb, [facility] [place] [facility] [address] [id number] [place] [address]- 3246 Feb, [facility] [place] [facility] [address] [id number] [place] [address]- 1966 Jan, [facility] [place] [facility] [address] [id number] [place] 2059 Jan, [facility] [place] [facility] [address] [id number] [place] [address]- 9018 Dec, [facility] [place] [facility] [address] [id number] [place] [address]- 8414 Dec, [facility] [place] [facility] [address] [id number] [place] [address]- 1704 Nov, [facility] [place] [facility] [address] [id number] [place] [address]- 4481 Nov, [facility] [place] [facility] [address] [id number] [place] [address]- 0345 Nov, [facility] [place] [facility] [address] [id number] [place] [address]- 2112 Nov, [facility] [place] [facility] [address] [id number] [place] [address]- 6416 Oct, [facility] [place] [facility] [address] [id number] [place] [address]- 1027 Oct, [facility] [place] [facility] [address] [id number] [place] [address]- 4350 Apr, [facility] [place] [facility] [address] [id number] [place] [address]- 5840 Apr, [facility] [place] [facility] [address] [id number] [place] [address]- 3188 Nov, [facility] [place] [facility] [address] [id number] [place] [address]- 1654 Nov, [facility] [place] [facility] [address] [id number] [place] [address]- 9988 Jul, [facility] [place] [facility] [address] [id number] [place] [address]- 4536 Jul, [facility] [place] [facility] [address] [facility] [id number] [place] [address]- 1652 13 Jan, 2011 [facility] [address] [facility] [id number], [place] [address]- 1823 11 Jul, 2010 IMMUNIZATIONS No Known Immunizations SOCIAL HISTORY Never Assessed REASON FOR VISIT Controlled Med Refill PLAN OF CARE VITAL SIGNS MEDICATIONS Medication Instructions Dosage Frequency Start Date End Date Duration Status Hydrocodone-Acetaminophen 10-325 MG Orally every 8 hours PRN pain- Must last 28 days 1 Tablet May, 28 days Active RESULTS No Results PROCEDURES No Known procedures INSTRUCTIONS MEDICATIONS ADMINISTERED No Known Medications MEDICAL (GENERAL) HISTORY Type Description Date Medical History chronic pain Medical History obesity Medical History hernia Medical History headache Medical History PCOS (Polycystic Ovary Syndrome) Surgical History cholecystectomy Begrer) 02/2008 Surgical History hernia repair-umbilical 02/2008 Surgical History partial hysterectomy (Александр) 08/2013 Surgical History section 2007,2012,2013 Surgical History carpal tunnel release (B) Surgical History salpingectomy (R) r/t ectopic Hospitalization History Surgery(s)/Childbirth(s) only
--- OUTSIDE RECORDS SUMMARY | 2018-09-05 21:00 | XMS REPORT ---
Author Author FOSTER PRINCE [facility] Address [address] [place] [address] Care Team Providers Care Investor Relations Associate Name Role Phone FOSTER PRINCE Unavailable PROBLEMS Type Condition ICD9-CM Code [id number] Code Onset Dates Condition Status SNOMED Code Problem Long-term use of high-risk medication Z79.899 Active 239297587 Problem History of long-term use of multiple prescription drugs Z92.29 Active 321445332 Problem Obesity E66.9 Active 901787955 Problem Anxiety state, unspecified 300.00 Active 720284717 Problem Encounter for dental examination Z01.20 Active 206665814 Problem Low back pain M54.5 Active 190571925 ALLERGIES Unknown Allergies SOCIAL HISTORY No smoking Hx information available PLAN OF CARE VITAL SIGNS MEDICATIONS Unknown Medications RESULTS No Results PROCEDURES No Known procedures IMMUNIZATIONS No Known Immunizations
--- OUTSIDE RECORDS SUMMARY | 2018-09-05 21:00 | XMS REPORT ---
Author Author FOSTER PRINCE Organization [employer] Address Unknown Phone Unavailable Care Team Providers Care Brazer Production Line Name Role Phone FOSTER PRINCE CP Unavailable Allergies, Adverse Reactions, Alerts Substance Reaction Event Type N.K.D.A. Info Not Available Non Drug Allergy Problems Problem Type Condition Code Onset Dates Condition Status Assessment Obesity E66.9 Active Problem History of long-term use of multiple prescription drugs Z92.29 Active Problem Encounter for dental examination Z01.20 Active Problem Long-term use of high-risk medication Z79.899 Active Problem Anxiety state, unspecified 300.00 Active Assessment Low back pain M54.5 Active Problem Low back pain M54.5 Active Problem Obesity E66.9 Active Medications Medication Code System Code Instructions Start Date End Date Status Dosage Phentermine HCl [facility] [address]-14 37.5 MG Orally Once a day 1 tablet Hydrocodone-Acetaminophen [facility] [address]-58 10-325 MG Orally every 8 hours PRN pain- Must last 28 days 1 Tablet Procedures Procedure Coding System Code Date Office Visit, Est Pt., Level 3 CPT-4 20107 December 24, 2015 Vital Signs Date/Time: December 24, 2015 Cardiac Monitoring Heart Rate 80 bpm Weight 196.6 lbs Height 66 in Blood Pressure Diastolic 80 mmHg Blood Pressure Systolic 122 mmHg Results No Known Results Summary Purpose [employer] Submission
--- OUTSIDE RECORDS SUMMARY | 2018-09-05 21:00 | XMS REPORT ---
Author Author FOSTER PRINCE Organization [employer] Address Unknown Phone Unavailable Care Team Providers Care Mine Patrol Name Role Phone FOSTER PRINCE CP Unavailable Allergies No Known Allergies Problems Problem Type Condition Code Onset Dates Condition Status Problem Obesity E66.9 Active Problem Anxiety state, unspecified 300.00 Active Problem Low back pain M54.5 Active Medications Medication Code System Code Instructions Start Date End Date Status Dosage Hydrocodone-Acetaminophen [facility] [address]-41 10-325 MG Orally every 8 hours PRN pain-appt needed before next refill 1 Tablet Phentermine HCl [facility] [address]-62 37.5 MG Orally Once a day- appt needed before next refill 1 tablet Results No Known Results Summary Purpose [employer] Submission
--- OUTSIDE RECORDS SUMMARY | 2018-09-05 21:00 | XMS REPORT ---
Author Author FOSTER PRINCE [facility] Address [address] [place] [address] Care Team Providers Care Station Baggage Agent Name Role Phone FOSTER PRINCE Unavailable PROBLEMS Type Condition ICD9-CM Code [id number] Code Onset Dates Condition Status SNOMED Code Problem Anxiety state, unspecified 300.00 Active 528659220 Problem Anterior cervical adenopathy R59.0 Active 910872909 Problem Chronic pain syndrome G89.4 Active 654820343 Problem Low back pain M54.5 Active 906060009 Problem Obesity E66.9 Active 003199257 Problem Long-term use of high-risk medication Z79.899 Active 080302818 Problem History of long-term use of multiple prescription drugs Z92.29 Active 625991737 ALLERGIES No Known Allergies SOCIAL HISTORY Never Assessed PLAN OF CARE Activity Details Follow Up 4 Weeks Reason:weight lymph node VITAL SIGNS Height 66 in 2016-07-09 Weight 206.1 lbs 2016-07-09 Temperature 98.2 degrees Fahrenheit 2016-07-09 Heart Rate 88 bpm 2016-07-09 Respiratory Rate 20 2016-07-09 BMI 33.26 kg/m2 2016-07-09 Blood pressure systolic 120 mmHg 2016-07-09 Blood pressure diastolic 78 mmHg 2016-07-09 MEDICATIONS Medication Instructions Dosage Frequency Start Date End Date Duration Status Hydrocodone-Acetaminophen 10-325 MG Orally every 8 hrs-PRN pain-MUST LAST 28 DAYS 1 tablet as needed May, Active Hydrocodone-Acetaminophen 10-325 MG Orally every 8 hours PRN pain- Must last 28 days 1 Tablet Active Phentermine HCl 37.5 MG Orally Once a day 1 tablet 24h 28 days Active Augmentin 875-125 MG Orally every 12 hrs 1 tablet 12h Jul,Jul 10 day(s) Active RESULTS No Results PROCEDURES No Known [...]
--- OUTSIDE RECORDS SUMMARY | 2018-09-05 21:00 | XMS REPORT ---
Author Author FOSTER PRINCE [facility] Address [address] [place] [address] Care Team Providers Care Consumer Services Consultant Name Role Phone FOSTER PRINCE Unavailable PROBLEMS Type Condition ICD9-CM Code SIR29-RB Code Onset Dates Condition Status SNOMED Code Problem Anxiety state, unspecified 300.00 Active 863057838 Problem Anterior cervical adenopathy R59.0 Active 175292620 Problem Chronic pain syndrome G89.4 Active 943177075 Problem Low back pain M54.5 Active 567974931 Problem Obesity E66.9 Active 039987555 Problem Long-term use of high-risk medication Z79.899 Active 406087350 Problem History of long-term use of multiple prescription drugs Z92.29 Active 439353048 ALLERGIES No Information SOCIAL HISTORY Never Assessed PLAN OF CARE VITAL SIGNS MEDICATIONS Unknown Medications RESULTS Name Result Date Reference Range CBC 2016-08-06 WBC 9.6 3.4-10.8 RBC 5.12 3.77-5.28 Hemoglobin 15.0 11.1-15.9 Hematocrit 43.2 34.0-46.6 MCV 84 79-97 MCH 29.3 26.6-33.0 MCHC 34.7 31.5-35.7 RDW 13.7 12.3-15.4 Platelets 258 150-379 Neutrophils 58 Lymphs 30 Monocytes 9 Eos 1 Basos 1 Immature Cells Neutrophils (Absolute) 5.7 1.4-7.0 Lymphs (Absolute) 2.9 0.7-3.1 Monocytes(Absolute) 0.9 0.1-0.9 Eos (Absolute) 0.1 0.0-0.4 Baso (Absolute) 0.1 0.0-0.2 Immature Granulocytes 1 Immature Grans (Abs) 0.1 0.0-0.1 NRBC Hematology Comments: CMP 2016-08-06 Glucose, Serum 91 65-99 BUN 9 6-20 Creatinine, Serum 0.93 0.57-1.00 eGFR If NonAfricn Am 79 >59 eGFR If Africn Am 91 >59 BUN/Creatinine Ratio 10 8-20 Sodium, Serum 141 134-144 Potassium, Serum 5.0 3.5-5.2 Chloride, Serum 102 96-106 Carbon Dioxide, Total 26 18-29 Calcium, Serum 9.0 8.7-10.2 Protein, Total, Serum 6.7 6.0-8.5 Albumin, Serum 4.0 3.5-5.5 Globulin, Total 2.7 1.5-4.5 A/G Ratio 1.5 1.1-2.5 Bilirubin, Total 0.4 0.0-1.2 Alkaline Phosphatase, S 73 39-117 AST (SGOT) 20 0-40 ALT (SGPT) 30 0-32 PROCEDURES Procedure Date Ordered Result Body Site COMPLETE CBC W/AUTO DIFF WBC August 06, 2016 COMPREHEN METABOLIC PANEL August 06, 2016 VENIPUNCT, ROUTINE* August 06, 2016 IMMUNIZATIONS No Known Immunizations MEDICAL (GENERAL) HISTORY [...]
--- OUTSIDE RECORDS SUMMARY | 2018-09-05 21:00 | XMS REPORT ---
Author Author FOSTER PRINCE [facility] Address [address] [place] [address] Care Team Providers Care Manager Ct Name Role Phone FOSTER PRINCE Unavailable PROBLEMS Type Condition ICD9-CM Code [id number] Code Onset Dates Condition Status SNOMED Code Problem Long-term use of high-risk medication Z79.899 Active 140418134 Problem History of long-term use of multiple prescription drugs Z92.29 Active 223284265 Problem Obesity E66.9 Active 174618250 Problem Anxiety state, unspecified 300.00 Active 388143454 Problem Encounter for dental examination Z01.20 Active 150113458 Problem Low back pain M54.5 Active 961909795 ALLERGIES Unknown Allergies SOCIAL HISTORY No smoking Hx information available PLAN OF CARE VITAL SIGNS MEDICATIONS Medication Instructions Dosage Frequency Start Date End Date Duration Status Hydrocodone-Acetaminophen 10-325 MG Orally every 8 hours PRN pain- Must last 28 days 1 Tablet Active RESULTS No Results PROCEDURES No Known procedures IMMUNIZATIONS No Known Immunizations
--- OUTSIDE RECORDS SUMMARY | 2018-09-05 21:00 | XMS REPORT ---
Author Author FOSTER PRINCE [facility] Address [address] [place] [address] Care Team Providers Care Assistant Construction Superintendent Name Role Phone FOSTER PRINCE Unavailable PROBLEMS Type Condition ICD9-CM Code VNN68-BS Code Onset Dates Condition Status SNOMED Code Problem Anxiety state, unspecified 300.00 Active 718075215 Problem Anterior cervical adenopathy R59.0 Active 824084098 Problem Chronic pain syndrome G89.4 Active 313469753 Problem Low back pain M54.5 Active 156743630 Problem Obesity E66.9 Active 996968742 Problem Long-term use of high-risk medication Z79.899 Active 584276262 Problem History of long-term use of multiple prescription drugs Z92.29 Active 134795339 ALLERGIES No Information SOCIAL HISTORY Never Assessed [...]
--- OUTSIDE RECORDS SUMMARY | 2018-09-05 21:01 | XMS REPORT ---
Author Author FOSTER PRINCE Organization [employer] Address Unknown Phone Unavailable Care Team Providers Care Textile Conversion Manager Name Role Phone FOSTER PRINCE CP [...] Start Date End Date Status Dosage Hydrocodone-Acetaminophen [facility] [address]-81 10-325 MG Orally every 8 hours PRN pain- Must last 28 days 1 Tablet Phentermine HCl [facility] [address]-15 37.5 MG Orally Once a day 1 tablet Procedures Procedure Coding System Code Date Office Visit, Est Pt., Level 3 CPT-4 22027 Jan 23, 2016 Vital Signs Date/Time: Jan 23, 2016 Cardiac Monitoring Heart Rate 82 bpm Weight 198.9 lbs Height 66 in BMI 32.10 Index Blood Pressure Diastolic 78 mmHg Blood Pressure Systolic 114 mmHg Results No Known Results Summary Purpose [employer] Submission
--- OUTSIDE RECORDS SUMMARY | 2018-09-05 21:01 | XMS REPORT ---
Author Author FOSTER PRINCE Organization [employer] Address Unknown Phone Unavailable Care Team Providers Care Slot Manager Name Role Phone FOSTER PRINCE CP [...] Date End Date Status Dosage Phentermine HCl [facility] [address]-68 37.5 MG Orally Once a day 1 tablet Hydrocodone-Acetaminophen [facility] [address]-81 10-325 MG Orally every 8 hours PRN pain- Must last 28 days 1 Tablet Procedures Procedure Coding System Code Date Office Visit, Est Pt., Level 3 CPT-4 97024 Apr 15, 2016 Vital Signs Date/Time: Apr 15, 2016 Cardiac Monitoring Heart Rate 80 bpm Weight 198 lbs Height 66 in BMI 31.95 Index Blood Pressure Diastolic 80 mmHg Blood Pressure Systolic 124 mmHg Results No Known Results Summary Purpose [employer] Submission
--- OUTSIDE RECORDS SUMMARY | 2018-09-05 21:01 | XMS REPORT ---
Author Author FOSTER PRINCE [facility] [employer] Address Unknown Phone Unavailable Care Team Providers Care Cement Conveyor Operator Name Role Phone FOSTER PRINCE CP [...] Start Date End Date Status Dosage Hydrocodone-Acetaminophen [facility] [address]-52 10-325 MG Orally every 8 hours PRN pain 1 Tablet Diethylpropion HCl [facility] [address]-50 25 MG Orally Three times a day Mar 1 tablet before meals Procedures Procedure Coding System Code Date Office Visit, Est Pt., Level 3 CPT-4 79113 Apr 09, 2015 Vital Signs Date/Time: Apr 09, 2015 Temperature 98.9 F Weight 206.8 lbs Height 66 in BMI 33.37 Index Blood Pressure Diastolic 78 mmHg Blood Pressure Systolic 120 mmHg Cardiac Monitoring Heart Rate 82 bpm Results No Known Results Summary Purpose [employer] Submission
--- OUTSIDE RECORDS SUMMARY | 2018-09-05 21:01 | XMS REPORT ---
Author Author FOSTER PRINCE [facility] Address [address] [place] [address] Care Team Providers Care Detective Captain Name Role Phone FOSTER PRINCE Unavailable PROBLEMS Type Condition ICD9-CM Code [id number]-AL Code Onset Dates Condition Status SNOMED Code Problem Chronic pain syndrome G89.4 Active 325468808 Problem Long-term use of high-risk medication Z79.899 Active 097689616 Problem Low back pain M54.5 Active 160860250 Problem Obesity E66.9 Active 276804727 ALLERGIES No Information ENCOUNTERS Encounter Location Date Diagnosis [facility] [id number] [place] [address] 54971- 0397 Aug, Low back pain M54.5 [facility] [id number] [place] [address] 19624- 9538 Jul, Low back pain M54.5 [facility] [id number] [place] [address] 49442- 6246 Jul, [facility] [id number] [place] [address] 30025- 6198 Jul, Low back pain M54.5 ; Obesity E66.9 and Submandibular lymphadenopathy R59.0 [facility] [id number] [place] [address] 78988- 0211 May, Low back pain M54.5 [facility] [address] 38955- 9507 Apr, Low back pain M54.5 [facility] [id number] [place] [address] 58915- 0316 Mar, Low back pain M54.5 [facility] [id number] [place] [address] 74511- 5547 Feb, Low back pain M54.5 [facility] [id number] [place] [address] 40674- 8914 Feb, Low back pain M54.5 [facility] [id number] [place] [address] 88855- 5757 Jan, Low back pain M54.5 [facility] [id number] [place] [address] 74180- 9247 Dec, Low back pain M54.5 ; Chronic pain syndrome G89.4 ; Anterior cervical adenopathy R59.0 and Overweight E66.3 [facility] [id number] [place] [address] 78318- 1201 Dec, Low back pain M54.5 [facility] [id number] [place] [address] 48328- 2025 Nov, Low back pain M54.5 [facility] [id number] [place] [address] 05620- 7956 Oct, Low back pain M54.5 [facility] [id number] [place] [address] 57788- 8509 September, Low back pain M54.5 ; Chronic pain syndrome G89.4 and Obesity E66.9 [facility] [id number] [place] [address] 51376- 1520 September, Low back pain M54.5 [facility] [id number] [place] [address] 14218- 2167 Aug, Low back pain M54.5 [facility] [id number] [place] [address] 58907- 7643 Jul, Low back pain M54.5 [facility] [id number] [place] [address] 03195- 7333 Jul, Anterior cervical adenopathy R59.0 [facility] [id number] [place] [address] 50240- 2587 Jul, [facility] [id number] [place] [address] 03769- 7056 09 Jul, 2016 Low back pain M54.5 ; Obesity E66.9 and Anterior cervical adenopathy R59.0 [facility] [id number] [place] [address] 66100- 6139 May, [facility] [id number] [place] [address] 79303- 9712 Apr, [facility] [address] 76045- 8135 Mar, Low back pain M54.5 and Obesity E66.9 [facility] [id number] [place] [address] 82914- 0537 Feb, [facility] [id number] [place] [address] 33626- 9357 Jan, [facility] [id number] [place] [address] 45189- 1426 Jan, [facility] [id number] [place] [address] 61351- 0086 Dec, Low back pain M54.5 and Obesity E66.9 [facility] [id number] [place] [address] 28834- 4041 Nov, Low back pain M54.5 and Obesity E66.9 [facility] [id number] [place] [address] 89453- 0026 Oct, Low back pain M54.5 and Obesity E66.9 [facility] [id number] [place] [address] 33146- 4951 Oct, Low back pain M54.5 ; Obesity E66.9 and Long-term use of high-risk medication Z79.899 [facility] [address] [place] [address]- 1208 September, [facility] [id number] [place] [address] 45558- 5406 September, Low back pain M54.5 ; Obesity E66.9 and Otitis externa of left ear H60.92 [facility] [id number] [place] [address] 66930- 4066 Jul, [facility] [id number] [place] [address] 75377- 6801 Jul, [facility] [id number] [place] [address] 08012- 2607 Jul, Low back pain M54.5 and Obesity E66.9 [facility] [id number] [place] [address] 14578- 2378 May, Low back pain M54.5 ; Obesity E66.9 and History of long- term use of multiple prescription drugs Z92.29 [facility] [id number] [place] [address] [id number] Apr, Encounter for dental examination Z01.20 [facility] [id number] [place] [address] [id number] Apr, Encounter for dental examination Z01.20 [facility] [id number] [place] [address] 98967- 8511 Apr, [facility] [id number] [place] [address] 46350- 5794 Apr, Low back pain M54.5 and Obesity E66.9 [facility] [id number] [place] [address] 43788- 6444 Mar, Low back pain M54.5 and Obesity E66.9 [facility] [address] [place] [address] 02126- 2741 13 Feb, 2015 Lumbago 724.2 and Obesity, unspecified 278.00 [facility] [id number] [place] [address] 64976- 0227 Jan, Unspecified episodic mood disorder 296.90 and Anxiety state , unspecified 300.00 [facility] [id number] [place] [address] 43383- 5517 Jan, Lumbago 724.2 and Obesity, unspecified 278.00 [place] [id number] [place] [address] 61674- 9984 Jan, [facility] [id number] [place] [address] 73284- 6791 Dec, Lumbago 724.2 and Obesity, unspecified 278.00 [place] [id number] [place] [address] 62668- 1189 Nov, Lumbago 724.2 and Obesity, unspecified 278.00 [place] [id number] [place] [address] 09135- 7045 Oct, Lumbago 724.2 and Obesity, unspecified 278.00 [place] [id number] [place] [address] 77962- 1988 September, Otitis externa of left ear 380.10 ; Ear pain 388.70 and Tooth decayed 521.00 [place] [address] [place] [address] 92988- 2392 September, Lumbago 724.2 ; Obesity, unspecified 278.00 ; Other chronic pain 338.29 and Unspecified symptom associated with female genital organs 625.9 [place] [id number] [place] [address] 98499- 1704 Aug, [place] [id number] [place] [address] 39448- 9600 Aug, [facility] [id number] [place] [address] 43117- 8395 Jul, [place] [id number] [place] [address] 36504- 7436 Jul, [facility] [place] [facility] [address] [id number] [place] [address]- 1695 Jul, [facility] [place] [facility] [address] [id number] [place] [address]- 3961 Jul, [facility] [place] [facility] [address] [facility] [id number] [place] [address]- 5264 May, [facility] [place] [facility] [address] [id number] [place] [address]- 5470 May, [facility] [place] [facility] [address] [id number] [place] 4994 May, [facility] [place] [facility] [address] [id number] [place] [address]- 2981 May, [facility] [place] [facility] [address] [id number] [place] [address]- 8545 Apr, [facility] [place] [facility] [address] [id number] [place] [address]- 6323 Apr, [facility] [place] [facility] [address] [id number] [place] [address]- 0721 Mar, [facility] [place] [facility] [address] [id number] [place] [address]- 7880 Mar, [facility] [place] [facility] [address] [id number], [place] [address]- 7001 Feb, [facility] [place] [facility] [address] [id number], [place] [address]- 8079 Feb, [facility] [place] [facility] [address] [id number] [place] [address]- 8140 Jan, [facility] [place] [facility] [address] [id number] [place] [address]- 1645 Jan, [facility] [place] [facility] [address] [id number] [place] [address]- 6699 Dec, [facility] [place] [facility] [address] [facility] [id number] [place] [address]- 3855 Dec, [facility] [address] [facility] [id number] [place] [address]- 7508 Nov, [facility] [address] [facility] [id number] [place] [address]- 8864 Nov, [facility] [address] [facility] [id number], [place] [address]- 8074 Nov, [facility] [address] [facility] [id number] [place] [address]- 9613 Nov, [facility] [address] [facility] [id number] [place] [address]- 5996 Oct, [facility] [address] [facility] [id number] [place] [address]- 3179 Oct, [facility] [address] [address]- 3536 Apr, [facility] [address] [facility] [id number] 2590 Apr, [facility] [address] [address]- 8572 Nov, [facility] [address] [id number] [address]- 2437 Nov, [facility] [address] [id number] [address]- 6506 Jul, [facility] [address] [facility] [id number], [place] [address]- 6136 Jul, [facility] [address] [id number] [address]- 4246 Jan, [facility] [address] [facility] [id number], [place] [address]- 1046 Jul, IMMUNIZATIONS No Known Immunizations SOCIAL HISTORY Never Assessed REASON FOR VISIT Controlled Med Refill PLAN OF CARE VITAL SIGNS MEDICATIONS Medication Instructions Dosage Frequency Start Date End Date Duration Status Hydrocodone-Acetaminophen 10-325 MG Orally every 8 hours PRN pain- Must last 28 days 1 Tablet Feb, 28 days Active RESULTS No Results PROCEDURES [...]
--- OUTSIDE RECORDS SUMMARY | 2018-09-05 21:01 | XMS REPORT ---
Author Author FOSTER PRINCE [facility] Address [address] [place] [address] Care Team Providers Care Refiner Operator Name Role Phone FOSTER PRINCE Unavailable PROBLEMS Type Condition ICD9-CM Code POQ68-AU Code Onset Dates Condition Status SNOMED Code Problem Anxiety state, unspecified 300.00 Active 887489815 Problem Anterior cervical adenopathy R59.0 Active 947740360 Problem Chronic pain syndrome G89.4 Active 776258589 Problem Low back pain M54.5 Active 829462762 Problem Obesity E66.9 Active 648631077 Problem Long-term use of high-risk medication Z79.899 Active 204584081 Problem History of long-term use of multiple prescription drugs Z92.29 Active 738937111 ALLERGIES No Information SOCIAL HISTORY Never Assessed [...]
--- OUTSIDE RECORDS SUMMARY | 2018-09-05 21:01 | XMS REPORT ---
Author Author FOSTER PRINCE [facility] Address [address] [place] [address] Care Team Providers Care Saxophone Player Name Role Phone FSOTER PRINCE Unavailable PROBLEMS Type Condition ICD9-CM Code OCD51-BB Code Onset Dates Condition Status SNOMED Code Problem Long-term use of high-risk medication Z79.899 Active 596365369 Problem History of long-term use of multiple prescription drugs Z92.29 Active 277646878 Problem Obesity E66.9 Active 540466461 Problem Anxiety state, unspecified 300.00 Active 842442918 Problem Encounter for dental examination Z01.20 Active 123626201 Problem Low back pain M54.5 Active 693629130 ALLERGIES Unknown Allergies SOCIAL HISTORY No smoking Hx information available PLAN OF CARE VITAL SIGNS MEDICATIONS Medication Instructions Dosage Frequency Start Date End Date Duration Status Hydrocodone-Acetaminophen 10-325 MG Orally every 8 hours PRN pain- Must last 28 days 1 Tablet Active RESULTS No Results PROCEDURES No Known procedures IMMUNIZATIONS No Known Immunizations
--- OUTSIDE RECORDS SUMMARY | 2018-09-05 21:01 | XMS REPORT ---
Author Author FOSTER PRINCE [facility] Address [address] [place] [address] Care Team Providers Care Patrol Driver Name Role Phone FOSTER PRINCE Unavailable PROBLEMS Type Condition ICD9-CM Code NJM38-BR Code Onset Dates Condition Status SNOMED Code Problem Chronic pain syndrome G89.4 Active 659801365 Problem Long-term use of high-risk medication Z79.899 Active 846571031 Problem Low back pain M54.5 Active 560638642 Problem Obesity E66.9 Active 245024533 ALLERGIES No Information ENCOUNTERS Encounter Location Date Diagnosis [facility] [id number] [place] [address] 11710- 0585 Aug, Low back pain M54.5 [facility] [id number] [place] [address] 58042- 6478 Jul, Low back pain M54.5 [facility] [id number] [place] [address] 64493- 7528 Jul, [facility] [id number] [place] [address] 92848- 5532 Jul, Low back pain M54.5 ; Obesity E66.9 and Submandibular lymphadenopathy R59.0 [facility] [id number] [place] [address] 28180- 5916 May, Low back pain M54.5 [facility] [address] 16478- 2913 Apr, Low back pain M54.5 [facility] [id number] [place] [address] 65370- 3897 Mar, Low back pain M54.5 [facility] [id number] [place] [address] 32223- 9611 Feb, Low back pain M54.5 [facility] [id number] [place] [address] 19726- 1353 Feb, Low back pain M54.5 [facility] [id number] [place] [address] 15964- 6336 Jan, Low back pain M54.5 [facility] [id number] [place] [address] 36212- 6050 Dec, Low back pain M54.5 ; Chronic pain syndrome G89.4 ; Anterior cervical adenopathy R59.0 and Overweight E66.3 [facility] [id number] [place] [address] 70242- 2357 Dec, Low back pain M54.5 [facility] [id number] [place] [address] 99867- 5991 Nov, Low back pain M54.5 [facility] [id number] [place] [address] 90908- 9498 Oct, Low back pain M54.5 [facility] [id number] [place] [address] 72419- 3015 September, Low back pain M54.5 ; Chronic pain syndrome G89.4 and Obesity E66.9 [facility] [id number] [place] [address] 60490- 6225 September, Low back pain M54.5 [facility] [id number] [place] [address] 25743- 7294 Aug, Low back pain M54.5 [facility] [id number] [place] [address] 19885- 4355 Jul, Low back pain M54.5 [facility] [address] [place] [address] 43037- 0175 Jul, Anterior cervical adenopathy R59.0 [facility] [id number] [place] [address] 64092- 9221 Jul, [facility] [id number] [place] [address] 58262- 3652 09 Jul, 2016 Low back pain M54.5 ; Obesity E66.9 and Anterior cervical adenopathy R59.0 [facility] [id number] [place] [address] 46239- 0812 May, [facility] [id number] [place] [address] 06514- 4738 Apr, [facility] [address] 66037- 7901 Mar, Low back pain M54.5 and Obesity E66.9 [facility] [id number] [place] [address] 59583- 5890 Feb, [facility] [id number] [place] [address] 21451- 1384 Jan, [facility] [id number] [place] [address] 34686- 3389 Jan, [facility] [id number] [place] [address] 80344- 5826 Dec, Low back pain M54.5 and Obesity E66.9 [facility] [id number] [place] [address] 46693- 0953 Nov, Low back pain M54.5 and Obesity E66.9 [facility] [id number] [place] [address] 47044- 9049 Oct, Low back pain M54.5 and Obesity E66.9 [facility] [id number] [place] [address] 01670- 0548 Oct, Low back pain M54.5 ; Obesity E66.9 and Long-term use of high-risk medication Z79.899 [facility] [address] [place] [address]- 6050 September, [facility] [id number] [place] [address] 66358- 9900 September, Low back pain M54.5 ; Obesity E66.9 and Otitis externa of left ear H60.92 [facility] [address] [place] [address] 16191- 7261 Jul, [facility] [id number] [place] [address] 69299- 2374 Jul, [facility] [id number] [place] [address] 16156- 1168 Jul, Low back pain M54.5 and Obesity E66.9 [facility] [address] [place] [address] 79512- 9248 May, Low back pain M54.5 ; Obesity E66.9 and History of long- term use of multiple prescription drugs Z92.29 [facility] [id number] [place] [address] [id number] Apr, Encounter for dental examination Z01.20 [facility] [id number] [place] [address] [id number] Apr, Encounter for dental examination Z01.20 [facility] [address] [place] [address] 12129- 9753 Apr, [facility] [id number] [place] [address] 20409- 8916 Apr, Low back pain M54.5 and Obesity E66.9 [facility] [id number] [place] [address] 13035- 0396 Mar, Low back pain M54.5 and Obesity E66.9 [facility] [address] [place] [address] 49668- 0533 13 Feb, 2015 Lumbago 724.2 and Obesity, unspecified 278.00 [facility] [id number] [place] [address] 96363- 2882 Jan, Unspecified episodic mood disorder 296.90 and Anxiety state , unspecified 300.00 [facility] [id number] [place] [address] 85542- 9559 Jan, Lumbago 724.2 and Obesity, unspecified 278.00 [facility] [id number] [place] [address] 53215- 8672 Jan, [facility] [id number] [place] [address] 86831- 4607 Dec, Lumbago 724.2 and Obesity, unspecified 278.00 [facility] [id number] [place] [address] 11254- 6444 Nov, Lumbago 724.2 and Obesity, unspecified 278.00 [facility] [id number] [place] [address] 44872- 7502 Oct, Lumbago 724.2 and Obesity, unspecified 278.00 [facility] [id number] [place] [address] 59639- 0086 September, Otitis externa of left ear 380.10 ; Ear pain 388.70 and Tooth decayed 521.00 [facility] [address] [place] [address] 56455- 2036 September, Lumbago 724.2 ; Obesity, unspecified 278.00 ; Other chronic pain 338.29 and Unspecified symptom associated with female genital organs 625.9 [facility] [id number] [place] [address] 30219- 9037 Aug, [facility] [id number] [place] [address] 59764- 0210 Aug, [facility] [id number] [place] [address] 65451- 1311 Jul, [facility] [id number] [place] [address] 93520- 3793 Jul, [facility] [place] [facility] [address] [id number] [place] [address]- 3168 Jul, [facility] [place] [facility] [address] [id number] [place] [address]- 8362 Jul, [facility] [place] [facility] [address] [facility] [id number] [place] [address]- 0221 May, [facility] [place] [facility] [address] [id number] [place] [address]- 5109 May, [facility] [place] [facility] [address] [id number] [place] 9896 May, [facility] [place] [facility] [address] [id number] [place] [address]- 2875 May, [facility] [place] [facility] [address] [id number] [place] [address]- 2073 Apr, [facility] [place] [facility] [address] [id number] [place] [address]- 8470 Apr, [facility] [place] [facility] [address] [id number] [place] [address]- 8165 Mar, [facility] [place] [facility] [address] [id number] [place] [address]- 4982 Mar, [facility] [place] [facility] [address] [id number], [place] [address]- 9250 Feb, [facility] [place] [facility] [address] [id number], [place] [address]- 2337 Feb, [facility] [place] [facility] [address] [id number] [place] [address]- 2361 Jan, [facility] [place] [facility] [address] [id number] [place] [address]- 7068 Jan, [facility] [place] [facility] [address] [id number] [place] [address]- 7061 Dec, [facility] [place] [facility] [address] [facility] [id number] [place] [address]- 1941 Dec, [facility] [address] [facility] [id number] [place] [address]- 9401 Nov, [facility] [address] [facility] [id number] [place] [address]- 2508 Nov, [facility] [address] [facility] [id number], [place] [address]- 6032 Nov, [facility] [address] [facility] [id number] [place] [address]- 9021 Nov, [facility] [address] [facility] [id number] [place] [address]- 4463 Oct, [facility] [address] [facility] [id number] [place] [address]- 7085 Oct, [facility] [address] [address]- 0421 Apr, [facility] [address] [facility] [id number] 9676 Apr, [facility] [address] [address]- 2603 Nov, [facility] [address] [id number] [address]- 4409 Nov, [facility] [address] [id number] [address]- 3546 Jul, [facility] [address] [facility] [id number], [place] [address]- 1886 Jul, [facility] [id number], [place] [address]- 9496 Jan, [facility] [address] [facility] [id number], [place] [address]- 4826 Jul, IMMUNIZATIONS No Known Immunizations SOCIAL HISTORY [...]
[2018-09-05 21:02] LABS: BILIRUBIN,URINE NEGATIVE (NEGATIVE); CLARITY,URINE VERY CLOUDY; COLOR,URINE YELLOW; GLUCOSE, URINE (UA) NEGATIVE (NEGATIVE); KETONES,URINE NEGATIVE (NEGATIVE); LEUKOCYTE ESTERASE ,URINE 3+ (NEGATIVE); NITRITE,URINE POSITIVE (NEGATIVE); PH,URINE 8 (5-9); PROTEIN,URINE NEGATIVE (NEGATIVE); UROBILINOGEN,URINE NORMAL (NORMAL)
--- OUTSIDE RECORDS SUMMARY | 2018-09-05 21:02 | XMS REPORT | Continuity of Care Document ---
Author Organization Unknown Address Unknown Allergies Active Description Code Type Severity Reaction Onset Reported/Identified Relationship to Patient Clinical Status Yes No Known Drug Allergies [id number] Drug Allergy Unknown N/A 01/02/2008 Medications There is no data. Problems Date Dx Coded Attending Type Code Diagnosis Diagnosed By 09/02/2009 CURTIS BEARD MD 256.4 POLYCYSTIC OVARIAN SYNDROME 09/02/2009 CURTIS BEARD MD 599.0 URINARY TRACT INFECTION, SITE NOT SPECIFIED 09/02/2009 MADL SENIOR WEB DEVELOPER, FOSTER L 256.4 POLYCYSTIC OVARIAN SYNDROME 09/02/2009 MADL SENIOR WEB DEVELOPER, FOSTER L 599.0 URINARY TRACT INFECTION, SITE NOT SPECIFIED 09/02/2009 MADL SENIOR WEB DEVELOPER, FOSTER L 256.4 POLYCYSTIC OVARIAN SYNDROME 09/02/2009 MADL SENIOR WEB DEVELOPER, FOSTER L 599.0 URINARY TRACT INFECTION, SITE NOT SPECIFIED 09/02/2009 MADL SENIOR WEB DEVELOPER, FOSTER L 256.4 POLYCYSTIC OVARIAN SYNDROME 09/02/2009 MADL SENIOR WEB DEVELOPER, FOSTER L 599.0 URINARY TRACT INFECTION, SITE NOT SPECIFIED 09/02/2009 MADL SENIOR WEB DEVELOPER, FOSTER L 256.4 POLYCYSTIC OVARIAN SYNDROME 09/02/2009 MADL SENIOR WEB DEVELOPER, FOSTER L 599.0 URINARY TRACT INFECTION, SITE NOT SPECIFIED 09/02/2009 MADL SENIOR WEB DEVELOPER, FOSTER L 256.4 POLYCYSTIC OVARIAN SYNDROME 09/02/2009 MADL SENIOR WEB DEVELOPER, FOSTER L 599.0 URINARY TRACT INFECTION, SITE NOT SPECIFIED 09/02/2009 MADL SENIOR WEB DEVELOPER, FOSTER L 256.4 POLYCYSTIC OVARIAN SYNDROME 09/02/2009 MADL SENIOR WEB DEVELOPER, FOSTER L 599.0 URINARY TRACT INFECTION, SITE NOT SPECIFIED 09/02/2009 MADL SENIOR WEB DEVELOPER, FOSTER L 256.4 POLYCYSTIC OVARIAN SYNDROME 09/02/2009 MADL SENIOR WEB DEVELOPER, FOSTER L 599.0 URINARY TRACT INFECTION, SITE NOT SPECIFIED 09/02/2009 MADL SENIOR WEB DEVELOPER, FOSTER L 256.4 POLYCYSTIC OVARIAN SYNDROME 09/02/2009 MADL SENIOR WEB DEVELOPER, FOSTER L 599.0 URINARY TRACT INFECTION, SITE NOT SPECIFIED 09/02/2009 MOORE DO, JARRED K 256.4 POLYCYSTIC OVARIAN SYNDROME 09/02/2009 MOORE DO, JARRED K 599.0 URINARY TRACT INFECTION, SITE NOT SPECIFIED 09/02/2009 MOORE DO, JARRED K 256.4 POLYCYSTIC OVARIAN SYNDROME 09/02/2009 MOORE DO, JARRED K 599.0 URINARY TRACT INFECTION, SITE NOT SPECIFIED 03/03/2010 CHIRAG SALDAÑA, CURTIS 380.10 INFECTIVE OTITIS EXTERNA, UNSPECIFIED 03/03/2010 MADL SENIOR WEB DEVELOPER, FOSTER L 380.10 INFECTIVE OTITIS EXTERNA, UNSPECIFIED 03/03/2010 MADL SENIOR WEB DEVELOPER, FOSTER L 380.10 INFECTIVE OTITIS EXTERNA, UNSPECIFIED 03/03/2010 MADL SENIOR WEB DEVELOPER, FOSTER L 380.10 INFECTIVE OTITIS EXTERNA, UNSPECIFIED 03/03/2010 MADL SENIOR WEB DEVELOPER, FOSTER L 380.10 INFECTIVE OTITIS EXTERNA, UNSPECIFIED 03/03/2010 MADL SENIOR WEB DEVELOPER, FOSTER L 380.10 INFECTIVE OTITIS EXTERNA, UNSPECIFIED 03/03/2010 MADL SENIOR WEB DEVELOPER, FOSTER L 380.10 INFECTIVE OTITIS EXTERNA, UNSPECIFIED 03/03/2010 MADL SENIOR WEB DEVELOPER, FOSTER L 380.10 INFECTIVE OTITIS EXTERNA, UNSPECIFIED 03/03/2010 MADL SENIOR WEB DEVELOPER, FOSTER L 380.10 INFECTIVE OTITIS EXTERNA, UNSPECIFIED 03/03/2010 MOORE DO, JARRED K 380.10 INFECTIVE OTITIS EXTERNA, UNSPECIFIED 03/03/2010 MOORE DO, JARRED K 380.10 INFECTIVE OTITIS EXTERNA, UNSPECIFIED 06/02/2010 CURTIS BEARD MD V72.42 TEST POSITIVE RESULT 06/02/2010 MADL SENIOR WEB DEVELOPER, FOSTER L V72.42 TEST POSITIVE RESULT 06/02/2010 MADL SENIOR WEB DEVELOPER, FOSTER L V72.42 TEST POSITIVE RESULT 06/02/2010 MADL SENIOR WEB DEVELOPER, FOSTER L V72.42 TEST POSITIVE RESULT 06/02/2010 MADL SENIOR WEB DEVELOPER, FOSTER L V72.42 TEST POSITIVE RESULT 06/02/2010 MADL SENIOR WEB DEVELOPER, FOSTER L V72.42 TEST POSITIVE RESULT 06/02/2010 MADL SENIOR WEB DEVELOPER, FOSTER L V72.42 TEST POSITIVE RESULT 06/02/2010 MADL SENIOR WEB DEVELOPER, FOSTER L V72.42 TEST POSITIVE RESULT 06/02/2010 MADL SENIOR WEB DEVELOPER, FOSTER L V72.42 TEST POSITIVE RESULT 06/02/2010 MOORE DO JARRED K V72.42 TEST POSITIVE RESULT 06/02/2010 MOORE DO JARRED K V72.42 TEST POSITIVE RESULT 07/11/2010 CURTIS BEARD MD 009.1 GASTROENTERITIS INFECT 07/11/2010 MADL SENIOR WEB DEVELOPER, FOSTER L 009.1 GASTROENTERITIS INFECT 07/11/2010 MADL SENIOR WEB DEVELOPER, FOSTER L 009.1 GASTROENTERITIS INFECT 07/11/2010 MADL SENIOR WEB DEVELOPER, FOSTER L 009.1 GASTROENTERITIS INFECT 07/11/2010 MADL SENIOR WEB DEVELOPER, FOSTER L 009.1 GASTROENTERITIS INFECT 07/11/2010 MADL SENIOR WEB DEVELOPER, FOSTER L 009.1 GASTROENTERITIS INFECT 07/11/2010 MADL SENIOR WEB DEVELOPER, FOSTER L 009.1 GASTROENTERITIS INFECT 07/11/2010 MADL SENIOR WEB DEVELOPER, FOSTER L 009.1 GASTROENTERITIS INFECT 07/11/2010 MADL SENIOR WEB DEVELOPER, FOSTER L 009.1 GASTROENTERITIS INFECT 07/11/2010 OSCAR BEYER JARRED K 009.1 GASTROENTERITIS INFECT 07/11/2010 OSCAR BEYER JARRED K 009.1 GASTROENTERITIS INFECT 02/10/2011 CURTIS BEARD MD 611.6 GALACTORRHEA NOT ASSOCIATED WITH CHILDBIRTH 02/10/2011 CURTIS BEARD MD 626.0 AMENORRHEA 02/10/2011 MADL SENIOR WEB DEVELOPER, FOSTER L 611.6 GALACTORRHEA NOT ASSOCIATED WITH CHILDBIRTH 02/10/2011 MADL SENIOR WEB DEVELOPER FOSTER L 626.0 AMENORRHEA 02/10/2011 MADL SENIOR WEB DEVELOPER, FOSTER L 611.6 GALACTORRHEA NOT ASSOCIATED WITH CHILDBIRTH 02/10/2011 MADL SENIOR WEB DEVELOPER FOSTER L 626.0 AMENORRHEA 02/10/2011 MADL SENIOR WEB DEVELOPER FOSTER L 611.6 GALACTORRHEA NOT ASSOCIATED WITH CHILDBIRTH 02/10/2011 MADL SENIOR WEB DEVELOPER, FOSTER L 626.0 AMENORRHEA 02/10/2011 MADL SENIOR WEB DEVELOPER, FOSTER L 611.6 GALACTORRHEA NOT ASSOCIATED WITH CHILDBIRTH 02/10/2011 MADL SENIOR WEB DEVELOPER, FOSTER L 626.0 AMENORRHEA 02/10/2011 MADL SENIOR WEB DEVELOPER, FOSTER L 611.6 GALACTORRHEA NOT ASSOCIATED WITH CHILDBIRTH 02/10/2011 MADL SENIOR WEB DEVELOPER, FOSTER L 626.0 AMENORRHEA 02/10/2011 MADL SENIOR WEB DEVELOPER, FOSTER L 611.6 GALACTORRHEA NOT ASSOCIATED WITH CHILDBIRTH 02/10/2011 MADL SENIOR WEB DEVELOPER, FOSTER L 626.0 AMENORRHEA 02/10/2011 MADL SENIOR WEB DEVELOPER, FOSTER L 611.6 GALACTORRHEA NOT ASSOCIATED WITH CHILDBIRTH 02/10/2011 MADL SENIOR WEB DEVELOPER, FOSTER L 626.0 AMENORRHEA 02/10/2011 MADL SENIOR WEB DEVELOPER, FOSTER L 611.6 GALACTORRHEA NOT ASSOCIATED WITH CHILDBIRTH 02/10/2011 MADL SENIOR WEB DEVELOPER, FOSTER L 626.0 AMENORRHEA 02/10/2011 MOORE DO, JARRED K 611.6 GALACTORRHEA NOT ASSOCIATED WITH CHILDBIRTH 02/10/2011 MOORE DO, JARRED K 626.0 AMENORRHEA 02/10/2011 MOORE DO, JARRED K 611.6 GALACTORRHEA NOT ASSOCIATED WITH CHILDBIRTH 02/10/2011 MOORE DO, JARRED K 626.0 AMENORRHEA 01/20/2013 SHANNAN LUA DO Ot 300.00 ANXIETY STATE NOS 01/20/2013 SHANNAN LUA DO Ot 459.0 HEMORRHAGE NOS 01/20/2013 SHANNAN LUA DO Ot 620.2 OVARIAN CYST NEC/NOS 01/20/2013 SHANNAN LUA DO Ot 644.03 THRT WILLIS LABOR-ANTEPART 01/20/2013 SHANNAN LUA DO Ot 648.43 MENTAL DISORDER-ANTEPART 01/20/2013 SHANNAN LUA DO Ot 649.03 TOBACCO USE DISOR COMP PREG/CHILDBIRTH/P 01/20/2013 SHANNAN LUA DO Ot 654.43 ABN UTERUS NEC-ANTEPART 05/29/2013 CHIRAG ASLDAÑA, CURTIS V65.11 NEW MOMMY VISIT 05/29/2013 MADL SENIOR WEB DEVELOPER, FOSTER L V65.11 NEW MOMMY VISIT 05/29/2013 MADL SENIOR WEB DEVELOPER, FOSTER L V65.11 NEW MOMMY VISIT 05/29/2013 MADL SENIOR WEB DEVELOPER, FOSTER L V65.11 NEW MOMMY VISIT 05/29/2013 MADL SENIOR WEB DEVELOPER, FOSTER L V65.11 NEW MOMMY VISIT 05/29/2013 MADL SENIOR WEB DEVELOPER, FOSTER L V65.11 NEW MOMMY VISIT 05/29/2013 MADL SENIOR WEB DEVELOPER, FOSTER L V65.11 NEW MOMMY VISIT 05/29/2013 MADL SENIOR WEB DEVELOPER, FOSTER L V65.11 NEW MOMMY VISIT 05/29/2013 MADL SENIOR WEB DEVELOPER, FOSTER L V65.11 NEW MOMMY VISIT 05/29/2013 MOORE DO, JARRED K V65.11 NEW MOMMY VISIT 05/29/2013 MOORE DO, JARRED K V65.11 NEW MOMMY VISIT 07/14/2013 LISSA ANDERSON MD Ot 300.00 ANXIETY STATE NOS 07/14/2013 LISSA ANDERSON MD Ot 646.83 PREG COMPL NEC-ANTEPART 07/14/2013 LISSA ANDERSON MD Ot 648.43 MENTAL DISORDER-ANTEPART 07/14/2013 LISSA ANDERSON MD Ot 780.2 SYNCOPE AND COLLAPSE 07/28/2013 LISSA ANDERSON MD Ot 654.21 PREV DELIVRY W/ OR W/O MENT ANT 07/28/2013 LISSA ANDERSON MD Ot 657.01 POLYHYDRAMNIOS,DEL W OR W/O MENTN ANTEPA 07/28/2013 LISSA ANDERSON MD Ot V06.1 [id number], COMBINED [ 07/28/2013 LISSA ANDERSON MD Ot V27.0 DELIVER-SINGLE LIVEBORN 08/09/2013 LISSA ANDERSON MD Ot 288.60 LEUKOCYTOSIS, UNSPECIFIED 08/09/2013 LISSA ANDERSON MD Ot 305.20 CANNABIS ABUSE-UNSPEC 08/09/2013 LISSA ANDERSON MD Ot 541 APPENDICITIS NOS 08/09/2013 LISSA ANDERSON MD Ot 558.9 NONINF GASTROENTERIT NEC 08/09/2013 LISSA ANDERSON MD Ot 599.0 URIN TRACT INFECTION NOS 08/09/2013 LISSA ANDERSON MD Ot 646.64 INFECTION- 08/09/2013 LISSA ANDERSON MD Ot 646.84 PREG COMPL NEC-POSTPART 08/09/2013 LISSA ANDERSON MD, Ot 648.44 MENTAL DISORDER-POSTPART 08/09/2013 LISSA ANDERSON MD, Ot 648.94 OTH CURR COND- 08/09/2013 LISSA ANDERSON MD, Ot 649.04 TOBACCO USE DISOR COMP PREG/CHILDBIRTH/P 08/09/2013 LISSA ANDERSON MD Ot 789.03 ABDOMINAL PAIN, RIGHT LOWER QUADRANT 09/30/2013 LISSA ANDERSON MD Ot 218.2 SUBSEROUS LEIOMYOMA 09/30/2013 LISSA ANDERSON MD Ot 568.0 PERITONEAL [id number] 09/30/2013 LISSA ANDERSON MD Ot 614.1 CHR SALPINGO-OOPHORITIS 09/30/2013 LISSA ANDERSON MD Ot 617.9 ENDOMETRIOSIS NOS 09/30/2013 LISSA ANDERSON MD Ot 618.00 UNSPECIFIED PROLAPSE OF VAGINAL MADRID 09/30/2013 LISSA ANDERSON MD Ot 625.9 FEM GENITAL SYMPTOMS NOS 09/30/2013 LISSA ANDERSON MD Ot 626.2 EXCESSIVE MENSTRUATION 09/30/2013 LISSA ANDERSON MD Ot 626.8 MENSTRUAL DISORDER NEC 11/22/2013 FOSTER PRINCE APRN L 338.29 OTHER CHRONIC PAIN 11/22/2013 KAT PRINCE APRNA L 625.9 UNSPECIFIED SYMPTOM ASSOCIATED WITH FEMALE GENITAL ORGANS 11/22/2013 FOSTER PRINCE APRN L 338.29 OTHER CHRONIC PAIN 11/22/2013 KAT PRINCE APRNA L 625.9 UNSPECIFIED SYMPTOM ASSOCIATED WITH FEMALE GENITAL ORGANS 11/22/2013 MADL SENIOR WEB DEVELOPER, FOSTER L 338.29 OTHER CHRONIC PAIN 11/22/2013 MADL SENIOR WEB DEVELOPER, FOSTER L 625.9 UNSPECIFIED SYMPTOM ASSOCIATED WITH FEMALE GENITAL ORGANS 11/22/2013 MADL SENIOR WEB DEVELOPER, FOSTER L 338.29 OTHER CHRONIC PAIN 11/22/2013 MADL SENIOR WEB DEVELOPER, FOSTER L 625.9 UNSPECIFIED SYMPTOM ASSOCIATED WITH FEMALE GENITAL ORGANS 11/22/2013 MADL SENIOR WEB DEVELOPER, FOSTER L 338.29 OTHER CHRONIC PAIN 11/22/2013 MADL SENIOR WEB DEVELOPER, FOSTER L 625.9 UNSPECIFIED SYMPTOM ASSOCIATED WITH FEMALE GENITAL ORGANS 11/22/2013 MADL SENIOR WEB DEVELOPER, FOSTER L 338.29 OTHER CHRONIC PAIN 11/22/2013 MADL SENIOR WEB DEVELOPER, FOSTER L 625.9 UNSPECIFIED SYMPTOM ASSOCIATED WITH FEMALE GENITAL ORGANS 11/22/2013 MADL SENIOR WEB DEVELOPER, FOSTER L 338.29 OTHER CHRONIC PAIN 11/22/2013 MADL SENIOR WEB DEVELOPER, FOSTER L 625.9 UNSPECIFIED SYMPTOM ASSOCIATED WITH FEMALE GENITAL ORGANS 11/22/2013 MADL SENIOR WEB DEVELOPER, FOSTER L 338.29 OTHER CHRONIC PAIN 11/22/2013 MADL SENIOR WEB DEVELOPER, FOSTER L 625.9 UNSPECIFIED SYMPTOM ASSOCIATED WITH FEMALE GENITAL ORGANS 11/22/2013 MOORE DO, JARRED K 338.29 OTHER CHRONIC PAIN 11/22/2013 MOORE DO, JARRED K 625.9 UNSPECIFIED SYMPTOM ASSOCIATED WITH FEMALE GENITAL ORGANS 11/22/2013 MOORE DO, JARRED K 338.29 OTHER CHRONIC PAIN 11/22/2013 MOORE DO, JARRED K 625.9 UNSPECIFIED SYMPTOM ASSOCIATED WITH FEMALE GENITAL ORGANS 12/06/2013 MADL SENIOR WEB DEVELOPER, FOSTER L 724.2 LUMBAGO 12/06/2013 MADL SENIOR WEB DEVELOPER, FOSTER L 724.2 LUMBAGO 12/06/2013 MADL SENIOR WEB DEVELOPER, FOSTER L 724.2 LUMBAGO 12/06/2013 MADL SENIOR WEB DEVELOPER, FOSTER L 724.2 LUMBAGO 12/06/2013 MADL SENIOR WEB DEVELOPER, FOSTER L 724.2 LUMBAGO 12/06/2013 MADL SENIOR WEB DEVELOPER, FOSTER L 724.2 LUMBAGO 12/06/2013 MADL SENIOR WEB DEVELOPER, FOSTER L 724.2 LUMBAGO 12/06/2013 MOORE DO, JARRED K 724.2 LUMBAGO 12/06/2013 MOORE DO, JARRED K 724.2 LUMBAGO 03/09/2014 MADL SENIOR WEB DEVELOPER, FOSTER L 692.9 CONTACT DERMATITIS AND OTHER ECZEMA UNSPECIFIED CAUSE 03/09/2014 MADL SENIOR WEB DEVELOPER, FOSTER L 692.9 CONTACT DERMATITIS AND OTHER ECZEMA UNSPECIFIED CAUSE 03/09/2014 MADL SENIOR WEB DEVELOPER, FOSTER L 692.9 CONTACT DERMATITIS AND OTHER ECZEMA UNSPECIFIED CAUSE 03/09/2014 MADL SENIOR WEB DEVELOPER, FOSTER L 692.9 CONTACT DERMATITIS AND OTHER ECZEMA UNSPECIFIED CAUSE 03/09/2014 MOORE DO, JARRED K 692.9 CONTACT DERMATITIS AND OTHER ECZEMA UNSPECIFIED CAUSE 03/09/2014 MOORE DO, JARRED K 692.9 CONTACT DERMATITIS AND OTHER ECZEMA UNSPECIFIED CAUSE 04/09/2014 MADL SENIOR WEB DEVELOPER, FOSTER L 278.00 OBESITY UNSPECIFIED 04/09/2014 MADL SENIOR WEB DEVELOPER, FOSTER L 278.00 OBESITY UNSPECIFIED 04/09/2014 MADL SENIOR WEB DEVELOPER, FOSTER L 278.00 OBESITY UNSPECIFIED 04/09/2014 MOORE DO, JARRED K 278.00 OBESITY UNSPECIFIED 04/09/2014 MOORE DO, JARRED K 278.00 OBESITY UNSPECIFIED 09/21/2014 OSCAR BEYER JARRED K V81.1 HYPERTENSION SCREENING 03/22/2018 LISSA ANDERSON MD Ot 285.9 ANEMIA NOS 03/22/2018 LISSA ANDERSON MD Ot 648.23 ANEMIA-ANTEPARTUM 03/22/2018 LISSA ANDERSON MD Ot 654.23 PREV DELIVERY, ANTEPARTUM COND 03/22/2018 LISSA ANDERSON MD Ot V72.63 PRE-PROCEDURAL LABORATORY EXAMINATION 03/22/2018 LISSA ANDERSON MD Ot V74.8 SCREEN-BACTERIAL DIS NEC 03/22/2018 LISSA ANDERSON MD Ot 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 03/22/2018 LISSA ANDERSON MD Ot 786.50 CHEST PAIN NOS 03/22/2018 LISSA ANDERSON MD Ot V45.89 POSTSURGICAL STATES NEC 03/22/2018 LISSA ANDERSON MD Ot 618.1 UTERINE PROLAPSE 03/22/2018 LISSA ANDERSON MD, Ot V72.63 PRE-PROCEDURAL LABORATORY EXAMINATION 03/22/2018 LISSA ANDERSON MD Ot V72.84 EXAM PRE-OPERATIVE NOS 03/22/2018 LISSA ANDERSON MD Ot V74.8 SCREEN-BACTERIAL DIS NEC 09/05/2018 LISSA ANDERSON MD Ot 285.9 ANEMIA NOS 09/05/2018 LISSA ANDERSON MD Ot 648.23 ANEMIA-ANTEPARTUM 09/05/2018 LISSA ANDERSON MD Ot 654.23 PREV DELIVERY, ANTEPARTUM COND 09/05/2018 LISSA ANDERSON MD, Ot V72.63 PRE-PROCEDURAL LABORATORY EXAMINATION 09/05/2018 LISSA ANDERSON MD Ot V74.8 SCREEN-BACTERIAL DIS NEC 09/05/2018 LISSA ANDERSON MD Ot 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 09/05/2018 LISSA ANDERSON MD Ot 786.50 CHEST PAIN NOS 09/05/2018 LISSA ANDERSON MD Ot V45.89 POSTSURGICAL STATES NEC 09/05/2018 LISSA ANDERSON MD Ot 618.1 UTERINE PROLAPSE 09/05/2018 LISSA ANDERSON MD Ot V72.63 PRE-PROCEDURAL LABORATORY EXAMINATION 09/05/2018 LISSA ANDERSON MD Ot V72.84 EXAM PRE-OPERATIVE NOS 09/05/2018 LISSA ANDERSON MD, Ot V74.8 SCREEN-BACTERIAL DIS NEC Procedures Code Description Performed By Performed On 72.9 INSTRUMENT DELIVERY NOS 07/26/2013 74.1 LOW CERVICAL 07/26/2013 18333 XRAY LUMBAR SPINE 2 OR 3 VIEWS 12/06/2013 49719 [employer] 12/06/2013 BLOOD PRESSURE CHECK 06/08/2014 WEIGHT CHECK 06/08/2014 BLOOD PRESSURE CHECK 09/21/2014 WEIGHT CHECK 09/21/2014 Results Test Result Range CMP - 10/19/14 00:00 Glucose, Serum 84 mg/dL 65-99 BUN 9 mg/dL 6-20 Creatinine, Serum 0.79 mg/dL 0.57-1.00 eGFR If NonAfricn Am 98 mL/min/1.73 >59 eGFR If Africn Am 113 mL/min/1.73 >59 BUN/Creatinine Ratio 11 8-20 Sodium, Serum 143 mmol/L 134-144 Potassium, Serum 4.3 mmol/L 3.5-5.2 Chloride, Serum 101 mmol/L 97-108 Carbon Dioxide, Total 25 mmol/L 18-29 Calcium, Serum 9.3 mg/dL 8.7-10.2 Protein, Total, Serum 6.6 g/dL 6.0-8.5 Albumin, Serum 4.3 g/dL 3.5-5.5 Globulin, Total 2.3 g/dL 1.5-4.5 A/G Ratio 1.9 1.1-2.5 Bilirubin, Total 0.2 mg/dL 0.0-1.2 Alkaline Phosphatase, S 96 IU/L 39-117 AST (SGOT) 13 IU/L 0-40 ALT (SGPT) 14 IU/L 0-32 CBC With Differential/Platelet - 08/06/16 10:46 WBC 9.6 x10E3/uL 3.4-10.8 RBC 5.12 x10E6/uL 3.77-5.28 Hemoglobin 15.0 g/dL 11.1-15.9 Hematocrit 43.2 % 34.0-46.6 MCV 84 fL 79-97 MCH 29.3 pg 26.6-33.0 MCHC 34.7 g/dL 31.5-35.7 RDW 13.7 % 12.3-15.4 Platelets 258 x10E3/uL 150-379 Neutrophils 58 % Lymphs 30 % Monocytes 9 % Eos 1 % Basos 1 % Neutrophils (Absolute) 5.7 x10E3/uL 1.4-7.0 Lymphs (Absolute) 2.9 x10E3/uL 0.7-3.1 Monocytes(Absolute) 0.9 x10E3/uL 0.1-0.9 Eos (Absolute) 0.1 x10E3/uL 0.0-0.4 Baso (Absolute) 0.1 x10E3/uL 0.0-0.2 Immature Granulocytes 1 % Immature Grans (Abs) 0.1 x10E3/uL 0.0-0.1 Comp. Metabolic Panel (14) - 08/06/16 10:46 Glucose, Serum 91 mg/dL 65-99 BUN 9 mg/dL 6-20 Creatinine, Serum 0.93 mg/dL 0.57-1.00 eGFR If NonAfricn Am 79 mL/min/1.73 >59 eGFR If Africn Am 91 mL/min/1.73 >59 BUN/Creatinine Ratio 10 8-20 Sodium, Serum 141 mmol/L 134-144 Potassium, Serum 5.0 mmol/L 3.5-5.2 Chloride, Serum 102 mmol/L 96-106 Carbon Dioxide, Total 26 mmol/L 18-29 Calcium, Serum 9.0 mg/dL 8.7-10.2 Protein, Total, Serum 6.7 g/dL 6.0-8.5 Albumin, Serum 4.0 g/dL 3.5-5.5 Globulin, Total 2.7 g/dL 1.5-4.5 A/G Ratio 1.5 1.1-2.5 Bilirubin, Total 0.4 mg/dL 0.0-1.2 Alkaline Phosphatase, S 73 IU/L 39-117 AST (SGOT) 20 IU/L 0-40 ALT (SGPT) 30 IU/L 0-32 CBC+Platelet+Hem Review - 01/27/17 13:41 WBC 10.2 x10E3/uL 3.4-10.8 RBC 5.26 x10E6/uL 3.77-5.28 Hemoglobin 15.5 g/dL 11.1-15.9 Hematocrit 45.1 % 34.0-46.6 MCV 86 fL 79-97 MCH 29.5 pg 26.6-33.0 MCHC 34.4 g/dL 31.5-35.7 RDW 13.3 % 12.3-15.4 Platelets 301 x10E3/uL 150-379 Neutrophils 59 % Lymphs 36 % Monocytes 3 % Eos 0 % Basos 2 % Neutrophils Absolute 6.0 X10E3/uL 1.4-7.0 Lymphs (Absolute) 3.7 X10E3/uL 0.7-3.1 Monocytes(Absolute) 0.3 X10E3/uL 0.1-0.9 Eos (Absolute Value) 0.0 X10E3/uL 0.0-0.4 Baso(Absolute) 0.2 X10E3/uL 0.0-0.2 Differential Comment Note: RBC Comment Note: Normal Platelet Comment Note: Adequate CBC w/ MANUAL DIFF - 01/27/17 13:41 WBC 10.2 x10E3/uL 3.4-10.8 RBC 5.26 x10E6/uL 3.77-5.28 Hemoglobin 15.5 g/dL 11.1-15.9 Hematocrit 45.1 % 34.0-46.6 MCV 86 fL 79-97 MCH 29.5 pg 26.6-33.0 MCHC 34.4 g/dL 31.5-35.7 RDW 13.3 % 12.3-15.4 Platelets 301 x10E3/uL 150-379 Neutrophils 59 % NRG Lymphs 36 % NRG Monocytes 3 % NRG Eos 0 % NRG Basos 2 % NRG Neutrophils Absolute 6.0 X10E3/uL 1.4-7.0 Lymphs (Absolute) 3.7 X10E3/uL 0.7-3.1 Monocytes(Absolute) 0.3 X10E3/uL 0.1-0.9 Eos (Absolute Value) 0.0 X10E3/uL 0.0-0.4 Baso(Absolute) 0.2 X10E3/uL 0.0-0.2 Differential Comment Note: NRG RBC Comment Note: Normal Platelet Comment Note: Adequate CBC w/MANUAL DIFF - 07/20/17 18:13 WHITE BLOOD CELL COUNT 11.9 Thousand/uL 3.8-10.8 RED BLOOD CELL COUNT 5.34 Million/uL 3.80-5.10 HEMOGLOBIN 16.0 g/dL 11.7-15.5 HEMATOCRIT 45.7 % 35.0-45.0 MCV 85.6 fL 80.0-100.0 MCH 30.0 pg 27.0-33.0 MCHC 35.0 g/dL 32.0-36.0 RDW 13.0 % 11.0-15.0 PLATELET COUNT 350 Thousand/uL 140-400 MPV 10.0 fL 7.5-12.5 DIFFERENTIAL, MANUAL - 07/20/17 18:13 ABSOLUTE NEUTROPHILS 7116 cells/uL [id number] ABSOLUTE MONOCYTES 928 cells/uL 200-950 ABSOLUTE EOSINOPHILS 119 cells/uL 15-500 ABSOLUTE BASOPHILS 119 cells/uL 0-200 NEUTROPHILS 59.8 % NRG LYMPHOCYTES 29.4 % NRG MONOCYTES 7.8 % NRG EOSINOPHILS 1.0 % NRG BASOPHILS 1.0 % NRG ABSOLUTE BAND NEUTROPHILS 119 cells/uL 0-750 ABSOLUTE LYMPHOCYTES 3499 cells/uL 850-3900 BAND NEUTROPHILS 1.0 % NRG PDM - PAIN MGMT (PROFILE 3 WITH CONFIRMATION) - 12/16/17 17:00 Creatinine 47.1 mg/dL > or=20.0 pH 6.80 4.5 - 9.0 Oxidant NEGATIVE mcg/mL <200 Amphetamines NEGATIVE ng/mL <500 medMATCH Amphetamines CONSISTENT NRG Benzodiazepines NEGATIVE ng/mL <100 medMATCH Benzodiazepines CONSISTENT NRG Marijuana Metabolite NEGATIVE ng/mL <20 medMATCH Marijuana Metab CONSISTENT NRG Cocaine Metabolite NEGATIVE ng/mL <150 medMATCH Cocaine Metab CONSISTENT NRG Opiates NEGATIVE ng/mL <100 medMATCH Opiates CONSISTENT NRG Oxycodone NEGATIVE ng/mL <100 medMATCH Oxycodone CONSISTENT NRG COMMENT NRG CBC - 03/16/18 13:29 WHITE BLOOD CELL COUNT 12.1 Thousand/uL 3.8-10.8 RED BLOOD CELL COUNT 5.18 Million/uL 3.80-5.10 HEMOGLOBIN 15.6 g/dL 11.7-15.5 HEMATOCRIT 44.9 % 35.0-45.0 MCV 86.7 fL 80.0-100.0 MCH 30.1 pg 27.0-33.0 MCHC 34.7 g/dL 32.0-36.0 RDW 13.5 % 11.0-15.0 PLATELET COUNT 294 Thousand/uL 140-400 MPV 10.1 fL 7.5-12.5 ABSOLUTE NEUTROPHILS 7538 cells/uL 9654-2056 ABSOLUTE LYMPHOCYTES 3158 cells/uL 850-3900 ABSOLUTE MONOCYTES 1125 cells/uL 200-950 ABSOLUTE EOSINOPHILS 145 cells/uL 15-500 ABSOLUTE BASOPHILS 133 cells/uL 0-200 NEUTROPHILS 62.3 % NRG LYMPHOCYTES 26.1 % NRG MONOCYTES 9.3 % NRG EOSINOPHILS 1.2 % NRG BASOPHILS 1.1 % NRG Encounters ACCT No. Visit Date/Time Discharge Status Pt. Type Provider Facility Loc./Unit Complaint [id number] 09/21/2014 15:27:00 09/21/2014 23:59:59 CLS Outpatient JARRED MOORE DO [id number] 08/20/2014 08:57:00 08/20/2014 23:59:59 CLS Outpatient JARRED MOORE DO [id number] 06/08/2014 09:59:00 06/08/2014 23:59:59 CLS Outpatient MADL SENIOR WEB DEVELOPER, FOSTER L [id number] 05/08/2014 09:03:00 05/08/2014 23:59:59 CLS Outpatient MADL SENIOR WEB DEVELOPER, FOSTER L [id number] 04/09/2014 10:59:00 04/09/2014 23:59:59 CLS Outpatient MADL SENIOR WEB DEVELOPER, FOSTER L [id number] 03/09/2014 08:26:00 03/09/2014 23:59:59 CLS Outpatient MADL SENIOR WEB DEVELOPER, FOSTER L [id number] 02/08/2014 10:53:00 02/08/2014 23:59:59 CLS Outpatient MADL SENIOR WEB DEVELOPER, FOSTER L [id number] 01/08/2014 11:08:00 01/08/2014 23:59:59 CLS Outpatient MADL SENIOR WEB DEVELOPER, FOSTER L [id number] 12/06/2013 10:29:00 12/06/2013 23:59:59 CLS Outpatient MADL SENIOR WEB DEVELOPER, FOSTER L [id number] 11/22/2013 09:09:00 11/22/2013 23:59:59 CLS Outpatient MADL SENIOR WEB DEVELOPER, FOSTER L [id number] 05/29/2013 09:26:00 05/29/2013 23:59:59 CLS Outpatient CURTIS BEARD MD [id number] 12/08/2017 16:52:09 12/08/2017 23:59:59 CLS Outpatient [id number] 04/06/2018 08:15:00 04/06/2018 23:59:59 CLS Preadmit KING ALCIDES D SENIOR WEB DEVELOPER [facility] RAD NIPPLE DISCHARGE [id number] 03/25/2018 16:00:00 03/25/2018 23:59:59 CLS Preadmit JACQUE, ALCIDES D SENIOR WEB DEVELOPER [facility] RAD SUBMANDIBULAR LYMPADENOPATHY [id number] 07/22/2017 08:52:00 07/22/2017 23:59:59 CLS Preadmit MADL, FOSTER L WIND OPERATIONS MANAGER [facility] RAD R59.0 SUBMANDIBULAR LYMPHADENOPATHY [id number] 01/28/2017 13:38:00 01/28/2017 23:59:59 CLS Preadmit DANNYFadia FOSTER Loaiza WIND OPERATIONS MANAGER [facility] RAD ANTERIOR CERVICAL ADENOPATHY [id number] 09/29/2013 10:57:00 09/30/2013 13:40:00 DIS Outpatient LISSA ANDERSON MD [facility] SDC UTERINE PROLAPSE [id number] 09/26/2013 08:39:00 09/26/2013 23:59:59 CLS Outpatient LISSA ANDERSON MD [facility] PREOP UTERINE PROLAPSE [id number] 08/09/2013 13:17:00 08/09/2013 22:10:00 DIS Inpatient LISSA ANDERSON MD [facility] WS ABDOMINAL PAIN [id number] 08/04/2013 10:14:00 08/04/2013 23:59:59 CLS Outpatient LISSA ANDERSON MD [facility] RAD CHEST PAIN STATUS POST CSECTION [id number] 07/26/2013 15:09:00 07/28/2013 14:00:00 DIS Inpatient LISSA ANDERSON MD [facility] WS PREVIOUS SECTION [id number] 07/25/2013 11:59:00 07/25/2013 23:59:59 CLS Outpatient LISSA ANDERSON MD [facility] PREOP PREVIOUS SECTION [id number] 07/14/2013 11:08:00 07/14/2013 13:35:00 DIS Outpatient LISSA ANDERSON MD [facility] WSo C/O SOB,RACING HEART [id number] 01/19/2013 22:09:00 01/20/2013 02:52:00 DIS Emergency SHANNAN LUA DO [facility] ER BLEEDING [id number] 09/05/2018 20:49:00 ACT Emergency SHANNAN LUA DO [facility] ER ABD PAIN [id number] 08/07/2016 07:06:00 Document Registration [id number] 01/29/2017 08:35:00 Document Registration [id number] 05/10/2018 15:00:00 05/10/2018 23:59:59 [facility] Outpatient ALCIDES SANTILLAN [facility] [id number] 03/16/2018 13:00:00 Document Registration [id number] 12/16/2017 16:40:00 Document Registration [id number] 07/20/2017 16:40:00 Document Registration [id number] 01/27/2017 13:00:00 Document Registration [id number] 10/19/2014 11:15:00 Document Registration
--- OUTSIDE RECORDS SUMMARY | 2018-09-05 21:02 | XMS REPORT | Continuity of Care Document ---
Author Author [facility] Organization [facility] Address Unknown Phone Unavailable Care Team Providers Care Glass Bulb Silverer Name Role Phone LISSA ANDERSON MD PP Insurance Providers Payer Name Policy Number Subscriber Name Relationship [facility] [id number] Diamond Shepherd Fadia 01 Self / Same As Patient Advance Directives Directive Response Recorded Date Advance Directives N 01/19/13 10:14pm Health Care Power of Call Specialist N 01/19/13 10:14pm Organ Donor N 01/19/13 10:14pm Problems No Known Problems or Medical conditions. Family History History Response Recorded Date/Time Hx Family Cancer Y GRANDMOTHER SOME TYPE 08/10/12 6:11am Hx Family Cardiac Disorders N 08/10/12 6: 11am Social History History Response Recorded Date/Time Alcohol Use Denies Use 01/19/13 10:14pm Recreational Drug Use Y OVER 10 YEARS AGO 01/20/13 2:16am Recent Foreign Travel N 01/19/13 10:14pm Hospitalization with Isolation Denies 10:14pm Allergies, Adverse Reactions, Alerts Allergen Type Severity Reaction Last Updated No Known Drug Allergies 01/02/08 Medications Medication Dose Units Route Sig Qty Days Docusate Sodium (Colace) 100 Mg PO BID 60 Ibuprofen (Motrin) 800 Mg PO Q6HR PRN 60 Acetaminophen/Hydrocodone Bitart (Lorcet Plus 10/325 Mg) 1 - 2 Tab PO Q3H PRN 60 Vits W-Ca,Fe,Fa(<1MG) ( Vitamins) 1 Each PO DAILY Response Recorded Date/Time Status not known Unknown Results No Known Relevant Diagnostic Tests, Laboratory Data and/or Discharge Summary. Procedures Procedure Code Date REMOV TUBE & ECTOP PREG 66.62 12/22/06 D & C NEC 69.09 12/22/06 LOW CERVICAL 74.1 01/02/08 LAPAROSCOPIC CHOLECYSTECTOMY 96022 RPR VENTRAL [place] INIT REDUC 11611 HERNIA REPAIR W/MESH 37784 09/13/08 LOW CERVICAL 74.1 08/10/12 INSTRUMENT DELIVERY NOS 72.9 08/10/12 Encounters Encounter Location Date/Time Departed Emergency Room [facility] 10:09pm Discharged Inpatient [facility] 6:00am
[2018-09-05 21:12] LABS: BACTERIA,URINE LARGE /HPF; RBC,URINE RARE /HPF; WBC,URINE 25-50 /HPF
[2018-09-05] MEDS ORDERED: NITR-65 PO (21:24)
--- NOTE | 2018-09-05 21:24 | ED GU-Female ---
General Chief Complaint: - Urinary Stated Complaint: ABD PAIN Source: patient Exam Limitations: no limitations History of Present Illness Date Seen by Provider: Sep 05, 2018 Time Seen by Provider: 20:55 Initial Comments 38-year-old female who presents to the emergency room with complaints of suprapubic abdominal pain and burning with urination for the past 2 days. Denies fevers nausea vomiting. Reports history of urinary tract infections. Severity/Quality: burning Location: urethral Radiation: suprapubic Associated Symptoms: dysuria, urinary frequency Allergies and Home Medications Allergies Coded Allergies: No Known Drug Allergies (Verified , 01/02/08) Home Medications Docusate Sodium 100 Mg Capsule, 1 CAP PO DAILY PRN for CONSTIPATION Prescribed by: LISSA LESTER on 09/30/13 08 Hydrocodone Bit/Acetaminophen 1 Each Tablet, 1-2 TAB PO Q3H PRN for PAIN Prescribed by: LISSA LESTER on 09/30/13 0802 Ibuprofen 800 Mg Tablet, 1 TAB PO Q6H PRN for PAIN Prescribed by: LISSA LESTER on 09/30/13 0802 Nitrofurantoin Monohyd/M-Cryst 100 Mg Capsule, 1 TAB PO BID Prescribed by: MARIO YE on 09/05/182123 Phentermine Hcl 37.5 Mg Tab.rapdis, 37.5 MG PO DAILY, (Reported) Patient Home Medication List Home Medication List Reviewed: Yes Review of Systems Review of Systems Constitutional: see HPI; No chills, No fever Genitourinary: see HPI, burning, urgency All Other Systemes Reviewed Negative Unless Noted: Yes Past Hhmzwag-Wzlhyj-Ponnge Hx Past Med/Social Hx: Reviewed Nursing Past Med/Soc Hx Patient Social History Recent Foreign Travel: No Contact w/Someone Who Travel: No Immunizations Up To Date Tetanus Booster (TDap): Less than 5yrs Past Medical History 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) Female Reproductive Disorders: Ovarian Cyst, Polycystic Ovarian Dis Sexually Transmitted Disease: No HIV/AIDS: No Gastroesophageal Reflux, Gall Bladder Disease Family Medical History Reviewed Nursing Family Hx Cancer GRANDPARENTS Family history: Arthritis 03 MOTHER Family history: Diabetes mellitus 03 FATHER Family history: Hypertension 03 FATHER Family history: Thyroid disorder 03 MOTHER No Family History of: Abdominal aortic aneurysm Alcoholism Congenital heart disease Congestive heart failure Family history: Allergy Family history: Alzheimer's disease Family history: Asthma Family history: Breast disease Family history: Cardiovascular disease Family history: Gastrointestinal disease Hereditary disease History of - respiratory disease Myocardial infarction Parkinson's disease Psychotic disorder Stroke Physical Exam Vital Signs Vital Signs - First Documented 09/05/18 20:54 Temp 99.0 Pulse 90 Resp 18 B/P (MAP) 148/103 (118) Pulse Ox 97 O2 Delivery Room Air Capillary Refill : Height, Weight, BMI Height: 5'6.00" Weight: 215lbs. 0.0oz. 97.158588iv; BMI Method:Stated General Appearance: WD/WN, no apparent distress Cardiovascular: normal peripheral pulses, regular rate, rhythm, no edema, no gallop, no JVD, no murmur Respiratory: chest non-tender, lungs clear, normal breath sounds, no respiratory distress, no accessory muscle use, respiratory distress Gastrointestinal: normal bowel sounds, non tender, soft, no organomegaly, no pulsatile mass, abnormal bowel sounds Extremities: normal capillary refill Neurologic/Psychiatric: alert, normal mood/affect, oriented x 3 Skin: normal color, warm/dry Progress/Results/Core Measures Suspected Sepsis SIRS Temperature: Pulse: Respiratory Rate: Blood Pressure / Mean: Results/Orders Lab Results Micro Results My Orders Vital Signs/I&O Capillary Refill : Departure Impression Primary Impression: Urinary tract infection Disposition: 01 HOME, SELF-CARE Condition: Stable/Unchanged Departure-Patient Inst. Decision time for Depature: 21:23 Referrals: [facility]/ (PCP) Primary Care Physician ALCIDES SANTILLAN APRN (Family) Primary Care Physician Patient Instructions: Urinary Tract Infection, Adult (DC) Add. Discharge Instructions: Take medications as directed. Tylenol Motrin as directed by the bottle for pain relief. Drink plenty of clear liquids to stay hydrated and help flush out your urinary tract. Follow-up with your primary care provider within 1 week for recheck. Return back to the emergency room for worsening symptoms or concerns as needed. All discharge instructions reviewed with patient and/or family. Voiced understanding. Scripts Nitrofurantoin Monohyd/M-Cryst (Macrobid 100 mg Capsule) 100 Mg Capsule 1 TAB PO BID for 7 Days, #14 CAP Prov: MARIO YE 09/05/18 MARIO YE Sep 05, 2018 21:24
[2018-09-05] MEDS ORDERED: NITROFURANTOIN 100 MG (MACROBID) CAPSULE PO ONE (21:30)
[2018-09-05 21:33] VITALS: BP 148/103
== END 2018-09-05 21:36 | disposition home or self-care (01) ==
LOC: EDUNIT# 20:48 → ER 20:49
DX: N39.0 Urinary tract infection, site not specified (principal); K21.9 Gastro-esophageal reflux disease without esophagitis; Z87.448 Personal history of other diseases of urinary system
CPT/HCPCS: 81000; 87077; 87088; 87186; 99283